=== PATIENT | male | born 1985 | race Caucasian/White ===

== ENCOUNTER 2017-10-17 21:50 | Inpatient (IN) | payer SELFPAY ==
[~2017-10-17] VITALS: Ht 167.6 cm; Wt 71.4 kg
[2017-10-17 22:24] VITALS: BP 112/62; PULSE 127; RESP 20; TEMP 99.3; O2SAT 97
[2017-10-17] MEDS ORDERED: SODIUM CHLOR 0.9% 1000 ML INJ 1,000 ML IV ONE ×2 (23:08)
[2017-10-17] MEDS ORDERED: SODIUM CHLOR 0.9% 1000 ML INJ 400 ML IV ONE (23:08)
[2017-10-17] MEDS ORDERED: MORPHINE SULFATE 8 MG/ML INJ IV PUSH ONE (23:15)
[2017-10-17] MEDS ORDERED: KETOROLAC TROMETHAMINE 30 MG/ML (IVP) VIAL IV PUSH ONE (23:15)
--- NOTE | 2017-10-17 23:55 | RADRPT ---
EXAM DATE: 10/17/2017 11:36 PM EDT AGE/SEX: 32 years / Male INDICATIONS: Fever. Cough. CLINICAL DATA: This is the patient's initial encounter. Patient reports that signs and symptoms have been present for 3 days and indicates a pain score of 5/10. MEDICAL/SURGICAL HISTORY: None. None. COMPARISON: No prior [facility] exams available for comparison. FINDINGS: Trace atelectasis versus early infiltrate right base. Lungs otherwise appear clear. No pleural effusi on. No pneumothorax. Normal heart size. Visualized osseous structures are grossly unremarkable. CONCLUSION: Trace atelectasis and/or infiltrate right base. Electronically signed by: Antony Mathew MD 10/17/2017 11:53 PM EDT
[2017-10-18] LABS: AUTOMATED NEUTROPHIL # 5.3 TH/MM3 (1.8-7.7); BASOPHIL % 0.3 % (0.0-2.0); EOSINOPHIL # 0.1 TH/MM3 (0-0.4); EOSINOPHIL % 1.1 % (0.0-4.0); LYMPHOCYTE # 2.1 TH/MM3 (1.0-4.8); MEAN CELL VOLUME 84.5 FL (80.0-100.0); MEAN CORPUSCULAR HEMOGLOBIN 29.9 PG (27.0-34.0); MEAN CORPUSCULAR HGB CONC 35.4 % (32.0-36.0); MEAN PLATELET VOLUME 7.1 FL (7.0-11.0); MONO % 11.9 % (0.0-8.0); NEUT % 61.7 % (16.0-70.0); PLATELET COUNT 233 TH/MM3 (150-450); RED BLOOD COUNT 4.03 MIL/MM3 (4.50-5.90); RED CELL DISTRIBUTION WIDTH 13.1 % (11.6-17.2); WHITE BLOOD COUNT 8.6 TH/MM3 (4.0-11.0)
[2017-10-18 00:32] LABS: ALBUMIN 3.4 GM/DL (3.4-5.0); ALT (GPT) 21 U/L (12-78); AST (GOT) 18 U/L (15-37); BICARBONATE 27.9 MEQ/L (21.0-32.0); BLOOD UREA NITROGEN 11 MG/DL (7-18); CALCIUM 8.7 MG/DL (8.5-10.1); CHLORIDE 100 MEQ/L (98-107); CREATININE 0.88 MG/DL (0.60-1.30); GLOMERULAR FILTRATION RATE 102 ML/MIN (>89); GLUCOSE,RANDOM 98 MG/DL (74-106); SODIUM (NA) 137 MEQ/L (136-145)
[2017-10-18 00:33] LABS: BILIRUBIN, URINE NEG (NEG); BLOOD, URINE TRACE (NEG); GLUCOSE,URINE NEG (NEG); KETONE, URINE NEG (NEG); NITRITE,URINE NEG (NEG); PH, URINE 5.5 (5.0-8.5); URINE COLOR YELLOW (YELLW/STRAW); URINE LEUKOCYTE ESTERASE NEG (NEG)
[2017-10-18 00:35] LABS: ALKALINE PHOSPHATASE 88 U/L (45-117); TOTAL BILIRUBIN ADULT 0.5 MG/DL (0.2-1.0); TOTAL PROTEIN 7.7 GM/DL (6.4-8.2)
--- NOTE | 2017-10-18 00:35 | PD ---
HPI Chief Complaint: Pain: Acute or Chronic Time Seen by Provider: 22:38 Travel History International Travel<30 days: No Contact w/Intl Traveler<30days: No Traveled to known affect area: No History of Present Illness HPI 32-year-old male well-nourished well-developed complains of back pain for about 3 days. Patient woke up with the pain. Primarily in the cervical distribution. It is worse with range of motion. He has a history of IV drug abuse which he states is most recently 7 months ago. He denies fever. Pain is worse with palpation as well. No weakness, numbness or tingling in extremities. No fecal urinary incontinence/change in bowel bladder habits. No perianal perineal paresthesias. PFSH Past Medical History Medical History: Denies Significant Hx Diminished Hearing: No Immunizations Current: Yes Past Surgical History Other Surgery: Yes (METAL BRANDI LEFT ANKLE) Social History Alcohol Use: No Tobacco Use: Yes Substance Use: No Allergies-Medications (Allergen,Severity, Reaction): Coded Allergies: No Known Allergies (Unverified , 10/17/17) Review of Systems Except as stated in HPI: all other systems reviewed are Neg General / Constitutional: No: Fever Physical Exam Narrative GENERAL: 32-year-old male well-nourished well-developed mild to moderate distress secondary to pain Vital Signs Date Time Temp Pulse Resp B/P (MAP) Pulse Ox O2 Delivery O2 Flow Rate FiO2 10/17/17 22:24 99.3 127 20 112/62 (79) 97 SKIN: Warm and dry. HEAD: Atraumatic. Normocephalic. EYES: Pupils equal and round. No scleral icterus. No injection or drainage. ENT: No nasal bleeding or discharge. Mucous membranes pink and moist. NECK: Trachea midline. No JVD. CARDIOVASCULAR: Tachycardia present. Regular rhythm. RESPIRATORY: No accessory muscle use. Clear to auscultation. Breath sounds equal bilaterally. GASTROINTESTINAL: Abdomen soft, non-tender, nondistended. Hepatic and splenic margins not palpable. MUSCULOSKELETAL: Extremities without clubbing, cyanosis, or edema. No obvious deformities. NEUROLOGICAL: Awake and alert. No obvious cranial nerve deficits. Motor grossly within normal limits. Five out of 5 muscle strength in the arms and legs. Normal speech. PSYCHIATRIC: Appropriate mood and affect; insight and judgment normal. Data Data Last Documented VS Vital Signs Date Time Temp Pulse Resp B/P (MAP) Pulse Ox O2 Delivery O2 Flow Rate FiO2 10/17/17 22:24 99.3 127 20 112/62 (79) 97 Orders Orders Sepsis Workup Initiated (10/17/17 ) Complete Blood Count With Diff (10/17/17 23:08) Comprehensive Metabolic Panel (10/17/17 23:08) Lactic Acid Sepsis Protocol (10/17/17 23:08) Urinalysis - C+S If Indicated (10/17/17 23:08) Blood Culture (10/17/17 23:08) Chest, Single Ap (10/17/17 23:08) Ecg Monitoring (10/17/17 23:08) Iv Access Insert/Monitor (10/17/17 23:08) Oximetry (10/17/17 23:08) Oxygen Administration (10/17/17 23:08) Morphine Inj (Morphine Inj) (10/17/17 23:15) Sodium Chlor 0.9% 1000 Ml Inj (Ns 1000 M (10/17/17 23:08) Sodium Chlor 0.9% 1000 Ml Inj (Ns 1000 M (10/17/17 23:08) Sodium Chlor 0.9% 1000 Ml Inj (Ns 1000 M (10/17/17 23:08) Ketorolac Inj (Toradol Inj) (10/17/17 23:15) Mri C Spine W&W/O Contrast (10/18/17 ) Mri T Spine W & W/O Contrast (10/18/17 ) Mri L Spine W&W/O Contrast (10/18/17 ) Azithromycin (Zithromax) (10/18/17 01:15) Labs Laboratory Tests Test 10/17/17 23:45 10/18/17 00:10 White Blood Count 8.6 TH/MM3 Red Blood Count 4.03 MIL/MM3 Hemoglobin 12.0 GM/DL Hematocrit 34.0 % Mean Corpuscular Volume 84.5 FL Mean Corpuscular Hemoglobin 29.9 PG Mean Corpuscular Hemoglobin Concent 35.4 % Red Cell Distribution Width 13.1 % Platelet Count 233 TH/MM3 Mean Platelet Volume 7.1 FL Neutrophils (%) (Auto) 61.7 % Lymphocytes (%) (Auto) 25.0 % Monocytes (%) (Auto) 11.9 % Eosinophils (%) (Auto) 1.1 % Basophils (%) (Auto) 0.3 % Neutrophils # (Auto) 5.3 TH/MM3 Lymphocytes # (Auto) 2.1 TH/MM3 Monocytes # (Auto) 1.0 TH/MM3 Eosinophils # (Auto) 0.1 TH/MM3 Basophils # (Auto) 0.0 TH/MM3 CBC Comment DIFF FINAL Differential Comment Blood Urea Nitrogen 11 MG/DL Creatinine 0.88 MG/DL Random Glucose 98 MG/DL Total Protein 7.7 GM/DL Albumin 3.4 GM/DL Calcium Level 8.7 MG/DL Alkaline Phosphatase 88 U/L Aspartate Amino Transf (AST/SGOT) 18 U/L Alanine Aminotransferase (ALT/SGPT) 21 U/L Total Bilirubin 0.5 MG/DL Sodium Level 137 MEQ/L Potassium Level 3.7 MEQ/L Chloride Level 100 MEQ/L Carbon Dioxide Level 27.9 MEQ/L Anion Gap 9 MEQ/L Estimat Glomerular Filtration Rate 102 ML/MIN Lactic Acid Level 1.6 mmol/L Urine Color YELLOW Urine Turbidity CLEAR Urine pH 5.5 Urine Specific [employer] 1.006 Urine Protein NEG mg/dL Urine Glucose (UA) NEG mg/dL Urine Ketones NEG mg/dL Urine Occult Blood TRACE Urine Nitrite NEG Urine Bilirubin NEG Urine Urobilinogen LESS THAN 2.0 MG/DL Urine Leukocyte Esterase NEG Urine RBC 1 /hpf Urine WBC 1 /hpf Microscopic Urinalysis Comment CATH-CULT NOT IND MDM Medical Decision Making Medical Screen Exam Complete: Yes Emergency Medical Condition: Yes Medical Record Reviewed: Yes Differential Diagnosis Epidural abscess, torticollis, cervicalgia nonspecified, pneumonia, pneumothorax , chronic pain Narrative Course CBC & BMP Diagram 10/17/17 23:45 Total Protein 7.7, Albumin 3.4, Calcium Level 8.7, Alkaline Phosphatase 88, Aspartate Amino Transf (AST/SGOT) 18, Alanine Aminotransferase (ALT/SGPT) 21, Total Bilirubin 0.5 Patient has a history of IV drug abuse and back pain as well as tachycardia. There is a concern for epidural abscess. MRIs of the cervical lumbar and thoracic spine added on. X-ray reveals a possible right base density concerning for infection. First dose of azithromycin prescribed here. If the remainder of the workup, the MRIs, appear to be unremarkable the patient go home with the azithromycin prescription and pain medication per discretion of NAM Herrera who will assume care moving forward, 1:10 AM. Margarito Norwood MD October 18, 2017 00:35
[2017-10-18] MEDS ORDERED: GADODIAMIDE PF 287 MG/ML 5 ML VIAL (for RAD MRI) IVCONTRAST ONE (01:13)
[2017-10-18] MEDS ORDERED: AZITHROMYCIN 250 MG TAB PO ONE (01:15)
--- NOTE | 2017-10-18 01:44 | RADRPT ---
EXAM DATE: 10/18/2017 1:17 AM EDT AGE/SEX: 32 years / Male INDICATIONS: . Neck and upper back pain with no known injury. CLINICAL DATA: This is the patient's initial encounter. Patient reports that signs and symptoms have been present for 4 - 6 days and indicates a pain score of 6/10. MEDICAL/SURGICAL HISTORY: Hepatitis C. Fusion, lumbar. ORIF ankle, hand COMPARISON: No prior [facility] exams available for comparison. TECHNIQUE: Multiplanar, multisequence MRI examination of the cervical spine was performed without an d with 15 ml Omniscan (gadodiamide) contrast as a single exam dose. FINDINGS: Reactive appearing inflammatory changes and enhancement seen of the paraspinal soft tissues of the ce rvical spine, epicenter at C5/C6. An elongated central fluid collection seen posterior to C5 and C6, measures approximately 6 x 7 mm in greatest transaxial dimension and 2.9 cm in length. It extends fro m the C4/C5 to the C6/C7 intervertebral disc levels. A very small and focal fluid collection seen ant erior to the C5/C6 intervertebral disc and measures 4 x 9 x 10 mm. There is approximately 1 mm thick fluid in the retropharyngeal space from C1 through C7. C5/C6 disc is desiccated and has mild loss of height. There is mild, circumferential osseous ridging. Mild endplate marrow edema seen of the C5 and C6 vertebral bodies. There is mild spinal stenosis and mild bilateral foraminal stenosis at this lev el. There is no enhancement of the intervertebral disc. Mildly desiccated C3/C4, C4/C5 and C6/C7 discs with annular bulges but no significant associated fora carol or spinal stenosis. CONCLUSION: 1. Degenerative disc disease at C5/C6 without definite discitis but there does appear to be some ass ociated inflammatory change, including a small epidural fluid collection posterior to the C5 and C6 v ertebral bodies and small fluid diffusely in the retropharyngeal space. Early retropharyngeal and/or epidural abscesses are in the differential. Mild marrow edema of the C5 and C6 vertebral bodies appea rs reactive. No definite osteomyelitis at this time. Mild spinal and bilateral foraminal stenosis at C5/C6. 2. Mild and typical-appearing degenerative disc changes at other levels without significant foramina l or spinal stenosis. Electronically signed by: Antony Mathew MD 10/18/2017 1:42 AM EDT
--- NOTE | 2017-10-18 01:54 | RADRPT ---
EXAM DATE: 10/18/2017 1:36 AM EDT AGE/SEX: 32 years / Male INDICATIONS: . Neck and upper back pain with no known injury. CLINICAL DATA: This is the patient's initial encounter. Patient reports that signs and symptoms have been present for 4 - 6 days and indicates a pain score of 6/10. MEDICAL/SURGICAL HISTORY: Hepatitis C. Fusion, lumbar. ankle orif, hand surgery COMPARISON: No prior [facility] exams available for comparison. TECHNIQUE: Multiplanar, multisequence MRI of the thoracic spine was performed without and with 15 ml Omniscan (gadodiamide) contrast as a single exam dose. FINDINGS: Vertebrae: Normal vertebral body height. Homogeneous marrow signal. Alignment: Normal. Cord: Normal position and configuration. Post Contrast: No abnormal areas of enhancement are seen in the cord, dural or paraspinal regions. T1-T2: The thecal sac has a normal diameter. No evidence of disc bulge or protrusion. T2-T3: The thecal sac has a normal diameter. No evidence of disc bulge or protrusion. T3-T4: The thecal sac has a normal diameter. No evidence of disc bulge or protrusion. T4-T5: The thecal sac has a normal diameter. No evidence of disc bulge or protrusion. T5-T6: The thecal sac has a normal diameter. No evidence of disc bulge or protrusion. T6-T7: The thecal sac has a normal diameter. No evidence of disc bulge or protrusion. T7-T8: The thecal sac has a normal diameter. No evidence of disc bulge or protrusion. T8-T9: The thecal sac has a normal diameter. No evidence of disc bulge or protrusion. T9-T10: The thecal sac has a normal diameter. No evidence of disc bulge or protrusion. T10-T11: The thecal sac has a normal diameter. No evidence of disc bulge or protrusion. T11-T12: The thecal sac has a normal diameter. No evidence of disc bulge or protrusion. T12-L1: The thecal sac has a normal diameter. No evidence of disc bulge or protrusion. CONCLUSION: 1. MRI of the thoracic spine within normal limits. Electronically signed by: Antony Mathew MD 10/18/2017 1:53 AM EDT
--- NOTE | 2017-10-18 02:00 | RADRPT ---
EXAM DATE: 10/18/2017 1:23 AM EDT AGE/SEX: 32 years / Male INDICATIONS: . Neck and upper back pain with no known injury. History of lumbar fusion. CLINICAL DATA: This is the patient's initial encounter. Patient reports that signs and symptoms have been present for 4 - 6 days and indicates a pain score of 6/10. MEDICAL/SURGICAL HISTORY: Hepatitis C. Fusion, lumbar. orif ankle, hand surgery COMPARISON: No prior [facility] exams available for comparison. TECHNIQUE: Multiplanar, multisequence MRI examination of the lumbar spine was performed without and with 15 ml Omniscan (gadodiamide) contrast as a single exam dose. FINDINGS: Old, mild to moderate superior endplate compression fracture seen of the L2 vertebral body. Patient i s status post posterior fusion from L1 through L3. Alignment is near-anatomic. Mild, chronic fracture -associated spinal stenosis seen at the L1/L2 level. No significant foraminal stenosis. Other vertebr al bodies are intact. Normal conus terminus at the T12/L1 level. No concerning abnormal enhancement. T12-L1: Normal. L1-L2: Mildly desiccated disc with bulging of the annulus. This level is fused. Mild, chronic resid ual spinal stenosis. No foraminal stenosis. L2-L3: The thecal sac has a normal diameter. No evidence of disc bulge or protrusion. The neural foramina are patent bilaterally. This level is fused. No significant recurrent or residual foraminal or spinal stenosis. L3-L4: Normal disc. Mild bilateral facet osteoarthritis. No foraminal or spinal stenosis. L4-L5: Mild bulging of the disc annulus and mild to moderate bilateral facet osteoarthritis. No sig nificant foraminal or spinal stenosis. L5-S1: The disc is desiccated. Minimal loss of height. Small, broad but mostly left paracentral/for aminal disc protrusion and moderate bilateral facet osteoarthritis. There is mild bilateral foraminal stenosis. Slight effacement of the left lateral recess without evidence of transiting nerve root imp ingement. CONCLUSION: 1. Surgical, remote posttraumatic and multilevel degenerative changes seen of the lumbar spine. Mild bilateral foraminal encroachment at L5/S1. 2. No acute fracture or subluxation. No high-grade stenosis. No acute lumbar spine inflammatory hood ges. Electronically signed by: Antony Mathew MD 10/18/2017 1:58 AM EDT
--- NOTE | 2017-10-18 02:13 | PD ---
Data Data Last Documented VS Vital Signs Date Time Temp Pulse Resp B/P (MAP) Pulse Ox O2 Delivery O2 Flow Rate FiO2 10/17/17 22:24 99.3 127 20 112/62 (79) 97 Orders Orders Sepsis Workup Initiated (10/17/17 ) Complete Blood Count With Diff (10/17/17 23:08) Comprehensive Metabolic Panel (10/17/17 23:08) Lactic Acid Sepsis Protocol (10/17/17 23:08) Urinalysis - C+S If Indicated (10/17/17 23:08) Blood Culture (10/17/17 23:08) Chest, Single Ap (10/17/17 23:08) Ecg Monitoring (10/17/17 23:08) Iv Access Insert/Monitor (10/17/17 23:08) Oximetry (10/17/17 23:08) Oxygen Administration (10/17/17 23:08) Morphine Inj (Morphine Inj) (10/17/17 23:15) Sodium Chlor 0.9% 1000 Ml Inj (Ns 1000 M (10/17/17 23:08) Sodium Chlor 0.9% 1000 Ml Inj (Ns 1000 M (10/17/17 23:08) Sodium Chlor 0.9% 1000 Ml Inj (Ns 1000 M (10/17/17 23:08) Ketorolac Inj (Toradol Inj) (10/17/17 23:15) Mri C Spine W&W/O Contrast (10/18/17 ) Mri T Spine W & W/O Contrast (10/18/17 ) Mri L Spine W&W/O Contrast (10/18/17 ) Azithromycin (Zithromax) (10/18/17 01:15) Gadodiamide Pf Inj (Omniscan Pf Inj) (10/18/17 01:13) Cefepime Inj (Maxipime Inj) (10/18/17 02:15) Vancomycin Inj (Vancomycin Inj) (10/18/17 02:15) NPO (10/18/17 02:16) Labs Laboratory Tests Test 10/17/17 23:45 10/18/17 00:10 White Blood Count 8.6 TH/MM3 Red Blood Count 4.03 MIL/MM3 Hemoglobin 12.0 GM/DL Hematocrit 34.0 % Mean Corpuscular Volume 84.5 FL Mean Corpuscular Hemoglobin 29.9 PG Mean Corpuscular Hemoglobin Concent 35.4 % Red Cell Distribution Width 13.1 % Platelet Count 233 TH/MM3 Mean Platelet Volume 7.1 FL Neutrophils (%) (Auto) 61.7 % Lymphocytes (%) (Auto) 25.0 % Monocytes (%) (Auto) 11.9 % Eosinophils (%) (Auto) 1.1 % Basophils (%) (Auto) 0.3 % Neutrophils # (Auto) 5.3 TH/MM3 Lymphocytes # (Auto) 2.1 TH/MM3 Monocytes # (Auto) 1.0 TH/MM3 Eosinophils # (Auto) 0.1 TH/MM3 Basophils # (Auto) 0.0 TH/MM3 CBC Comment DIFF FINAL Differential Comment Blood Urea Nitrogen 11 MG/DL Creatinine 0.88 MG/DL Random Glucose 98 MG/DL Total Protein 7.7 GM/DL Albumin 3.4 GM/DL Calcium Level 8.7 MG/DL Alkaline Phosphatase 88 U/L Aspartate Amino Transf (AST/SGOT) 18 U/L Alanine Aminotransferase (ALT/SGPT) 21 U/L Total Bilirubin 0.5 MG/DL Sodium Level 137 MEQ/L Potassium Level 3.7 MEQ/L Chloride Level 100 MEQ/L Carbon Dioxide Level 27.9 MEQ/L Anion Gap 9 MEQ/L Estimat Glomerular Filtration Rate 102 ML/MIN Lactic Acid Level 1.6 mmol/L Urine Color YELLOW Urine Turbidity CLEAR Urine pH 5.5 Urine Specific [employer] 1.006 Urine Protein NEG mg/dL Urine Glucose (UA) NEG mg/dL Urine Ketones NEG mg/dL Urine Occult Blood TRACE Urine Nitrite NEG Urine Bilirubin NEG Urine Urobilinogen LESS THAN 2.0 MG/DL Urine Leukocyte Esterase NEG Urine RBC 1 /hpf Urine WBC 1 /hpf Microscopic Urinalysis Comment CATH-CULT NOT IND MDM Medical Record Reviewed: Yes Supervised Visit with MAGNUS: No Narrative Course See previous providers notes for complete history of present illness. I assumed care of this patient pending MRI imaging. Briefly this is a 32-year- old male with remote history of IV drug abuse who presents with spontaneous neck pain and chills and myalgias started 3-4 days ago. He was noted to be tachycardic in triage. MRI of the cervical spine reveals CONCLUSION: 1. Degenerative disc disease at C5/C6 without definite discitis but there does appear to be some associated inflammatory change, including a small epidural fluid collection posterior to the C5 and C6 vertebral bodies and small fluid diffusely in the retropharyngeal space. Early retropharyngeal and/or epidural abscesses are in the differential. Mild marrow edema of the C5 and C6 vertebral bodies appears reactive. No definite osteomyelitis at this time. Mild spinal and bilateral foraminal stenosis at C5/C6. 2. Mild and typical-appearing degenerative disc changes at other levels without significant foraminal or spinal stenosis. There is evidence of epidural abscess at the C5-C6 region. Cefepime and vancomycin initiated. I discussed with Dr. Baum the neurosurgeon palliative care nurse practitioner who would like the patient to remain NPO and admit to the medicine team. Diagnosis Primary Impression: Epidural abscess Admitting Information Admitting Physician Requests: Admit Sandip Herrera October 18, 2017 02:12
[2017-10-18] MEDS ORDERED: VANCOMYCIN INJ 1,000 MG in SODIUM CHLOR 0.9% 250 ML INJ 250 ML IV ONE (02:15)
[2017-10-18] MEDS ORDERED: CEFEPIME INJ 2,000 MG in SODIUM CHLORIDE 0.9% INJ 100 ML IV ONE (02:15)
[2017-10-18] MEDS ORDERED: LACTULOSE SYRUP 20 GM/30 ML CUP PO PRN (02:45)
[2017-10-18] MEDS ORDERED: ACETAMINOPHEN 325 MG TAB PO PRN (02:45)
[2017-10-18] MEDS ORDERED: SENNOSIDES 8.6 MG TAB PO PRN (02:45)
[2017-10-18] MEDS ORDERED: BISACODYL 10 MG SUPP RECTAL PRN (02:45)
[2017-10-18] MEDS ORDERED: SODIUM CHLORIDE 0.9% FLUSH 10 ML FLUSH IV FLUSH PRN (02:45)
[2017-10-18] MEDS ORDERED: Vancomycin Consult Pharmacy 1 EA OTHER SCH (02:45)
[2017-10-18] MEDS ORDERED: MORPHINE SULFATE 2 MG/ML SYRINGE IV PUSH PRN (02:45)
[2017-10-18] MEDS ORDERED: MAGNESIUM HYDROXIDE SUSP 30 ML CUP PO PRN (02:45)
[2017-10-18] MEDS ORDERED: METOCLOPRAMIDE HCL 10 MG/2 ML VIAL IV PUSH PRN (02:45)
[2017-10-18 04:05] VITALS: BP 121/72; PULSE 80; RESP 16; O2SAT 98
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
[2017-10-18] MEDS: SODIUM CHLOR 0.9% 1000 ML INJ 1,000 ML IV SCH ×3 (07:26→22:41)
[2017-10-18] MEDS: ACETAMINOPHEN/HYDROcodone 325 MG/5 MG TAB PO PRN (07:27)
[2017-10-18 07:31] VITALS: BP 127/79; PULSE 82; RESP 18; O2SAT 97
[2017-10-18 07:32] VITALS: O2SAT 97
[2017-10-18 08:55] VITALS: BP 113/59; PULSE 95; RESP 18; O2SAT 96
[2017-10-18] MEDS: SODIUM CHLORIDE 0.9% FLUSH 10 ML FLUSH IV FLUSH SCH ×2 (09:00→21:00)
[2017-10-18] MEDS: MORPHINE SULFATE 4 MG/ML INJ IV PUSH PRN ×5 (09:04→21:36)
[2017-10-18] MEDS: DOCUSATE SODIUM 50 MG/SENNA 8.6 MG TAB PO SCH ×2 (09:04→21:00)
--- NOTE | 2017-10-18 09:12 | PD.CONS ---
History of Present Illness Service Neurosurgery Consult Requested By Medicine service Reason for Consult Cervical spine abscess Primary Care Physician No Primary Care Physician Diagnoses: History of Present Illness The patient is a 32-year-old male who states that this past Friday, he developed progressive severe neck pain. He felt a mild fever yesterday. No other chills or sweats. No complaint of headache, blurred vision, diplopia, dizziness, vertigo, speech difficulty, confusion, pain weakness or numbness in the extremities. He does give a history of IV drug abuse, indicating last use approximately 7 months ago. Review of Systems Constitutional: COMPLAINS OF: Fatigue, DENIES: Fever, Weight loss, Chills, Dizziness Eyes: DENIES: Blurred vision, Diplopia Ears, nose, mouth, throat: DENIES: Vertigo Respiratory: DENIES: Cough Cardiovascular: DENIES: Chest pain Gastrointestinal: DENIES: Abdominal pain, Diarrhea, Nausea, Vomiting Genitourinary: DENIES: Urinary frequency, Urinary incontinence Musculoskeletal: COMPLAINS OF: Back pain, Neck pain, DENIES: Joint pain, Muscle aches, Joint Swelling Hematologic/lymphatic: DENIES: Bruising Neurologic: DENIES: Abnormal gait, Headache Psychiatric: DENIES: Confusion Past Family Social History Allergies: Coded Allergies: No Known Allergies (Unverified , 10/17/17) Past Medical History No history of cardiac or pulmonary disease, diabetes or hypertension. Denies any history of anxiety depression bipolar disorder ADHD Past Surgical History Previous lumbar spine fusion. Left ankle surgery Active Ordered Medications No prescription medications Family History Negative cardiac disease, cancer Social History Smokes 1 pack cigarettes per day. Occasional alcohol use IV drug abuse-last time approximately 7 months ago per patient Physical Exam Vital Signs Vital Signs Date Time Temp Pulse Resp B/P (MAP) Pulse Ox O2 Delivery O2 Flow Rate FiO2 10/18/17 08:55 95 18 113/59 (77) 96 Room Air 10/18/17 07:32 97 Nasal Cannula 2.00 10/18/17 07:32 97 Nasal Cannula 2.00 10/18/17 07:31 82 18 127/79 (95) 97 Nasal Cannula 2.00 10/18/17 04:05 80 16 121/72 (88) 98 Room Air 10/17/17 22:24 99.3 127 20 112/62 (79) 97 Physical Exam GENERAL: This is a well-nourished, well-developed patient, no apparent distress. SKIN: Multiple erythematous lesions throughout the upper and lower extremities. 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 Normocephalic. No temporal or scalp tenderness. EYES: Sclerae are clear and nonicteric ENT: No facial edema or ecchymosis. No periorbital edema. No CSF otorrhea or rhinorrhea. No palpable facial fracture or deformity. NECK: Trachea midline. Moderate cervical spine tenderness. Decreased cervical range of motion with pain with rotation CARDIOVASCULAR: Regular rate and rhythm without murmurs, gallops, or rubs. RESPIRATORY: Clear to auscultation. Breath sounds equal bilaterally. No wheezes , rales, or rhonchi. GASTROINTESTINAL: Abdomen soft, non-tender, nondistended. No hepato-splenomegaly , or palpable masses. No guarding. MUSCULOSKELETAL: Extremities without cyanosis, or edema. No joint tenderness, or edema noted. No calf tenderness. Dorsalis pedis pulses 2+ bilateral NEUROLOGICAL: Awake and alert Oriented X 3 Speech is clear Conversant and appropriate Follow simple commands well Answers questions appropriately Reasonable judgment and insight Recent and remote memory are intact No evidence of anxiety or depression Pupils are equal and reactive to accommodation. Extra-ocular movements, visual silverio to confrontation, facial sensorimotor, tongue, palate, sternocleidomastoid testing, hearing to finger rub testing, and bilateral shoulder shrug are all intact. Sensation is intact to light touch in all extremities Strength normal major flexion and extension groups all extremities Eli's absent bilaterally No ankle clonus Plantar responses absent bilateral Fine motor movements intact upper extremities Laboratory Laboratory Tests Test 10/17/17 23:45 10/18/17 00:10 White Blood Count 8.6 Red Blood Count 4.03 Hemoglobin 12.0 Hematocrit 34.0 Mean Corpuscular Volume 84.5 Mean Corpuscular Hemoglobin 29.9 Mean Corpuscular Hemoglobin Concent 35.4 Red Cell Distribution Width 13.1 Platelet Count 233 Mean Platelet Volume 7.1 Neutrophils (%) (Auto) 61.7 Lymphocytes (%) (Auto) 25.0 Monocytes (%) (Auto) 11.9 Eosinophils (%) (Auto) 1.1 Basophils (%) (Auto) 0.3 Neutrophils # (Auto) 5.3 Lymphocytes # (Auto) 2.1 Monocytes # (Auto) 1.0 Eosinophils # (Auto) 0.1 Basophils # (Auto) 0.0 CBC Comment DIFF FINAL Differential Comment Blood Urea Nitrogen 11 Creatinine 0.88 Random Glucose 98 Total Protein 7.7 Albumin 3.4 Calcium Level 8.7 Alkaline Phosphatase 88 Aspartate Amino Transf (AST/SGOT) 18 Alanine Aminotransferase (ALT/SGPT) 21 Total Bilirubin 0.5 Sodium Level 137 Potassium Level 3.7 Chloride Level 100 Carbon Dioxide Level 27.9 Anion Gap 9 Estimat Glomerular Filtration Rate 102 Lactic Acid Level 1.6 Urine Color YELLOW Urine Turbidity CLEAR Urine pH 5.5 Urine Specific [place] 1.006 Urine Protein NEG Urine Glucose (UA) NEG Urine Ketones NEG Urine Occult Blood TRACE Urine Nitrite NEG Urine Bilirubin NEG Urine Urobilinogen LESS THAN 2.0 Urine Leukocyte Esterase NEG Urine RBC 1 Urine WBC 1 Microscopic Urinalysis Comment CATH-CULT NOT IND Date/Time Source Procedure Growth Status 10/17/17 23:45 Blood Peripheral Aerobic Blood Culture Pending Received 10/17/17 23:45 Blood Peripheral Anaerobic Blood Culture Pending Received Result Diagram: 10/17/17 2345 10/17/17 2345 Imaging 10/18/2017 MRI cervical thoracic and lumbar spine images reviewed by the undersigned. There is a moderate fluid collection posterior to the C5-6 vertebral bodies most consistent with epidural abscess. Moderate overall cord compression without definite edema in the cord. Thoracic Spine MRI 10/18/17 0000 Signed Impressions: CONCLUSION: 1. MRI of the thoracic spine within normal limits. Lumbar Spine MRI 10/18/17 0000 Signed Impressions: CONCLUSION: 1. Surgical, remote posttraumatic and multilevel degenerative changes seen of the lumbar spine. Mild bilateral foraminal encroachment at L5/S1. 2. No acute fracture or subluxation. No high-grade stenosis. No acute lumbar s pine inflammatory changes. Cervical Spine MRI 10/18/17 0000 Signed Impressions: CONCLUSION: 1. Degenerative disc disease at C5/C6 without definite discitis but there does appear to be some associated inflammatory change, including a small epidural f luid collection posterior to the C5 and C6 vertebral bodies and small fluid dif fusely in the retropharyngeal space. Early retropharyngeal and/or epidural absc esses are in the differential. Mild marrow edema of the C5 and C6 vertebral bod ies appears reactive. No definite osteomyelitis at this time. Mild spinal and b ilateral foraminal stenosis at C5/C6. 2. Mild and typical-appearing degenerative disc changes at other levels withou t significant foraminal or spinal stenosis. Chest X-Ray 10/17/17 [id number] Signed Impressions: CONCLUSION: Trace atelectasis and/or infiltrate right base. Assessment and Plan Assessment and Plan Impression: Cervical epidural fluid collection consistent with abscess Plan: Discussed at length with the patient. I have advised that he proceed today with surgical intervention. Risk of spinal cord injury and myelitis with conservative treatment fully discussed. He appears to fully understand the risks of nonoperative treatment and adamantly refuses surgical intervention. Continue IV antibiotics, ID. Rogelio Baum MD October 18, 2017 09:12
[2017-10-18] MEDS ORDERED: PHARMACY ORDERED LAB ONE (09:15)
[2017-10-18 12:00] VITALS: BP 135/81; PULSE 73; RESP 17; TEMP 97.6; O2SAT 98
[2017-10-18] MEDS ORDERED: ceFAZolin INJ 1,000 MG VIAL IV ONE (12:00)
[2017-10-18] MEDS ORDERED: PROPOFOL 200 MG/20 ML AMP IV ONE (12:00)
[2017-10-18] MEDS ORDERED: ROCURONIUM INJ 50 MG/5 ML SYRINGE IV PUSH ONE (12:00)
[2017-10-18] MEDS ORDERED: METOPROLOL TARTRATE 5 MG/5 ML VIAL IV ONE (12:00)
[2017-10-18] MEDS ORDERED: PHENYLEPH/NS 1000 MCG/10 ML SYR IV ONE (12:00)
[2017-10-18] MEDS ORDERED: LIDOCAINE HCL 1% PF 5 ML SYRINGE OTHER ONE (12:00)
[2017-10-18] MEDS ORDERED: SODIUM CHLORIDE 0.9% 10 ML VIAL IV ONE (12:00)
--- NOTE | 2017-10-18 12:39 | HHI.PR ---
Addendum to Inpatient Note Additional Information Patient seen and examined. Patient states pain is controlled at present. He denies any complaints of headache, dizziness or vision changes. He denies any weakness or numbness or tingling. He denies any bowel or bladder difficulties. Patient seen in consultation by Dr. Baum of neurosurgery who has recommended proceeding forward with surgical intervention today. Despite fully understanding the risk of nonoperative treatment patient adamantly refuses surgical intervention at this time. Discussed with patient the possibility of worsening infection leading to sepsis, paralysis, brain injury and even . Awaiting infectious disease consultation. Patient does admit to a history of IV drug use but states he last used 7 months ago. Faby Becker October 18, 2017 12:39
--- NOTE | 2017-10-18 15:32 | PD.CONS ---
History of Present Illness Service Infectious disease Consult Requested By Dr Aden Reason for Consult Evaluate patient with cervical spine abscess Primary Care Physician No Primary Care Physician Diagnoses: History of Present Illness Patient seen and examined. Records reviewed. Patient is a 32-year-old male, presented to the hospital complaining of 3 day history of neck pain. Pain gets worse when he moves. He denies any problem with weakness, bowel or urinary problem. He has not had any fever chills or sweats. Denies any respiratory complaints, urinary complain or any nausea or vomiting or diarrhea. Patient has known IV drug use although he states that the last time he used he was 7 months ago. 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 Highest temperature since admission has been 99+. MRI of the cervical spine is showing fluid collection around C5-C6. He also had thoracic and lumbar MRI which were both negative. Infectious disease consultation has been requested to evaluate the patient. Review of Systems Constitutional: DENIES: Fever, Chills, Night Sweats Eyes: DENIES: Eye pain Ears, nose, mouth, throat: DENIES: Nasal discharge, Oral lesions, Throat pain, Ear Pain, Sinus Pain Respiratory: DENIES: Cough, Shortness of breath Cardiovascular: DENIES: Chest pain, Palpitations, Syncope Gastrointestinal: DENIES: Abdominal pain, Diarrhea, Nausea, Vomiting, Difficulty Swallowing Genitourinary: DENIES: Urgency, Dysuria Musculoskeletal: COMPLAINS OF: Neck pain Integumentary: COMPLAINS OF: Rash, DENIES: Pruritus Neurologic: DENIES: Localized weakness Psychiatric: DENIES: Hallucinations Past Family Social History Allergies: Coded Allergies: No Known Allergies (Unverified , 10/17/17) Past Medical History IVDU Past Surgical History Left ankle surgery Lumbar fusion Active Ordered Medications Current Medications Medications (Trade) Dose Ordered Sig/Walt Route Start Time Stop Time Status Last Admin Pharmacy Profile Note 0 ml @ 0 mls/hr UNSCH OTHER 10/18/17 02:45 Cefepime HCl 1000 mg/Sodium Chloride 100 ml @ 200 mls/hr Q12H IV 10/18/17 21:00 (Ativan Inj) 1 mg Q2H PRN IV PUSH 10/18/17 02:45 Sodium Chloride 1,000 ml @ 100 mls/hr Q10H IV 10/18/17 02:41 10/18/17 12:08 (NS Flush) 2 ml UNSCH PRN IV FLUSH 10/18/17 02:45 (NS Flush) 2 ml BID IV FLUSH 10/18/17 09:00 10/18/17 09:00 (Reglan Inj) 5 mg Q6H PRN IV PUSH 10/18/17 02:45 (Tylenol) 650 mg Q6H PRN PO 10/18/17 02:45 (Bovina 5-325 Mg) 1 tab Q4H PRN PO 10/18/17 02:45 10/18/17 07:27 (Susanne-Colace) 1 tab BID PO 10/18/17 09:00 10/18/17 09:04 (Milk Of Magnesia Liq) 30 ml Q12H PRN PO 10/18/17 02:45 (Senokot) 17.2 mg Q12H PRN PO 10/18/17 02:45 (Dulcolax Supp) 10 mg DAILY PRN RECTAL 10/18/17 02:45 (Lactulose Liq) 30 ml DAILY PRN PO 10/18/17 02:45 (Morphine Inj) 2 mg Q3H PRN IV PUSH 10/18/17 07:30 10/18/17 12:08 Vancomycin HCl 1250 mg/Sodium Chloride 262.5 ml @ 250 mls/hr Q12H IV 10/18/17 16:00 Family History Noncontributory Social History Tobacco use: 1 PPD Alcohol use: Occasionally Illicit drug use: states last use was 7 months Physical Exam Vital Signs Vital Signs Date Time Temp Pulse Resp B/P (MAP) Pulse Ox O2 Delivery O2 Flow Rate FiO2 10/18/17 12:00 97.6 73 17 135/81 (99) 98 10/18/17 11:52 10/18/17 08:55 95 18 113/59 (77) 96 Room Air 10/18/17 07:32 97 Nasal Cannula 2.00 10/18/17 07:32 97 Nasal Cannula 2.00 10/18/17 07:31 82 18 127/79 (95) 97 Nasal Cannula 2.00 10/18/17 04:05 80 16 121/72 (88) 98 Room Air 10/17/17 22:24 99.3 127 20 112/62 (79) 97 Physical Exam GENERAL: Patient is a well-nourished, well-developed male, awake and alert, not in respiratory distress. SKIN: Warm and dry. Has scattered small eschars face, UE and LE. No ecchymoses and no evidence of embolic lesions. HEAD: Atraumatic. Normocephalic. No temporal wasting, or tenderness. EYES: [place] conjunctiva. No petechia or hemorrhage. Pupils equal, round and reactive to light. Extraocular movements full and intact. No scleral icterus. No injection or drainage. EARS, NOSE AND THROAT: Nose without bleeding or purulent nasal discharge. No sinus tenderness. Mucous membranes pink and moist. No oral lesions noted. No exudate. No oral thrush. NECK: Trachea midline. Supple and not tender, no meningeal signs CARDIOVASCULAR: Regular rate and rhythm. No murmurs, rubs or gallops heard RESPIRATORY: Clear to auscultation. Breath sounds equal bilaterally. No rales , wheezing or rhonchi ABDOMEN: Soft, non-tender, nondistended. Bowel sounds present and normoactive. No guarding. No rebound. No organomegaly. EXTREMITIES: No clubbing, cyanosis, or edema.No joint effusion, has good ROM. No calf tenderness. Well perfused and warm. NEUROLOGICAL: Awake and alert. Cranial nerves grossly intact. Motor grossly within normal limits. PSYCHIATRIC: Normal affect, calm and cooperative. LINE: No evidence of infection Laboratory Laboratory Tests Test 10/17/17 23:45 10/18/17 00:10 White Blood Count 8.6 Red Blood Count 4.03 Hemoglobin 12.0 Hematocrit 34.0 Mean Corpuscular Volume 84.5 Mean Corpuscular Hemoglobin 29.9 Mean Corpuscular Hemoglobin Concent 35.4 Red Cell Distribution Width 13.1 Platelet Count 233 Mean Platelet Volume 7.1 Neutrophils (%) (Auto) 61.7 Lymphocytes (%) (Auto) 25.0 Monocytes (%) (Auto) 11.9 Eosinophils (%) (Auto) 1.1 Basophils (%) (Auto) 0.3 Neutrophils # (Auto) 5.3 Lymphocytes # (Auto) 2.1 Monocytes # (Auto) 1.0 Eosinophils # (Auto) 0.1 Basophils # (Auto) 0.0 CBC Comment DIFF FINAL Differential Comment Blood Urea Nitrogen 11 Creatinine 0.88 Random Glucose 98 Total Protein 7.7 Albumin 3.4 Calcium Level 8.7 Alkaline Phosphatase 88 Aspartate Amino Transf (AST/SGOT) 18 Alanine Aminotransferase (ALT/SGPT) 21 Total Bilirubin 0.5 Sodium Level 137 Potassium Level 3.7 Chloride Level 100 Carbon Dioxide Level 27.9 Anion Gap 9 Estimat Glomerular Filtration Rate 102 Lactic Acid Level 1.6 Urine Color YELLOW Urine Turbidity CLEAR Urine pH 5.5 Urine Specific [place] 1.006 Urine Protein NEG Urine Glucose (UA) NEG Urine Ketones NEG Urine Occult Blood TRACE Urine Nitrite NEG Urine Bilirubin NEG Urine Urobilinogen LESS THAN 2.0 Urine Leukocyte Esterase NEG Urine RBC 1 Urine WBC 1 Microscopic Urinalysis Comment CATH-CULT NOT IND Date/Time Source Procedure Growth Status 10/17/17 23:45 Blood Peripheral Aerobic Blood Culture - Preliminary NO GROWTH IN 1 DAY Resulted 10/17/17 23:45 Blood Peripheral Anaerobic Blood Culture - Preliminary NO GROWTH IN 1 DAY Resulted Result Diagram: 10/17/17 2345 10/17/17 2345 Imaging RADIOLOGY STUDIES/FILMS REVIEWED Last Impressions Thoracic Spine MRI 10/18/17 0000 Signed Impressions: CONCLUSION: 1. MRI of the thoracic spine within normal limits. Lumbar Spine MRI 10/18/17 0000 Signed Impressions: CONCLUSION: 1. Surgical, remote posttraumatic and multilevel degenerative changes seen of the lumbar spine. Mild bilateral foraminal encroachment at L5/S1. 2. No acute fracture or subluxation. No high-grade stenosis. No acute lumbar s pine inflammatory changes. Cervical Spine MRI 10/18/17 0000 Signed Impressions: CONCLUSION: 1. Degenerative disc disease at C5/C6 without definite discitis but there does appear to be some associated inflammatory change, including a small epidural f luid collection posterior to the C5 and C6 vertebral bodies and small fluid dif fusely in the retropharyngeal space. Early retropharyngeal and/or epidural absc esses are in the differential. Mild marrow edema of the C5 and C6 vertebral bod ies appears reactive. No definite osteomyelitis at this time. Mild spinal and b ilateral foraminal stenosis at C5/C6. 2. Mild and typical-appearing degenerative disc changes at other levels withou t significant foraminal or spinal stenosis. Chest X-Ray 10/17/17 5647 Signed Impressions: CONCLUSION: Trace atelectasis and/or infiltrate right base. Assessment and Plan Assessment and Plan IMPRESSION Cervical spine abscess Known IVDU RECOMMENDATION Baseline ESR and CRP Agree with empiric Abx: Vanco and Cefepime Follow C/S Neurosurgery evaluating patient - patient has refused surgery I spoke with him at length, and he is not agreeing to have surgery - will inform neurosurgery Monitor progress I will follow along with you Thank you for this consultation Discussed Condition With Discussed with RN Explained plan to the patient at length, and he is now going to have surgery Armida Jay MD October 18, 2017 15:32
[2017-10-18 16:00] VITALS: BP 131/82; PULSE 81; RESP 17; TEMP 98; O2SAT 96
[2017-10-18] MEDS: VANCOMYCIN INJ 1,250 MG in SODIUM CHLOR 0.9% 250 ML INJ 250 ML IV SCH (16:04)
[2017-10-18] MEDS ORDERED: ACETAMINOPHEN 1000 MG/100 ML 100 ML IV ONE (18:09)
[2017-10-18] MEDS ORDERED: KETAMINE HCL 50 MG/5 ML SYRINGE ONE ×2 (18:09→18:10)
[2017-10-18] MEDS ORDERED: SUFentanil INJ 250 MCG/5 ML AMP ONE (18:09)
[2017-10-18] MEDS ORDERED: LIDOCAINE 1%/EPINEPHrine 1:100,000 SOLN 20 ML VIAL ONE (18:16)
[2017-10-18] MEDS ORDERED: THROMBIN (TOPICAL) 5,000 UNIT VIAL ONE (18:17)
[2017-10-18] MEDS ORDERED: GELFOAM SIZE 100 ONE (18:17)
[2017-10-18] MEDS ORDERED: GENTAMICIN SULFATE 80 MG/2 ML VIAL ONE (18:17)
[2017-10-18] MEDS ORDERED: DO NOT ADM ANY ANTICOAGULANT DRUGS PRN (19:30)
[2017-10-18] MEDS ORDERED: METOPROLOL TARTRATE 25 MG TAB PO PRN (20:15)
[2017-10-18] MEDS ORDERED: POVIDONE IODINE 5% (ANTISEPSIS KIT) 4 APPLICATIONS EACH NARE PRN (20:15)
[2017-10-18] MEDS ORDERED: SODIUM CHLORID 0.9% 500 ML IV PRN (20:15)
[2017-10-18] MEDS ORDERED: CHLORHEXIDINE GLUCONATE 2 % 1 PACK (2 CLOTHS) TOPICAL PRN (20:15)
[2017-10-18] MEDS ORDERED: LACTATED RINGER'S 1000 ML IV PRN (20:15)
[2017-10-18] MEDS ORDERED: CEFEPIME INJ 1,000 MG in SODIUM CHLORIDE 0.9% INJ 100 ML IV SCH (21:00)
[2017-10-18] MEDS ORDERED: CEFEPIME INJ 2,000 MG in SODIUM CHLORIDE 0.9% INJ 100 ML IV SCH (23:00)
[2017-10-18] MEDS ORDERED: DEXMEDETOMIDINE HCL 200 MCG/2 ML VIAL ONE (23:22)
[2017-10-18] MEDS ORDERED: PROPOFOL 500 MG/50 ML ONE (23:33)
[2017-10-19] VITALS (10 sets, daily range): BP systolic 123–140; BP diastolic 69–83; PULSE 71–95; RESP 16–21; TEMP 97.6–99.4; O2SAT 95–100
--- NOTE | 2017-10-19 02:20 | PD.OP ---
Operative Report Date of Surgery: October 19, 2017 Preoperative Diagnosis: (1) Cervical discitis (2) Epidural abscess 1. C5-6 discitis 2. Cervical epidural abscess Postoperative Diagnosis: (1) Cervical discitis (2) Epidural abscess 1. C5-6 discitis 2. Cervical epidural abscess Procedure: 1. C5-6 anterior cervical discectomy, evacuation of epidural abscess and granulation tissue. 2. C5-6 anterior cervical interbody fusion, composite allograft bone 3. C5-6 anterior cervical instrumentation Anesthesia: General Surgeon: Rogelio Baum Explosives Operator(s): Reinier Salmon Operation and Findings: Findings: Very soft severely degenerative C5-6 disc. Focal area of C5-6 abscess in the epidural space accompanied by significant granulation tissue. Procedure in detail: The patient was brought into the operating room and positioned in supine position on the 3080 table with the head and neck in neutral position. Rondon catheter was placed. Lines were established by Anesthesia. Gen. endotracheal anesthesia was induced without difficulty, taking care not to significantly flex or extend the patient's neck during intubation and positioning. Leads for intraoperative neuro monitoring were placed and a baseline study obtained. All extremities were appropriately padded. The neck and upper chest were shaved with clippers and sterilely prepped and draped. Appropriate timeout procedure was performed with all personnel present and in agreement 1% Xylocaine with epinephrine was used for local infiltration over the incision site which was made transversely at the left C5-6 level and carried sharply down through the platysma muscle. The exposure was continued medial to the sternocleidomastoid muscle and carotid artery, and lateral to the trachea and esophagus. The prevertebral fascia was elevated away from the anterior longitudinal ligament with a Kitner sponge. The longus coli muscle on each side was elevated with the Callejas elevator. There was significant hyperemia and edema and inflammation of the prevertebral fascia and bilateral longus coli muscle at the C5-6 level. There is also significant destruction of the anterior longitudinal ligament. The self-retaining retractor was placed with the blades beneath the longus coli muscle on each side. The appropriate levels were confirmed with intraoperative C-arm and preoperative imaging studies. The microscope was brought into place and used for the remainder of the procedure including the closure. The 14 mm distraction pins were used as needed for gentle distraction during the procedure. The procedure was performed at the C5-6 level The anterior osteophyte was resected with the [place] rongeur. The disc and annulus was incised with a 15 blade knife and discectomy performed with pituitary biopsy forceps and straight and angled curettes. The TPS drill with the 5 mm barrel bur was used to decorticate the endplates and removed the majority of the osteophyte along the anterior spinal canal as well as the right and left uncovertebral joint. The thin ligament dissector was used to free up the posterior annulus and ligament from the vertebral body margin. The posterior longitudinal ligament and adjacent structures appeared very edematous. The remainder of the resection of the posterior annulus and ligament as well as the posterior osteophyte and bilateral uncovertebral joint was performed with the 2 and 3 mm thin footplate Kerrison rongeurs. Beneath the annulus and posterior longitudinal ligament at the C5-6 level there is a moderate loculated area of purulent abscess. This material along with the adjacent disc was sent for culture. The posterior vertebral bodies were undercut with the Kerrison rongeur and the TPS drill with the 4 mm nirmal bur as needed to fully decompress the anterior spinal canal. Additional granulation tissue was removed with a curette and the Kerrison rongeur. The appropriate size V G2 bone graft was then placed at each level with a good fit of the graft. The blunt nerve hook was used to probe beneath the bone graft to ensure that there was no impingement on the thecal sac or exiting nerve roots. The appropriate size Precision anterior cervical plate was then chosen and the bone screws were placed with the 14 mm fixed screws at the caudal most level and the 14 mm variable screws at the cephalad level of the decompression. The screws were firmly secured and the locking cams engaged. The entire construct was checked with intraoperative C-arm and felt to be satisfactory. The 10 [place] drain was brought out through a small incision in the left lower neck and secured to the skin with nylon suture and attached to sterile suction. The closure was performed with 3-0 Vicryl running for the platysma and interrupted for the subcutaneous closure, with 4-0 Vicryl running for the subcuticular closure. A dressing of sterile Mastisol, Steri-Strips, and Primapore dressing was placed. The patient was placed into a cervical collar, and taken to recovery room in stable condition. All counts were correct at the end of the case. Estimated blood loss was 100 cc No specimen was sent to pathology. Intraoperative neuro monitoring remained stable during the procedure. Rogeilo Baum MD October 19, 2017 02:20
[2017-10-19] MEDS ORDERED: BENZOCAINE 6 MG/MENTHOL 10 MG LOZENGE BUCCAL PRN (02:30)
--- NOTE | 2017-10-19 02:41 | RADRPT ---
EXAM DATE: 10/19/2017 2:31 AM EDT AGE/SEX: 32 years / Male INDICATIONS: C5-6 Anterior cervical disc fusion. CLINICAL DATA: This is the patient's subsequent encounter. Patient reports that signs and symptoms h ave been present for 2 days and indicates a pain score of Nonresponsive. MEDICAL/SURGICAL HISTORY: Non-responsive. Non-responsive. COMPARISON: [facility] – [place], [place] CERVICAL SPINE W & W/O CONTRAST, 10/18/2017. . FINDINGS: Interim discectomy and fusion procedure with interbody and anterior instrumentation at C5/C6. Alignme nt is normal. A surgical drain is present. CONCLUSION: Interim fusion procedure at C5/C6. No evidence of an acute complication. Electronically signed by: Antony Mathew MD 10/19/2017 2:40 AM EDT
[2017-10-19] MEDS ORDERED: CEFEPIME INJ 2,000 MG in SODIUM CHLORIDE 0.9% INJ 100 ML IV SCH (03:00)
[2017-10-19] MEDS: 1/2 NS + KCL 20 MEQ INJ 1,000 ML IV SCH ×2 (03:02→13:08)
[2017-10-19] MEDS ORDERED: SODIUM CHLORIDE 0.9% INJ 100 ML ONE (03:10)
[2017-10-19] MEDS: VANCOMYCIN INJ 1,250 MG in SODIUM CHLOR 0.9% 250 ML INJ 250 ML IV SCH ×2 (03:47→16:23)
[2017-10-19] MEDS: MORPHINE SULFATE 4 MG/ML INJ IV PUSH PRN ×7 (05:01→23:38)
[2017-10-19 05:42] LABS: AUTOMATED NEUTROPHIL # 4.8 TH/MM3 (1.8-7.7); BASOPHIL % 0.2 % (0.0-2.0); EOSINOPHIL # 0.1 TH/MM3 (0-0.4); EOSINOPHIL % 1.8 % (0.0-4.0); HEMATOCRIT 30.7 % (39.0-51.0); HEMOGLOBIN 10.9 GM/DL (13.0-17.0); LYMPHOCYTE # 2.1 TH/MM3 (1.0-4.8); MEAN CELL VOLUME 84.4 FL (80.0-100.0); MEAN CORPUSCULAR HEMOGLOBIN 29.9 PG (27.0-34.0); MEAN CORPUSCULAR HGB CONC 35.5 % (32.0-36.0); MONO % 8.7 % (0.0-8.0); MONOCYTE # 0.7 TH/MM3 (0-0.9); NEUT % 62.3 % (16.0-70.0); PLATELET COUNT 216 TH/MM3 (150-450); RED BLOOD COUNT 3.64 MIL/MM3 (4.50-5.90); RED CELL DISTRIBUTION WIDTH 12.9 % (11.6-17.2); WHITE BLOOD COUNT 7.7 TH/MM3 (4.0-11.0)
[2017-10-19 06:20] LABS: ALBUMIN 2.5 GM/DL (3.4-5.0); ALKALINE PHOSPHATASE 82 U/L (45-117); ALT (GPT) 30 U/L (12-78); AST (GOT) 23 U/L (15-37); BLOOD UREA NITROGEN 7 MG/DL (7-18); CALCIUM 7.9 MG/DL (8.5-10.1); CHLORIDE 107 MEQ/L (98-107); GLOMERULAR FILTRATION RATE 132 ML/MIN (>89); GLUCOSE,RANDOM 91 MG/DL (74-106); SODIUM (NA) 141 MEQ/L (136-145); TOTAL BILIRUBIN ADULT 0.5 MG/DL (0.2-1.0); TOTAL PROTEIN 6.2 GM/DL (6.4-8.2)
[2017-10-19] MEDS: SODIUM CHLORIDE 0.9% FLUSH 10 ML FLUSH IV FLUSH SCH ×2 (09:00→21:01)
[2017-10-19] MEDS: DOCUSATE SODIUM 50 MG/SENNA 8.6 MG TAB PO SCH ×2 (09:35→21:02)
[2017-10-19] MEDS: SODIUM CHLOR 0.9% 1000 ML INJ 1,000 ML IV SCH (09:43)
[2017-10-19] MEDS: ACETAMINOPHEN/HYDROcodone 325 MG/5 MG TAB PO PRN ×2 (10:49→17:57)
--- NOTE | 2017-10-19 12:11 | HHI.PR ---
Subjective Remarks Patient reports that neck pain continues. Denies any chest pain or shortness of breath. Denies nausea vomiting. Denies diarrhea constipation. Objective Vital Signs Date Time Temp Pulse Resp B/P (MAP) Pulse Ox O2 Delivery O2 Flow Rate FiO2 10/19/17 08:51 98.0 72 18 137/83 (101) 100 10/19/17 04:20 73 10/19/17 04:00 98.3 72 20 118/65 (82) 99 Nasal Cannula 3 10/19/17 04:00 97.6 72 16 123/74 (90) 98 10/19/17 03:45 73 20 114/63 (80) 99 Nasal Cannula 4 10/19/17 03:30 74 8 101/60 (74) 96 Nasal Cannula 4 10/19/17 03:17 77 19 103/60 (74) 94 Nasal Cannula 4 10/19/17 03:00 79 19 110/59 (76) 96 Simple Mask 6 10/19/17 02:45 79 18 96/53 (67) 95 Simple Mask 10 10/19/17 02:30 79 20 93/53 (66) 93 Simple Mask 10 10/19/17 02:27 98.7 80 20 112/59 (76) 93 Simple Mask 10 10/18/17 19:15 78 26 129/70 (89) 96 10/18/17 19:11 98.6 82 26 129/71 (90) 97 10/18/17 19:05 Room Air 10/18/17 16:00 98.0 81 17 131/82 (98) 96 I/O 10/18/17 10/18/17 10/18/17 10/19/17 10/19/17 10/19/17 07:00 15:00 23:00 07:00 15:00 23:00 Intake Total 350 ml 2200 ml Output Total 1050 ml 1020 ml Balance 350 ml -1050 ml 1180 ml Intake Oral 0 ml IV Total 350 ml 800 ml Other 1400 ml Output Urine Total 1050 ml 1000 ml Estimated Blood Loss 20 ml # Voids 4 0 Result Diagram: 10/19/17 0510 10/19/17 0510 Objective Remarks GENERAL: Patient in neck brace. Appears comfortable. Alert. SKIN: Warm and dry. HEAD: Normocephalic. EYES: No scleral icterus. No injection or drainage. NECK: Supple, trachea midline. No JVD. CARDIOVASCULAR: Regular rate and rhythm without murmurs, gallops, or rubs. RESPIRATORY: Breath sounds equal bilaterally. No accessory muscle use. GASTROINTESTINAL: Abdomen soft, non-tender, nondistended. MUSCULOSKELETAL: No cyanosis, or edema. BACK: Nontender without obvious deformity. No CVA tenderness. A/P Assessment and Plan 32 y/o male with with a history IVDA presents to the ED with complaints of back pain for the last 3 days. //Cervical spinal abscess MRI reviewed and shows degenerative disc disease at c5-c6 without definite discitis with a small epidural fluid collection posterior to the C5 and C6 vertebral bodies and small fluid diffusely in the retropharyngeal space. Possible early epidural abscesses. -Cont Vanco and cefepime IV -Consult neurosurgery for possible surgery -NPO, IVF -Pain management with [place] PO and Morphine IV -Consult infectious disease = Continue broad-spectrum antibiotics as per infectious disease. Patient would like pain meds increased. We will do so. Postsurgical management as per surgical service. Appreciate assistance. //IVDA -Counseled, encouraged to quit -Ativan for withdrawal/ agitation DVT prophylaxis: SCDs Discharge Planning Pending cultures. We will need ID and neurosurgery clearance. May need home IV antibiotics Chema Novak MD October 19, 2017 12:11
[2017-10-19] MEDS ORDERED: NALOXONE HCL 0.4 MG/ML AMP IV PUSH PRN (12:15)
[2017-10-19] MEDS: CEFEPIME INJ 2,000 MG in SODIUM CHLORIDE 0.9% INJ 100 ML IV SCH ×2 (12:49→21:01)
--- NOTE | 2017-10-19 12:49 | HHI.IDPN ---
Subjective Subjective Remarks Patient is a 32-year-old male, presented to the hospital complaining of 3 day history of neck pain. Pain gets worse when he moves. He denies any problem with weakness, bowel or urinary problem. He has not had any fever chills or sweats. Denies any respiratory complaints, urinary complain or any nausea or vomiting or diarrhea. Patient has known IV drug use although he states that the last time he used he was 7 months ago. 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 Highest temperature since admission has been 99+. MRI of the cervical spine is showing fluid collection around C5-C6. He also had thoracic and lumbar MRI which were both negative. Infectious disease consultation has been requested to evaluate the patient. Notes reviewed Temps ok Had surgery last night C/O pain in neck BC negative OR C/S pending ESR 46 CRP 9.8 Antibiotics Vancomycin Cefepime Current Medications Medications (Trade) Dose Ordered Sig/Walt Route Start Time Stop Time Status Last Admin Pharmacy Profile Note 0 ml @ 0 mls/hr UNSCH OTHER 10/18/17 02:45 (Ativan Inj) 1 mg Q2H PRN IV PUSH 10/18/17 02:45 (NS Flush) 2 ml UNSCH PRN IV FLUSH 10/18/17 02:45 (NS Flush) 2 ml BID IV FLUSH 10/18/17 09:00 10/18/17 09:00 (Reglan Inj) 5 mg Q6H PRN IV PUSH 10/18/17 02:45 (Tylenol) 650 mg Q6H PRN PO 10/18/17 02:45 ([place] 5-325 Mg) 1 tab Q4H PRN PO 10/18/17 02:45 10/19/17 10:49 (Susanne-Colace) 1 tab BID PO 10/18/17 09:00 10/19/17 09:35 (Milk Of Magnesia Liq) 30 ml Q12H PRN PO 10/18/17 02:45 (Senokot) 17.2 mg Q12H PRN PO 10/18/17 02:45 (Dulcolax Supp) 10 mg DAILY PRN RECTAL 10/18/17 02:45 (Lactulose Liq) 30 ml DAILY PRN PO 10/18/17 02:45 (Morphine Inj) 2 mg Q3H PRN IV PUSH 10/18/17 07:30 10/19/17 09:34 Vancomycin HCl 1250 mg/Sodium Chloride 262.5 ml @ 250 mls/hr Q12H IV 10/18/17 16:00 10/19/17 03:47 Lactated Ringer's 1,000 ml @ 30 mls/hr Q24H PRN IV 10/18/17 20:15 10/21/17 20:14 Sodium Chloride 500 ml @ 30 mls/hr [id number] PRN IV 10/18/17 20:15 10/21/17 20:14 (Lopressor) 25 mg [employer] PRN PO 10/18/17 20:15 10/21/17 20:14 (Betadine 5% Antisepsis Kit) 1 applic [employer] PRN EACH NARE 10/18/17 20:15 10/21/17 20:14 (Chlorhexidine 2% Cloth) 3 pack [employer] PRN TOPICAL 10/18/17 20:15 10/21/17 20:14 Potassium Chloride/Sodium Chloride 1,000 ml @ 100 mls/hr Q10H IV 10/19/17 02:20 10/19/17 03:02 (Chloraseptic [place]na) 1 lozenge UNSCH PRN BUCCAL 10/19/17 02:30 ([facility] [place] ALL NURSING DEPARTME... UNSCH PRN .XX 10/18/17 19:30 10/19/17 19:29 Cefepime HCl 2000 mg/Sodium Chloride 100 ml @ 200 mls/hr Q8H IV 10/19/17 12:00 (Morphine Inj) 4 mg Q3H PRN IV PUSH 10/19/17 12:15 (Narcan Inj) 0.4 mg UNSCH PRN IV PUSH 10/19/17 12:15 Lines IV no evidence of infection Past Medical History L ankle OR Lumbar spine fusion Allergies: Coded Allergies: No Known Allergies (Unverified , 10/17/17) Objective . Vital Signs Date Time Temp Pulse Resp B/P (MAP) Pulse Ox O2 Delivery O2 Flow Rate FiO2 10/19/17 08:51 98.0 72 18 137/83 (101) 100 10/19/17 04:20 73 10/19/17 04:00 98.3 72 20 118/65 (82) 99 Nasal Cannula 3 10/19/17 04:00 97.6 72 16 123/74 (90) 98 10/19/17 03:45 73 20 114/63 (80) 99 Nasal Cannula 4 10/19/17 03:30 74 8 101/60 (74) 96 Nasal Cannula 4 10/19/17 03:17 77 19 103/60 (74) 94 Nasal Cannula 4 10/19/17 03:00 79 19 110/59 (76) 96 Simple Mask 6 10/19/17 02:45 79 18 96/53 (67) 95 Simple Mask 10 10/19/17 02:30 79 20 93/53 (66) 93 Simple Mask 10 10/19/17 02:27 98.7 80 20 112/59 (76) 93 Simple Mask 10 10/18/17 19:15 78 26 129/70 (89) 96 10/18/17 19:11 98.6 82 26 129/71 (90) 97 10/18/17 19:05 Room Air 10/18/17 16:00 98.0 81 17 131/82 (98) 96 . Laboratory Tests Test 10/17/17 23:45 10/18/17 17:24 10/19/17 05:10 White Blood Count 8.6 TH/MM3 7.7 TH/MM3 Red Blood Count 4.03 MIL/MM3 3.64 MIL/MM3 Hemoglobin 12.0 GM/DL 10.9 GM/DL Hematocrit 34.0 % 30.7 % Mean Corpuscular Volume 84.5 FL 84.4 FL Mean Corpuscular Hemoglobin 29.9 PG 29.9 PG Mean Corpuscular Hemoglobin Concent 35.4 % 35.5 % Red Cell Distribution Width 13.1 % 12.9 % Platelet Count 233 TH/MM3 216 TH/MM3 Mean Platelet Volume 7.1 FL 7.0 FL Neutrophils (%) (Auto) 61.7 % 62.3 % Lymphocytes (%) (Auto) 25.0 % 27.0 % Monocytes (%) (Auto) 11.9 % 8.7 % Eosinophils (%) (Auto) 1.1 % 1.8 % Basophils (%) (Auto) 0.3 % 0.2 % Neutrophils # (Auto) 5.3 TH/MM3 4.8 TH/MM3 Lymphocytes # (Auto) 2.1 TH/MM3 2.1 TH/MM3 Monocytes # (Auto) 1.0 TH/MM3 0.7 TH/MM3 Eosinophils # (Auto) 0.1 TH/MM3 0.1 TH/MM3 Basophils # (Auto) 0.0 TH/MM3 0.0 TH/MM3 CBC Comment DIFF FINAL DIFF FINAL Differential Comment Erythrocyte Sedimentation Rate 46 mm/hr Laboratory Tests Test 10/17/17 23:45 10/18/17 17:24 10/19/17 05:10 Blood Urea Nitrogen 11 MG/DL 7 MG/DL Creatinine 0.88 MG/DL 0.70 MG/DL Random Glucose 98 MG/DL 91 MG/DL Total Protein 7.7 GM/DL 6.2 GM/DL Albumin 3.4 GM/DL 2.5 GM/DL Calcium Level 8.7 MG/DL 7.9 MG/DL Alkaline Phosphatase 88 U/L 82 U/L Aspartate Amino Transf (AST/SGOT) 18 U/L 23 U/L Alanine Aminotransferase (ALT/SGPT) 21 U/L 30 U/L Total Bilirubin 0.5 MG/DL 0.5 MG/DL Sodium Level 137 MEQ/L 141 MEQ/L Potassium Level 3.7 MEQ/L 3.8 MEQ/L Chloride Level 100 MEQ/L 107 MEQ/L Carbon Dioxide Level 27.9 MEQ/L 28.0 MEQ/L Anion Gap 9 MEQ/L 6 MEQ/L Estimat Glomerular Filtration Rate 102 ML/MIN 132 ML/MIN Lactic Acid Level 1.6 mmol/L C-Reactive Protein 9.80 MG/DL Microbiology Date/Time Source Procedure Growth Status 10/17/17 23:45 Blood Peripheral Aerobic Blood Culture - Preliminary NO GROWTH IN 2 DAYS Resulted 10/17/17 23:45 Blood Peripheral Anaerobic Blood Culture - Preliminary NO GROWTH IN 2 DAYS Resulted 10/17/17 23:40 Blood Peripheral Aerobic Blood Culture - Preliminary NO GROWTH IN 2 DAYS Resulted 10/17/17 23:40 Blood Peripheral Anaerobic Blood Culture - Preliminary NO GROWTH IN 2 DAYS Resulted 10/19/17 01:45 Abscess Neck Fungal Smear Pending Received 10/19/17 01:45 Abscess Neck Fungal Culture Pending Received 10/19/17 01:45 Abscess Neck Gram Stain Pending Received 10/19/17 01:45 Abscess Neck Wound Culture Pending Received 10/19/17 01:45 Abscess Neck Acid Fast Stain Pending Received 10/19/17 01:45 Abscess Neck Mycobacterial Culture Pending Received Imaging Last 72 hours Impressions Cervical Spine X-Ray 10/19/17 Signed Impressions: CONCLUSION: Interim fusion procedure at C5/C6. No evidence of an acute complication. Thoracic Spine MRI 10/18/17 Signed Impressions: CONCLUSION: 1. MRI of the thoracic spine within normal limits. Lumbar Spine MRI 10/18/17 Signed Impressions: CONCLUSION: 1. Surgical, remote posttraumatic and multilevel degenerative changes seen of the lumbar spine. Mild bilateral foraminal encroachment at L5/S1. 2. No acute fracture or subluxation. No high-grade stenosis. No acute lumbar s pine inflammatory changes. Cervical Spine MRI 10/18/17 Signed Impressions: CONCLUSION: 1. Degenerative disc disease at C5/C6 without definite discitis but there does appear to be some associated inflammatory change, including a small epidural f luid collection posterior to the C5 and C6 vertebral bodies and small fluid dif fusely in the retropharyngeal space. Early retropharyngeal and/or epidural absc esses are in the differential. Mild marrow edema of the C5 and C6 vertebral bod ies appears reactive. No definite osteomyelitis at this time. Mild spinal and b ilateral foraminal stenosis at C5/C6. 2. Mild and typical-appearing degenerative disc changes at other levels withou t significant foraminal or spinal stenosis. Chest X-Ray 10/17/178 Signed Impressions: CONCLUSION: Trace atelectasis and/or infiltrate right base. Physical Exam GENERAL: awake and alert, not in respiratory distress. SKIN: Warm and dry. Has scattered small eschars face, UE and LE. No ecchymoses and no evidence of embolic lesions. HEAD: Atraumatic. Normocephalic. No temporal wasting, or tenderness. EYES: [place] conjunctiva. No petechia or hemorrhage. Pupils equal, round and reactive to light. Extraocular movements full and intact. No scleral icterus. No injection or drainage. EARS, NOSE AND THROAT: Nose without bleeding or purulent nasal discharge. No sinus tenderness. Mucous membranes pink and moist. No oral lesions noted. NECK: Trachea midline. Wearing a cervical collar. Dry dressing, has CLARENCE drain in place CARDIOVASCULAR: Regular rate and rhythm. No murmurs, rubs or gallops heard RESPIRATORY: Clear to auscultation. Breath sounds equal bilaterally. No rales , wheezing or rhonchi ABDOMEN: Soft, non-tender, nondistended. Bowel sounds present and normoactive. No guarding. No rebound. No organomegaly. EXTREMITIES: No clubbing, cyanosis, or edema.No joint effusion, has good ROM. No calf tenderness. Well perfused and warm. NEUROLOGICAL: Awake and alert. Cranial nerves grossly intact. Motor grossly within normal limits. PSYCHIATRIC: Normal affect, calm and cooperative. LINE: No evidence of infection Assessment & Plan Remarks IMPRESSION Cervical spine abscess Known IVDU RECOMMENDATION Agree with empiric Abx: Vanco and Cefepime Follow C/S Monitor progress Will need long course of IV Abx Pain control - difficult due to his Hx IVDU D/W Armida Salomon MD October 19, 2017 12:49
--- NOTE | 2017-10-19 17:32 | HHI.NSPN ---
(Romero Mancini) History Chief Complaint: Neck pain ([place]) Interval History 10/18: The patient is a 32-year-old male who states that this past Friday, he developed progressive severe neck pain. He felt a mild fever yesterday. No other chills or sweats. No complaint of headache, blurred vision, diplopia, dizziness, vertigo, speech difficulty, confusion, pain weakness or numbness in the extremities. He does give a history of IV drug abuse, indicating last use approximately 7 months ago. 10/19: The patient went late yesterday evening for a C5-6 anterior cervical discectomy with evacuation of an epidural abscess and granulation tissue followed by an anterior cervical interbody fusion and cervical instrumentation which was completed early this morning. Post-operatively he was transferred back to the med/surg floor for further care and monitoring. When seen this afternoon the patient complains of pain to the neck and says his pain medication is helping. He states that his throat hurts and he has difficulty swallowing. He remains on a clear diet. He denies any pain, numbness or tingling to the extremities. Upon examination he is tender to the midline cervical spine and anterior neck surgical incision. There are no sensorimotor deficits noted. He does interact readily but is fixated on his pain. (Romero Mancini) Exam Results 10/17/17 10/17/17 10/18/17 10/18/17 10/19/17 10/19/17 05:59 17:59 05:59 17:59 05:59 17:59 Intake Total 350 ml 2200 ml 1000 ml Output Total 2070 ml 1800 ml Balance 350 ml 130 ml -800 ml Intake Oral 0 ml IV Total 350 ml 800 ml 1000 ml Other 1400 ml Output Urine Total 2050 ml 1800 ml Estimated Blood Loss 20 ml # Voids 4 0 # Bowel Movements 0 Vital Signs Date Time Temp Pulse Resp B/P (MAP) Pulse Ox O2 Delivery O2 Flow Rate FiO2 10/19/17 15:47 98.9 95 20 140/76 (97) 96 10/19/17 12:00 98.3 73 21 140/81 (100) 97 10/19/17 08:51 98.0 72 18 137/83 (101) 100 10/19/17 04:20 73 10/19/17 04:00 98.3 72 20 118/65 (82) 99 Nasal Cannula 3 10/19/17 04:00 97.6 72 16 123/74 (90) 98 10/19/17 03:45 73 20 114/63 (80) 99 Nasal Cannula 4 10/19/17 03:30 74 8 101/60 (74) 96 Nasal Cannula 4 10/19/17 03:17 77 19 103/60 (74) 94 Nasal Cannula 4 10/19/17 03:00 79 19 110/59 (76) 96 Simple Mask 6 10/19/17 02:45 79 18 96/53 (67) 95 Simple Mask 10 10/19/17 02:30 79 20 93/53 (66) 93 Simple Mask 10 10/19/17 02:27 98.7 80 20 112/59 (76) 93 Simple Mask 10 10/18/17 19:15 78 26 129/70 (89) 96 10/18/17 19:11 98.6 82 26 129/71 (90) 97 10/18/17 19:05 Room Air 10/18/17 16:00 98.0 81 17 131/82 (98) 96 10/18/17 12:00 97.6 73 17 135/81 (99) 98 10/18/17 11:52 10/18/17 08:55 95 18 113/59 (77) 96 Room Air 10/18/17 07:32 97 Nasal Cannula 2.00 10/18/17 07:32 97 Nasal Cannula 2.00 10/18/17 07:31 82 18 127/79 (95) 97 Nasal Cannula 2.00 10/18/17 04:05 80 16 121/72 (88) 98 Room Air 10/17/17 22:24 99.3 127 20 112/62 (79) 97 (Romero Mancini) Physical Examination GENERAL: The patient is awake & alert sitting up in bed watching TV. His affect is somewhat flat but he does interact. He appears mildly uncomfortable but is not in distress. SKIN: Multiple erythematous lesions throughout the upper and lower extremities. HEENT: Normocephalic, atraumatic. NECK: [place] cervical collar in place. Midline cervical spine TTP at the C5 to C6 levels. Anterior neck surgical incision TTP w/intact dressing, CLARENCE drain to bulb suction w/serosanguinous drainage. No JVD. Trachea midline. MUSCULOSKELETAL: [place] spontaneously & purposefully w/o difficulty. 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 Deformity at the PIP of the left hand 2nd digit. NEUROLOGICAL: AAOx3. Speech essentially clear but slightly gravely, appropriate. Follows simple commands w/o difficulty. Sensation intact to light touch to all extremities. Motor strength is 5/5 to all major flexion & extension muscle groups, to include wrist flexors & extensors and hand intrinsics & extrinsics. (Romero Mancini) Lab, Micro, Other Results Recent Impressions Cervical Spine X-Ray 10/19/17 0000 Signed Impressions: CONCLUSION: Interim fusion procedure at C5/C6. No evidence of an acute complication. Thoracic Spine MRI 10/18/17 0000 Signed Impressions: CONCLUSION: 1. MRI of the thoracic spine within normal limits. Lumbar Spine MRI 10/18/17 0000 Signed Impressions: CONCLUSION: 1. Surgical, remote posttraumatic and multilevel degenerative changes seen of the lumbar spine. Mild bilateral foraminal encroachment at L5/S1. 2. No acute fracture or subluxation. No high-grade stenosis. No acute lumbar s pine inflammatory changes. Cervical Spine MRI 10/18/17 0000 Signed Impressions: CONCLUSION: 1. Degenerative disc disease at C5/C6 without definite discitis but there does appear to be some associated inflammatory change, including a small epidural f luid collection posterior to the C5 and C6 vertebral bodies and small fluid dif fusely in the retropharyngeal space. Early retropharyngeal and/or epidural absc esses are in the differential. Mild marrow edema of the C5 and C6 vertebral bod ies appears reactive. No definite osteomyelitis at this time. Mild spinal and b ilateral foraminal stenosis at C5/C6. 2. Mild and typical-appearing degenerative disc changes at other levels withou t significant foraminal or spinal stenosis. Chest X-Ray 10/17/17 2308 Signed Impressions: CONCLUSION: Trace atelectasis and/or infiltrate right base. Laboratory Tests Test 10/17/17 23:45 5/26/18 00:10 10/18/17 17:24 10/19/17 05:10 White Blood Count 8.6 TH/MM3 7.7 TH/MM3 Red Blood Count 4.03 MIL/MM3 3.64 MIL/MM3 Hemoglobin 12.0 GM/DL 10.9 GM/DL Hematocrit 34.0 % 30.7 % Mean Corpuscular Volume 84.5 FL 84.4 FL Mean Corpuscular Hemoglobin 29.9 PG 29.9 PG Mean Corpuscular Hemoglobin Concent 35.4 % 35.5 % Red Cell Distribution Width 13.1 % 12.9 % Platelet Count 233 TH/MM3 216 TH/MM3 Mean Platelet Volume 7.1 FL 7.0 FL Neutrophils (%) (Auto) 61.7 % 62.3 % Lymphocytes (%) (Auto) 25.0 % 27.0 % Monocytes (%) (Auto) 11.9 % 8.7 % Eosinophils (%) (Auto) 1.1 % 1.8 % Basophils (%) (Auto) 0.3 % 0.2 % Neutrophils # (Auto) 5.3 TH/MM3 4.8 TH/MM3 Lymphocytes # (Auto) 2.1 TH/MM3 2.1 TH/MM3 Monocytes # (Auto) 1.0 TH/MM3 0.7 TH/MM3 Eosinophils # (Auto) 0.1 TH/MM3 0.1 TH/MM3 Basophils # (Auto) 0.0 TH/MM3 0.0 TH/MM3 CBC Comment DIFF FINAL DIFF FINAL Differential Comment Blood Urea Nitrogen 11 MG/DL 7 MG/DL Creatinine 0.88 MG/DL 0.70 MG/DL Random Glucose 98 MG/DL 91 MG/DL Total Protein 7.7 GM/DL 6.2 GM/DL Albumin 3.4 GM/DL 2.5 GM/DL Calcium Level 8.7 MG/DL 7.9 MG/DL Alkaline Phosphatase 88 U/L 82 U/L Aspartate Amino Transf (AST/SGOT) 18 U/L 23 U/L Alanine Aminotransferase (ALT/SGPT) 21 U/L 30 U/L Total Bilirubin 0.5 MG/DL 0.5 MG/DL Sodium Level 137 MEQ/L 141 MEQ/L Potassium Level 3.7 MEQ/L 3.8 MEQ/L Chloride Level 100 MEQ/L 107 MEQ/L Carbon Dioxide Level 27.9 MEQ/L 28.0 MEQ/L Anion Gap 9 MEQ/L 6 MEQ/L Estimat Glomerular Filtration Rate 102 ML/MIN 132 ML/MIN Lactic Acid Level 1.6 mmol/L Urine Color YELLOW Urine Turbidity CLEAR Urine pH 5.5 Urine Specific [place] 1.006 Urine Protein NEG mg/dL Urine Glucose (UA) NEG mg/dL Urine Ketones NEG mg/dL Urine Occult Blood TRACE Urine Nitrite NEG Urine Bilirubin NEG Urine Urobilinogen LESS THAN 2.0 MG/DL Urine Leukocyte Esterase NEG Urine RBC 1 /hpf Urine WBC 1 /hpf Microscopic Urinalysis Comment CATH-CULT NOT IND Erythrocyte Sedimentation Rate 46 mm/hr C-Reactive Protein 9.80 MG/DL Vancomycin Level Trough 39.8 MCG/ML (Romero Mancini) Medical Decision Making Impression and Plan Impression: Cervical epidural fluid collection consistent with abscess Postoperative Diagnosis: (1) Cervical discitis (2) Epidural abscess 1. C5-6 discitis 2. Cervical epidural abscess Patient doing fairly well post-operatively but pain not well controlled. No sensorimotor deficits noted. Reports difficulty swallowing. No CLARENCE drain output recorded since surgery as of shift change this morning. Reviewed labs for today. Drop in haemoglobin level. POD #0 () s/p: 1. C5-6 anterior cervical discectomy, evacuation of epidural abscess and granulation tissue. 2. C5-6 anterior cervical interbody fusion, composite allograft bone 3. C5-6 anterior cervical instrumentation Plan: Primary management per Hospitalist. Antibiotic management per Infectious Disease. Neuro checks q4h. Ritchie J cervical collar at all times. Mobilise patient w/assistance. Physical Therapy eval & tx. Monitor CLARENCE drain output. Hold pharmacologic DVT prophylaxis. Mechanical DVT prophylaxis. Cepacol lozenges PRN sore throat. Bedside swallow eval. (Romero Mancini) Attending Statement The exam, history, and the medical decision-making described in the above note were completed with the assistance of the mid-level provider. I reviewed and agree with the findings presented. I attest that I had a [id number] encounter with the patient on the same day, and personally performed and documented my assessment and findings in the medical record. Patient postop examination stable. Intact sensory motor function all extremities Drain in place Stable postop (Rogelio Baum MD) Romero Mancini October 19, 2017 17:32 Rogelio Baum MD Oct 24, 2017 22:27
[2017-10-19] MEDS ORDERED: BENZOCAINE-MENTHOL (SUGAR FREE) 15 MG-3.6 MG LOZENGE BUCCAL PRN (18:00)
[2017-10-20] MEDS: MORPHINE SULFATE 4 MG/ML INJ IV PUSH PRN ×11 (02:18→22:04)
[2017-10-20] MEDS: 1/2 NS + KCL 20 MEQ INJ 1,000 ML IV SCH ×3 (02:23→20:19)
[2017-10-20] MEDS: VANCOMYCIN INJ 1,250 MG in SODIUM CHLOR 0.9% 250 ML INJ 250 ML IV SCH ×2 (02:36→16:05)
[2017-10-20 03:58] VITALS: PULSE 74
[2017-10-20 04:16] VITALS: BP 138/73; PULSE 73; RESP 18; TEMP 98.8; O2SAT 95
[2017-10-20] MEDS: CEFEPIME INJ 2,000 MG in SODIUM CHLORIDE 0.9% INJ 100 ML IV SCH ×3 (04:23→20:19)
[2017-10-20 08:01] VITALS: BP 144/74; PULSE 71; RESP 17; TEMP 98.1; O2SAT 95
[2017-10-20] MEDS: SODIUM CHLORIDE 0.9% FLUSH 10 ML FLUSH IV FLUSH SCH ×2 (08:04→20:19)
[2017-10-20] MEDS: DOCUSATE SODIUM 50 MG/SENNA 8.6 MG TAB PO SCH ×2 (09:00→20:20)
[2017-10-20 12:01] VITALS: BP 139/75; PULSE 78; RESP 17; TEMP 98.2; O2SAT 96
--- NOTE | 2017-10-20 13:52 | HHI.PR ---
Subjective Remarks Patient says he is feeling all right. Reports pain is controlled. Denies any chest pain or shortness of breath. Denies nausea or vomiting. Is asking for drain to be removed so he can swallow. Objective Vital Signs Date Time Temp Pulse Resp B/P (MAP) Pulse Ox O2 Delivery O2 Flow Rate FiO2 10/20/17 12:01 98.2 78 17 139/75 (96) 96 10/20/17 08:01 98.1 71 17 144/74 (97) 95 10/20/17 04:16 98.8 73 18 138/73 (94) 95 10/20/17 03:58 74 10/19/17 23:50 83 10/19/17 23:43 99.4 89 20 134/69 (90) 95 10/19/17 20:14 79 10/19/17 16:00 75 10/19/17 15:47 98.9 95 20 140/76 (97) 96 I/O 10/19/17 10/19/17 10/19/17 10/20/17 10/20/17 10/20/17 07:00 15:00 23:00 07:00 15:00 23:00 Intake Total 2200 ml 1000 ml 2 ml Output Total 1020 ml 1000 ml 1100 ml 2100 ml 10 ml Balance 1180 ml 0 ml -1098 ml -2100 ml -10 ml Intake Oral 0 ml IV Total 800 ml 1000 ml 2 ml Other 1400 ml Output Urine Total 1000 ml 1000 ml 1100 ml 2100 ml Drainage Total 10 ml Estimated Blood Loss 20 ml # Voids 0 # Bowel Movements 0 Result Diagram: 10/19/17 0510 10/19/17 0510 Objective Remarks GENERAL: Patient in neck brace. Cervical drain with serous fluid. Appears comfortable. Alert. SKIN: Warm and dry. HEAD: Normocephalic. EYES: No scleral icterus. No injection or drainage. NECK: Supple, trachea midline. No JVD. CARDIOVASCULAR: Regular rate and rhythm without murmurs, gallops, or rubs. RESPIRATORY: Breath sounds equal bilaterally. No accessory muscle use. GASTROINTESTINAL: Abdomen soft, non-tender, nondistended. MUSCULOSKELETAL: No cyanosis, or edema. BACK: Nontender without obvious deformity. No CVA tenderness. A/P Assessment and Plan 32 y/o male with with a history IVDA presents to the ED with complaints of back pain for the last 3 days. //Cervical spinal abscess MRI reviewed and shows degenerative disc disease at c5-c6 without definite discitis with a small epidural fluid collection posterior to the C5 and C6 vertebral bodies and small fluid diffusely in the retropharyngeal space. Possible early epidural abscesses. -Cont Vanco and cefepime IV -Consult neurosurgery for possible surgery -NPO, IVF -Pain management with [place] PO and Morphine IV -Consult infectious disease = Continue broad-spectrum antibiotics as per infectious disease. Postsurgical management as per surgical service. Appreciate assistance. //IVDA -Counseled, encouraged to quit -Ativan for withdrawal/ agitation DVT prophylaxis: SCDs Discharge Planning Culture still pending. We will need ID and neurosurgery clearance. Will need long course of IV antibiotics. Chema Novak MD October 20, 2017 13:52
[2017-10-20 16:01] VITALS: BP 145/81; PULSE 71; RESP 16; TEMP 98.5; O2SAT 96
[2017-10-20 20:00] VITALS: BP 139/74; PULSE 73; PULSE 78; RESP 20; TEMP 99.4; O2SAT 96
[2017-10-20] MEDS ORDERED: LORazepam 1 MG TAB PO ONE (21:15)
[2017-10-21] VITALS: BP 140/83; PULSE 70; PULSE 78; RESP 18; TEMP 98.8; O2SAT 96
[2017-10-21] MEDS: MORPHINE SULFATE 4 MG/ML INJ IV PUSH PRN ×10 (00:32→22:20)
[2017-10-21] MEDS: VANCOMYCIN INJ 1,250 MG in SODIUM CHLOR 0.9% 250 ML INJ 250 ML IV SCH ×3 (03:36→20:50)
[2017-10-21] MEDS ORDERED: PHARMACY ORDERED LAB ONE (03:45)
[2017-10-21 04:00] VITALS: BP 144/77; PULSE 75; PULSE 77; RESP 20; TEMP 98.4; O2SAT 95
[2017-10-21] MEDS: CEFEPIME INJ 2,000 MG in SODIUM CHLORIDE 0.9% INJ 100 ML IV SCH ×3 (05:19→20:41)
[2017-10-21] MEDS: 1/2 NS + KCL 20 MEQ INJ 1,000 ML IV SCH ×2 (05:20→16:40)
[2017-10-21 08:00] VITALS: BP 134/72; PULSE 75; RESP 16; TEMP 98.3; O2SAT 94
[2017-10-21] MEDS: DOCUSATE SODIUM 50 MG/SENNA 8.6 MG TAB PO SCH ×2 (08:47→20:50)
[2017-10-21] MEDS: SODIUM CHLORIDE 0.9% FLUSH 10 ML FLUSH IV FLUSH SCH ×2 (08:53→20:49)
--- NOTE | 2017-10-21 09:54 | HHI.IDPN ---
Subjective Subjective Remarks Patient is a 32-year-old male, presented to the hospital complaining of 3 day history of neck pain. Pain gets worse when he moves. He denies any problem with weakness, bowel or urinary problem. He has not had any fever chills or sweats. Denies any respiratory complaints, urinary complain or any nausea or vomiting or diarrhea. Patient has known IV drug use although he states that the last time he used he was 7 months ago. 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 Highest temperature since admission has been 99+. MRI of the cervical spine is showing fluid collection around C5-C6. He also had thoracic and lumbar MRI which were both negative. Infectious disease consultation has been requested to evaluate the patient. Notes reviewed Temps ok Not a lot of output from the drain Pain better C/S negative after 24 hours BC negative ESR 46 CRP 9.8 Vanco level subtherapeutic Antibiotics Vancomycin Cefepime Current Medications Medications (Trade) Dose Ordered Sig/Walt Route Start Time Stop Time Status Last Admin Pharmacy Profile Note 0 ml @ 0 mls/hr UNSCH OTHER 10/18/17 02:45 (Ativan Inj) 1 mg Q2H PRN IV PUSH 10/18/17 02:45 (NS Flush) 2 ml UNSCH PRN IV FLUSH 10/18/17 02:45 (NS Flush) 2 ml BID IV FLUSH 10/18/17 09:00 10/21/17 08:53 (Reglan Inj) 5 mg Q6H PRN IV PUSH 10/18/17 02:45 (Tylenol) 650 mg Q6H PRN PO 10/18/17 02:45 (Inlet 5-325 Mg) 1 tab Q4H PRN PO 10/18/17 02:45 10/19/17 17:57 (Susanne-Colace) 1 tab BID PO 10/18/17 09:00 10/19/17 21:02 (Milk Of Magnesia Liq) 30 ml Q12H PRN PO 10/18/17 02:45 (Senokot) 17.2 mg Q12H PRN PO 10/18/17 02:45 (Dulcolax Supp) 10 mg DAILY PRN RECTAL 10/18/17 02:45 (Lactulose Liq) 30 ml DAILY PRN PO 10/18/17 02:45 (Morphine Inj) 2 mg Q3H PRN IV PUSH 10/18/17 07:30 10/21/17 08:50 Lactated Ringer's 1,000 ml @ 30 mls/hr Q24H PRN IV 10/18/17 20:15 10/21/17 20:14 Sodium Chloride 500 ml @ 30 mls/hr [id number] PRN IV 10/18/17 20:15 10/21/17 20:14 (Lopressor) 25 mg BIT SANDER PRN PO 10/18/17 20:15 10/21/17 20:14 (Betadine 5% Antisepsis Kit) 1 applic BIT SANDER PRN EACH NARE 10/18/17 20:15 10/21/17 20:14 (Chlorhexidine 2% Cloth) 3 pack BIT SANDER PRN TOPICAL 10/18/17 20:15 10/21/17 20:14 Potassium Chloride/Sodium Chloride 1,000 ml @ 100 mls/hr Q10H IV 10/19/17 02:20 10/21/17 05:20 (Chloraseptic [place]) 1 lozenge UNSCH PRN BUCCAL 10/19/17 02:30 10/20/17 09:11 Cefepime HCl 2000 mg/Sodium Chloride 100 ml @ 200 mls/hr Q8H IV 10/19/17 12:00 10/21/17 05:19 (Morphine Inj) 4 mg Q3H PRN IV PUSH 10/19/17 12:15 10/21/17 06:22 (Narcan Inj) 0.4 mg UNSCH PRN IV PUSH 10/19/17 12:15 (Cepacol Extra [place] (Sugar Free)) 1 lozenge Q2HR PRN BUCCAL 10/19/17 18:00 Vancomycin HCl 1250 mg/Sodium Chloride 262.5 ml @ 250 mls/hr Q8H IV 10/21/17 12:00 ([facility] Ordered Lab Info) SPECIFIC LAB TO BE ... ONCE ONCE .XX 10/22/17 03:45 10/22/17 03:46 Lines IV no evidence of infection Past Medical History L ankle OR Lumbar spine fusion Allergies: Coded Allergies: No Known Allergies (Unverified , 10/17/17) Objective . Vital Signs Date Time Temp Pulse Resp B/P (MAP) Pulse Ox O2 Delivery O2 Flow Rate FiO2 10/21/17 08:00 98.3 75 16 134/72 (92) 94 10/21/17 04:00 98.4 77 20 144/77 (99) 95 10/21/17 04:00 75 10/21/17 00:00 70 10/21/17 00:00 98.8 78 18 140/83 (102) 96 10/20/17 20:00 99.4 78 20 139/74 (95) 96 10/20/17 20:00 73 10/20/17 16:01 98.5 71 16 145/81 (102) 96 10/20/17 12:01 98.2 78 17 139/75 (96) 96 . Microbiology Date/Time Source Procedure Growth Status 10/19/17 01:45 Abscess Neck Fungal Smear - Final NO FUNGAL ELEMENTS SEEN. Resulted 10/19/17 01:45 Abscess Neck Fungal Culture Pending Resulted 10/19/17 01:45 Abscess Neck Gram Stain - Final Resulted 10/19/17 01:45 Abscess Neck Wound Culture - Preliminary NO GROWTH IN 24 HOURS. Resulted 10/19/17 01:45 Abscess Neck Acid Fast Stain Pending Received 10/19/17 01:45 Abscess Neck Mycobacterial Culture Pending Received Imaging Last 72 hours Impressions Cervical Spine X-Ray 10/19/17 0000 Signed Impressions: CONCLUSION: Interim fusion procedure at C5/C6. No evidence of an acute complication. Thoracic Spine MRI 10/18/17 0000 Signed Impressions: CONCLUSION: 1. MRI of the thoracic spine within normal limits. Lumbar Spine MRI 10/18/17 0000 Signed Impressions: CONCLUSION: 1. Surgical, remote posttraumatic and multilevel degenerative changes seen of the lumbar spine. Mild bilateral foraminal encroachment at L5/S1. 2. No acute fracture or subluxation. No high-grade stenosis. No acute lumbar s pine inflammatory changes. Cervical Spine MRI 10/18/17 0000 Signed Impressions: CONCLUSION: 1. Degenerative disc disease at C5/C6 without definite discitis but there does appear to be some associated inflammatory change, including a small epidural f luid collection posterior to the C5 and C6 vertebral bodies and small fluid dif fusely in the retropharyngeal space. Early retropharyngeal and/or epidural absc esses are in the differential. Mild marrow edema of the C5 and C6 vertebral bod ies appears reactive. No definite osteomyelitis at this time. Mild spinal and b ilateral foraminal stenosis at C5/C6. 2. Mild and typical-appearing degenerative disc changes at other levels withou t significant foraminal or spinal stenosis. Chest X-Ray 10/17/17 4736 Signed Impressions: CONCLUSION: Trace atelectasis and/or infiltrate right base. Physical Exam GENERAL: awake and alert, not in respiratory distress. SKIN: Warm and dry. Has scattered small eschars face, UE and LE. No ecchymoses and no evidence of embolic lesions. HEAD: Atraumatic. Normocephalic. No temporal wasting, or tenderness. EYES: Floris conjunctiva. No petechia or hemorrhage. Pupils equal, round and reactive to light. Extraocular movements full and intact. No scleral icterus. No injection or drainage. EARS, NOSE AND THROAT: Nose without bleeding or purulent nasal discharge. No sinus tenderness. Mucous membranes pink and moist. No oral lesions noted. NECK: Trachea midline. Wearing a cervical collar. Dry dressing, has CLARENCE drain in place CARDIOVASCULAR: Regular rate and rhythm. No murmurs, rubs or gallops heard RESPIRATORY: Clear to auscultation. Breath sounds equal bilaterally. No rales , wheezing or rhonchi ABDOMEN: Soft, non-tender, nondistended. Bowel sounds present and normoactive. No guarding. No rebound. No organomegaly. EXTREMITIES: No clubbing, cyanosis, or edema.No joint effusion, has good ROM. No calf tenderness. Well perfused and warm. NEUROLOGICAL: Awake and alert. Cranial nerves grossly intact. Motor grossly within normal limits. PSYCHIATRIC: Normal affect, calm and cooperative. LINE: No evidence of infection Assessment & Plan Remarks IMPRESSION Cervical spine abscess, C5-6 discitis Known IVDU RECOMMENDATION Continue Vanco and Cefepime Follow C/S and adjust Abx - he was on Abx when he had surgery and could affect results of intraop C/S Monitor progress Will need long course of IV Abx Armida Jay MD October 21, 2017 09:53
--- NOTE | 2017-10-21 11:14 | HHI.PR ---
Subjective Remarks She says he is feeling all right. Denies any chest pain or shortness of breath. Denies any nausea or vomiting. Mother has questions regarding how long patient will need the brace, how long he will need antibiotics. I will defer to consultants. Objective Vital Signs Date Time Temp Pulse Resp B/P (MAP) Pulse Ox O2 Delivery O2 Flow Rate FiO2 10/21/17 08:00 98.3 75 16 134/72 (92) 94 10/21/17 04:00 98.4 77 20 144/77 (99) 95 10/21/17 04:00 75 10/21/17 00:00 70 10/21/17 00:00 98.8 78 18 140/83 (102) 96 10/20/17 20:00 99.4 78 20 139/74 (95) 96 10/20/17 20:00 73 10/20/17 16:01 98.5 71 16 145/81 (102) 96 10/20/17 12:01 98.2 78 17 139/75 (96) 96 I/O 10/20/17 10/20/17 10/20/17 10/21/17 10/21/17 10/21/17 07:00 15:00 23:00 07:00 15:00 23:00 Intake Total 600 ml 360 ml Output Total 2100 ml 10 ml 1750 ml 1525 ml Balance -2100 ml -10 ml -1150 ml -1165 ml Intake Oral 600 ml 360 ml Output Urine Total 2100 ml 1750 ml 1525 ml Drainage Total 10 ml # Voids 4 # Bowel Movements 0 0 Result Diagram: 10/19/17 0510 10/19/17 0510 Objective Remarks GENERAL: Patient in neck brace. Cervical drain with serous fluid. Appears comfortable. Alert. No change on exam. SKIN: Warm and dry. HEAD: Normocephalic. EYES: No scleral icterus. No injection or drainage. NECK: Supple, trachea midline. No JVD. CARDIOVASCULAR: Regular rate and rhythm without murmurs, gallops, or rubs. RESPIRATORY: Breath sounds equal bilaterally. No accessory muscle use. GASTROINTESTINAL: Abdomen soft, non-tender, nondistended. MUSCULOSKELETAL: No cyanosis, or edema. BACK: Nontender without obvious deformity. No CVA tenderness. A/P Assessment and Plan 32 y/o male with with a history IVDA presents to the ED with complaints of back pain for the last 3 days. //Cervical spinal abscess MRI reviewed and shows degenerative disc disease at c5-c6 without definite discitis with a small epidural fluid collection posterior to the C5 and C6 vertebral bodies and small fluid diffusely in the retropharyngeal space. Possible early epidural abscesses. -Cont Vanco and cefepime IV -Consult neurosurgery for possible surgery -NPO, IVF -Pain management with [place] PO and Morphine IV -Consult infectious disease = Continue broad-spectrum antibiotics as per infectious disease. Postsurgical management as per surgical service. Appreciate assistance. = Cultures negative. Appreciate ID assistance //IVDA -Counseled, encouraged to quit -Ativan for withdrawal/ agitation DVT prophylaxis: SCDs Discharge Planning Culture negative so far. We will need ID and neurosurgery clearance. Will need long course of IV antibiotics. Chema Novak MD October 21, 2017 11:14
--- NOTE | 2017-10-21 11:20 | HHI.NSPN ---
(Romero Mancini) History Chief Complaint: Neck pain (Romero Mancini) Interval History 10/18: The patient is a 32-year-old male who states that this past Friday, he developed progressive severe neck pain. He felt a mild fever yesterday. No other chills or sweats. No complaint of headache, blurred vision, diplopia, dizziness, vertigo, speech difficulty, confusion, pain weakness or numbness in the extremities. He does give a history of IV drug abuse, indicating last use approximately 7 months ago. 10/19: The patient went late yesterday evening for a C5-6 anterior cervical discectomy with evacuation of an epidural abscess and granulation tissue followed by an anterior cervical interbody fusion and cervical instrumentation which was completed early this morning. Post-operatively he was transferred back to the med/surg floor for further care and monitoring. When seen this afternoon the patient complains of pain to the neck and says his pain medication is helping. He states that his throat hurts and he has difficulty swallowing. He remains on a clear diet. He denies any pain, numbness or tingling to the extremities. Upon examination he is tender to the midline cervical spine and anterior neck surgical incision. There are no sensorimotor deficits noted. He does interact readily but is fixated on his pain. This practitioner acts as a scribe for this note. 10/21: Patient denies any numbness or tingling to the extremities. Still with midline cervical spine pain and surgical site pain. States that he has not been up yet. (Romero Mancini) Exam Results 10/19/17 10/19/17 10/20/17 10/20/17 10/21/17 10/21/17 06:00 18:00 06:00 18:00 06:00 18:00 Intake Total 2200 ml 1002 ml 960 ml Output Total 2070 ml 1800 ml 1200 ml 1210 ml 2775 ml 500 ml Balance 130 ml -798 ml -1200 ml -1210 ml -1815 ml -500 ml Intake Oral 0 ml 960 ml IV Total 800 ml 1002 ml Other 1400 ml Output Urine Total 2050 ml 1800 ml 1200 ml 1200 ml 2775 ml 500 ml Drainage Total 10 ml Estimated Blood Loss 20 ml # Voids 2 4 # Bowel Movements 0 0 0 Vital Signs Date Time Temp Pulse Resp B/P (MAP) Pulse Ox O2 Delivery O2 Flow Rate FiO2 10/21/17 08:00 98.3 75 16 134/72 (92) 94 10/21/17 04:00 98.4 77 20 144/77 (99) 95 10/21/17 04:00 75 10/21/17 00:00 70 10/21/17 00:00 98.8 78 18 140/83 (102) 96 10/20/17 20:00 99.4 78 20 139/74 (95) 96 10/20/17 20:00 73 10/20/17 16:01 98.5 71 16 145/81 (102) 96 10/20/17 12:01 98.2 78 17 139/75 (96) 96 10/20/17 08:01 98.1 71 17 144/74 (97) 95 10/20/17 04:16 98.8 73 18 138/73 (94) 95 10/20/17 03:58 74 10/19/17 23:50 83 10/19/17 23:43 99.4 89 20 134/69 (90) 95 10/19/17 20:14 79 10/19/17 16:00 75 10/19/17 15:47 98.9 95 20 140/76 (97) 96 10/19/17 12:00 98.3 73 21 140/81 (100) 97 10/19/17 12:00 75 10/19/17 08:51 98.0 72 18 137/83 (101) 100 10/19/17 08:00 71 10/19/17 04:20 73 10/19/17 04:00 98.3 72 20 118/65 (82) 99 Nasal Cannula 3 10/19/17 04:00 97.6 72 16 123/74 (90) 98 10/19/17 03:45 73 20 114/63 (80) 99 Nasal Cannula 4 10/19/17 03:30 74 8 101/60 (74) 96 Nasal Cannula 4 10/19/17 03:17 77 19 103/60 (74) 94 Nasal Cannula 4 10/19/17 03:00 79 19 110/59 (76) 96 Simple Mask 6 10/19/17 02:45 79 18 96/53 (67) 95 Simple Mask 10 10/19/17 02:30 79 20 93/53 (66) 93 Simple Mask 10 10/19/17 02:27 98.7 80 20 112/59 (76) 93 Simple Mask 10 10/18/17 19:15 78 26 129/70 (89) 96 10/18/17 19:11 98.6 82 26 129/71 (90) 97 10/18/17 19:05 Room Air 10/18/17 16:00 98.0 81 17 131/82 (98) 96 10/18/17 12:00 97.6 73 17 135/81 (99) 98 10/18/17 11:52 (Romero Mancini) Physical Examination In [place] cervical collar. Sensation intact to light touch to all extremities. Muscle strength is normal to all extremities. (Romero Mancini) Lab, Micro, Other Results Recent Impressions Cervical Spine X-Ray 10/19/17 0000 Signed Impressions: CONCLUSION: Interim fusion procedure at C5/C6. No evidence of an acute complication. Laboratory Tests Test 10/18/17 17:24 10/19/17 05:10 10/21/17 03:45 Erythrocyte Sedimentation Rate 46 mm/hr C-Reactive Protein 9.80 MG/DL White Blood Count 7.7 TH/MM3 Red Blood Count 3.64 MIL/MM3 Hemoglobin 10.9 GM/DL Hematocrit 30.7 % Mean Corpuscular Volume 84.4 FL Mean Corpuscular Hemoglobin 29.9 PG Mean Corpuscular Hemoglobin Concent 35.5 % Red Cell Distribution Width 12.9 % Platelet Count 216 TH/MM3 Mean Platelet Volume 7.0 FL Neutrophils (%) (Auto) 62.3 % Lymphocytes (%) (Auto) 27.0 % Monocytes (%) (Auto) 8.7 % Eosinophils (%) (Auto) 1.8 % Basophils (%) (Auto) 0.2 % Neutrophils # (Auto) 4.8 TH/MM3 Lymphocytes # (Auto) 2.1 TH/MM3 Monocytes # (Auto) 0.7 TH/MM3 Eosinophils # (Auto) 0.1 TH/MM3 Basophils # (Auto) 0.0 TH/MM3 CBC Comment DIFF FINAL Differential Comment Blood Urea Nitrogen 7 MG/DL Creatinine 0.70 MG/DL Random Glucose 91 MG/DL Total Protein 6.2 GM/DL Albumin 2.5 GM/DL Calcium Level 7.9 MG/DL Alkaline Phosphatase 82 U/L Aspartate Amino Transf (AST/SGOT) 23 U/L Alanine Aminotransferase (ALT/SGPT) 30 U/L Total Bilirubin 0.5 MG/DL Sodium Level 141 MEQ/L Potassium Level 3.8 MEQ/L Chloride Level 107 MEQ/L Carbon Dioxide Level 28.0 MEQ/L Anion Gap 6 MEQ/L Estimat Glomerular Filtration Rate 132 ML/MIN Vancomycin Level Trough 39.8 MCG/ML 4.7 MCG/ML (Romero Mancini) Medical Decision Making Impression and Plan Impression: Cervical epidural fluid collection consistent with abscess Postoperative Diagnosis: (1) Cervical discitis (2) Epidural abscess 1. C5-6 discitis POD #2 () s/p: 1. C5-6 anterior cervical discectomy, evacuation of epidural abscess and granulation tissue. 2. C5-6 anterior cervical interbody fusion, composite allograft bone 3. C5-6 anterior cervical instrumentation Plan: Primary management per Hospitalist. Antibiotic management per Infectious Disease. Neuro checks q4h. [place] J cervical collar at all times. Hold pharmacologic DVT prophylaxis. Mechanical DVT prophylaxis. Cepacol lozenges PRN sore throat. D/c CLARENCE drain after pre-medicating patient for pain. Mobilise patient w/assistance. Physical Therapy eval & tx. Discussed with patient that he is not able to smoke or take NSAIDs for at least three months after surgery due to poor bone healing. He verbalised his understanding and had no questions. He was offered a nicotine patch which he refused. (Romero Mancini) Attending Statement The exam, history, and the medical decision-making described in the above note were completed with the assistance of the mid-level provider. I reviewed and agree with the findings presented. I attest that I had a [id number] encounter with the patient on the same day, and personally performed and documented my assessment and findings in the medical record. Patient's examination 10/21/2017 remains stable neurologic function. No significant difficulty swallowing Infectious disease following. Cultures noted. (Rogelio Baum MD) Romero Mancini October 21, 2017 11:20 Rogelio Baum MD Oct 24, 2017 22:27
[2017-10-21 12:00] VITALS: BP 124/73; PULSE 82; RESP 16; TEMP 98.2; O2SAT 94
[2017-10-21 16:00] VITALS: BP 125/67; PULSE 80; RESP 16; TEMP 98.3; O2SAT 95
[2017-10-21 20:00] VITALS: BP 126/71; PULSE 73; PULSE 75; RESP 18; TEMP 98.3; O2SAT 98
[2017-10-21] MEDS: LORazepam 2 MG/ML VIAL IV PUSH PRN (22:20)
[2017-10-22] VITALS (7 sets, daily range): BP systolic 119–161; BP diastolic 67–79; PULSE 73–94; RESP 15–16; TEMP 97.8–99.4; O2SAT 95–96
[2017-10-22] MEDS: 1/2 NS + KCL 20 MEQ INJ 1,000 ML IV SCH ×2 (00:20→05:35)
[2017-10-22] MEDS: MORPHINE SULFATE 4 MG/ML INJ IV PUSH PRN ×4 (01:28→09:11)
[2017-10-22] MEDS ORDERED: PHARMACY ORDERED LAB ONE ×2 (03:45→19:45)
[2017-10-22] MEDS: CEFEPIME INJ 2,000 MG in SODIUM CHLORIDE 0.9% INJ 100 ML IV SCH ×3 (03:52→20:26)
[2017-10-22] MEDS: VANCOMYCIN INJ 1,250 MG in SODIUM CHLOR 0.9% 250 ML INJ 250 ML IV SCH ×3 (03:52→21:52)
--- NOTE | 2017-10-22 10:17 | HHI.PR ---
Subjective Remarks Patient says he is feeling all right. Denies any chest pain shortness of breath. Denies nausea or vomiting. Denies lightheadedness or dizziness. Walking around without difficulty. Objective Vital Signs Date Time Temp Pulse Resp B/P (MAP) Pulse Ox O2 Delivery O2 Flow Rate FiO2 10/22/17 04:00 76 10/22/17 04:00 97.8 73 15 123/78 (93) 96 10/22/17 00:00 98.4 81 16 128/67 (87) 96 10/22/17 00:00 80 10/21/17 20:00 98.3 73 18 126/71 (89) 98 10/21/17 20:00 75 10/21/17 16:00 98.3 80 16 125/67 (86) 95 10/21/17 12:00 98.2 82 16 124/73 (90) 94 I/O 10/21/17 10/21/17 10/21/17 10/22/17 10/22/17 10/22/17 07:00 15:00 23:00 07:00 15:00 23:00 Intake Total 360 ml 840 ml 862.5 ml Output Total 1525 ml 500 ml 1625 ml 1600 ml Balance -1165 ml -500 ml -785 ml -737.5 ml Intake Oral 360 ml 740 ml 600 ml IV Total 100 ml 262.5 ml Output Urine Total 1525 ml 500 ml 1625 ml 1600 ml # Voids 4 # Bowel Movements 0 0 Result Diagram: 10/19/17 0510 10/19/17 0510 Objective Remarks GENERAL: Patient in neck brace. Appears comfortable. Alert. SKIN: Warm and dry. HEAD: Normocephalic. EYES: No scleral icterus. No injection or drainage. NECK: Supple, trachea midline. No JVD. CARDIOVASCULAR: Regular rate and rhythm without murmurs, gallops, or rubs. RESPIRATORY: Breath sounds equal bilaterally. No accessory muscle use. GASTROINTESTINAL: Abdomen soft, non-tender, nondistended. MUSCULOSKELETAL: No cyanosis, or edema. BACK: Nontender without obvious deformity. No CVA tenderness. A/P Assessment and Plan 32 y/o male with with a history IVDA presents to the ED with complaints of back pain for the last 3 days. //Cervical spinal abscess MRI reviewed and shows degenerative disc disease at c5-c6 without definite discitis with a small epidural fluid collection posterior to the C5 and C6 vertebral bodies and small fluid diffusely in the retropharyngeal space. Possible early epidural abscesses. -Cont Vanco and cefepime IV -Consult neurosurgery for possible surgery -NPO, IVF -Pain management with [place] PO and Morphine IV -Consult infectious disease = Continue broad-spectrum antibiotics as per infectious disease. Postsurgical management as per surgical service. Appreciate assistance. = Cultures still negative. Appreciate ID assistance //IVDA -Counseled, encouraged to quit -Ativan for withdrawal/ agitation DVT prophylaxis: SCDs Discharge Planning Culture negative so far. We will need ID and neurosurgery clearance. Will need long course of IV antibiotics. As per ID. Chema Novak MD October 22, 2017 10:17
[2017-10-22] MEDS ORDERED: NALOXONE HCL 0.4 MG/ML AMP IV PUSH PRN (10:30)
[2017-10-22] MEDS ORDERED: ACETAMINOPHEN/HYDROcodone 325 MG/5 MG TAB PO PRN (10:30)
[2017-10-22] MEDS: ACETAMINOPHEN/HYDROcodone 325 MG/10 MG TAB PO PRN ×3 (11:12→20:25)
[2017-10-22] MEDS: DOCUSATE SODIUM 50 MG/SENNA 8.6 MG TAB PO SCH ×2 (11:12→20:26)
[2017-10-22] MEDS: SODIUM CHLORIDE 0.9% FLUSH 10 ML FLUSH IV FLUSH SCH ×2 (11:13→20:26)
[2017-10-22] MEDS: LORazepam 2 MG/ML VIAL IV PUSH PRN (21:55)
[2017-10-23] VITALS: BP 115/64; PULSE 78; PULSE 80; RESP 16; TEMP 98.1; O2SAT 99
[2017-10-23] MEDS: ACETAMINOPHEN/HYDROcodone 325 MG/10 MG TAB PO PRN ×4 (02:48→20:29)
[2017-10-23] MEDS: CEFEPIME INJ 2,000 MG in SODIUM CHLORIDE 0.9% INJ 100 ML IV SCH ×3 (02:52→20:29)
[2017-10-23] MEDS: VANCOMYCIN INJ 1,250 MG in SODIUM CHLOR 0.9% 250 ML INJ 250 ML IV SCH ×3 (03:34→21:41)
[2017-10-23 04:00] VITALS: BP 120/61; PULSE 77; PULSE 87; RESP 16; TEMP 98.3; O2SAT 96
[2017-10-23 07:35] LABS: CREATININE 0.63 MG/DL (0.60-1.30)
[2017-10-23 08:00] VITALS: BP 114/71; PULSE 72; PULSE 74; RESP 16; TEMP 98; O2SAT 95
[2017-10-23] MEDS: DOCUSATE SODIUM 50 MG/SENNA 8.6 MG TAB PO SCH ×2 (09:00→20:29)
[2017-10-23] MEDS: SODIUM CHLORIDE 0.9% FLUSH 10 ML FLUSH IV FLUSH SCH ×2 (09:57→20:29)
--- NOTE | 2017-10-23 11:26 | HHI.PR ---
Subjective Remarks Patient says he is feeling all right. No complaints. Pain is under control. Objective Vital Signs Date Time Temp Pulse Resp B/P (MAP) Pulse Ox O2 Delivery O2 Flow Rate FiO2 10/23/17 09:00 Room Air 10/23/17 08:00 74 10/23/17 08:00 98.0 72 16 114/71 (85) 95 10/23/17 04:00 77 10/23/17 04:00 Room Air 10/23/17 04:00 98.3 87 16 120/61 (80) 96 10/23/17 00:00 98.1 78 16 115/64 (81) 99 10/23/17 00:00 Room Air 10/23/17 00:00 80 10/22/17 20:00 88 10/22/17 20:00 Room Air 10/22/17 19:52 98.4 88 16 132/75 (94) 96 10/22/17 19:18 18 10/22/17 16:30 18 10/22/17 16:00 98.4 81 16 119/72 (88) 95 10/22/17 12:00 99.4 94 16 161/79 (106) 96 I/O 10/22/17 10/22/17 10/22/17 10/23/17 10/23/17 10/23/17 07:00 15:00 23:00 07:00 15:00 23:00 Intake Total 862.5 ml 250 ml 1202.5 ml 362.5 ml Output Total 1600 ml 800 ml 950 ml Balance -737.5 ml -550 ml 252.5 ml 362.5 ml Intake Oral 600 ml 740 ml IV Total 262.5 ml 250 ml 462.5 ml 362.5 ml Output Urine Total 1600 ml 800 ml 950 ml # Bowel Movements 0 Result Diagram: 10/19/17 0510 10/23/17 0605 Objective Remarks GENERAL: Patient in neck brace. Appears comfortable. Alert. No change on exam SKIN: Warm and dry. HEAD: Normocephalic. EYES: No scleral icterus. No injection or drainage. NECK: Supple, trachea midline. No JVD. CARDIOVASCULAR: Regular rate and rhythm without murmurs, gallops, or rubs. RESPIRATORY: Breath sounds equal bilaterally. No accessory muscle use. GASTROINTESTINAL: Abdomen soft, non-tender, nondistended. MUSCULOSKELETAL: No cyanosis, or edema. BACK: Nontender without obvious deformity. No CVA tenderness. A/P Assessment and Plan 32 y/o male with with a history IVDA presents to the ED with complaints of back pain for the last 3 days. //Cervical spinal abscess MRI reviewed and shows degenerative disc disease at c5-c6 without definite discitis with a small epidural fluid collection posterior to the C5 and C6 vertebral bodies and small fluid diffusely in the retropharyngeal space. Possible early epidural abscesses. -Cont Vanco and cefepime IV -Consult neurosurgery for possible surgery -NPO, IVF -Pain management with [place] PO and Morphine IV -Consult infectious disease = Continue broad-spectrum antibiotics as per infectious disease. Postsurgical management as per surgical service. Appreciate assistance. = Cultures still negative. Appreciate ID assistance. Antibiotic regimen as per ID. //IVDA -Counseled, encouraged to quit -Ativan for withdrawal/ agitation DVT prophylaxis: SCDs Discharge Planning Culture negative so far. We will need ID and neurosurgery clearance. Will need long course of IV antibiotics. As per ID. Chema Novak MD October 23, 2017 11:25
[2017-10-23] MEDS ORDERED: PHARMACY ORDERED LAB ONE (11:45)
[2017-10-23 12:00] VITALS: BP 126/69; PULSE 82; PULSE 88; RESP 16; TEMP 97.3; O2SAT 96
[2017-10-23] MEDS ORDERED: Vancomycin Consult Pharmacy 1 EA OTHER ONE (12:45)
[2017-10-23] MEDS ORDERED: Vancomycin Consult Pharmacy 1 EA OTHER SCH (13:00)
[2017-10-23 16:00] VITALS: BP 102/53; PULSE 82; PULSE 93; RESP 16; TEMP 98.1; O2SAT 95
[2017-10-23 20:00] VITALS: BP 117/72; PULSE 86; PULSE 90; RESP 18; TEMP 97.7; O2SAT 96
[2017-10-23] MEDS: LORazepam 2 MG/ML VIAL IV PUSH PRN (22:23)
[2017-10-24] VITALS (9 sets, daily range): BP systolic 104–123; BP diastolic 55–77; PULSE 72–112; RESP 16–20; TEMP 97.3–98.1; O2SAT 94–96
[2017-10-24] MEDS: CEFEPIME INJ 2,000 MG in SODIUM CHLORIDE 0.9% INJ 100 ML IV SCH ×2 (03:03→11:48)
[2017-10-24] MEDS: ACETAMINOPHEN/HYDROcodone 325 MG/10 MG TAB PO PRN ×4 (03:12→18:18)
[2017-10-24] MEDS: VANCOMYCIN INJ 1,250 MG in SODIUM CHLOR 0.9% 250 ML INJ 250 ML IV SCH ×2 (03:51→12:41)
[2017-10-24 07:58] LABS: CREATININE 0.65 MG/DL (0.60-1.30)
[2017-10-24] MEDS: DOCUSATE SODIUM 50 MG/SENNA 8.6 MG TAB PO SCH ×2 (09:00→21:00)
[2017-10-24] MEDS: SODIUM CHLORIDE 0.9% FLUSH 10 ML FLUSH IV FLUSH SCH ×2 (10:06→20:48)
--- NOTE | 2017-10-24 13:59 | HHI.IDPN ---
Subjective Subjective Remarks Patient is a 32-year-old male, presented to the hospital complaining of 3 day history of neck pain. Pain gets worse when he moves. He denies any problem with weakness, bowel or urinary problem. He has not had any fever chills or sweats. Denies any respiratory complaints, urinary complain or any nausea or vomiting or diarrhea. Patient has known IV drug use although he states that the last time he used he was 7 months ago. 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 Highest temperature since admission has been 99+. MRI of the cervical spine is showing fluid collection around C5-C6. He also had thoracic and lumbar MRI which were both negative. Infectious disease consultation has been requested to evaluate the patient. Notes reviewed Temps ok C/O neck pain but seems to be under control C/S negative BC negative ESR 46 CRP 9.8 Vanco level subtherapeutic patient states he has not used IVDU in the last 7 months He lives in a plce with his girlfriend He has no insurance Antibiotics Vancomycin Cefepime Current Medications Medications (Trade) Dose Ordered Sig/Walt Route Start Time Stop Time Status Last Admin (Ativan Inj) 1 mg Q2H PRN IV PUSH 10/18/17 02:45 10/23/17 22:23 (NS Flush) 2 ml UNSCH PRN IV FLUSH 10/18/17 02:45 (NS Flush) 2 ml BID IV FLUSH 10/18/17 09:00 10/24/17 10:06 (Reglan Inj) 5 mg Q6H PRN IV PUSH 10/18/17 02:45 (Tylenol) 650 mg Q6H PRN PO 10/18/17 02:45 (Susanne-Colace) 1 tab BID PO 10/18/17 09:00 10/22/17 11:12 (Milk Of Magnesia Liq) 30 ml Q12H PRN PO 10/18/17 02:45 (Senokot) 17.2 mg Q12H PRN PO 10/18/17 02:45 (Dulcolax Supp) 10 mg DAILY PRN RECTAL 10/18/17 02:45 (Lactulose Liq) 30 ml DAILY PRN PO 10/18/17 02:45 (Chloraseptic [place]) 1 lozenge UNSCH PRN BUCCAL 10/19/17 02:30 10/20/17 09:11 Cefepime HCl 2000 mg/Sodium Chloride 100 ml @ 200 mls/hr Q8H IV 10/19/17 12:00 10/24/17 11:48 (Narcan Inj) 0.4 mg UNSCH PRN IV PUSH 10/19/17 12:15 (Cepacol Extra [place] (Sugar Free)) 1 lozenge Q2HR PRN BUCCAL 10/19/17 18:00 Vancomycin HCl 1250 mg/Sodium Chloride 262.5 ml @ 250 mls/hr Q8H IV 10/21/17 12:00 10/24/17 12:41 ([place] 5-325 Mg) 1 tab Q4H PRN PO 10/22/17 10:30 ([place] 10-325 Mg) 1 tab Q4H PRN PO 10/22/17 10:30 10/24/17 10:07 (Roxicodone) 5 mg Q4H PRN PO 10/22/17 15:45 10/24/17 11:48 Pharmacy Profile Note ml @ 0 mls/hr UNSCH OTHER 10/23/17 13:00 ([facility] Ordered Lab Info) SPECIFIC LAB TO BE DRAWN:VANCO TROUGH DATE... ONCE ONCE .XX 10/26/17 11:45 10/26/17 11:46 Lines IV no evidence of infection Past Medical History L ankle OR Lumbar spine fusion Allergies: Coded Allergies: No Known Allergies (Unverified , 10/17/17) Objective . Vital Signs Date Time Temp Pulse Resp B/P (MAP) Pulse Ox O2 Delivery O2 Flow Rate FiO2 10/24/17 12:20 98.1 98 18 122/77 (92) 95 10/24/17 09:00 Room Air 10/24/17 08:30 97.7 85 18 104/59 (74) 95 10/24/17 04:00 98.1 82 16 123/77 (92) 94 10/24/17 04:00 82 10/24/17 03:20 Room Air 10/24/17 00:00 Room Air 10/24/17 00:00 112 10/24/17 00:00 97.8 96 16 110/55 (73) 95 10/23/17 20:00 97.7 86 18 117/72 (87) 96 10/23/17 20:00 Room Air 10/23/17 20:00 90 10/23/17 17:24 Room Air 10/23/17 16:00 93 10/23/17 16:00 98.1 82 16 102/53 (69) 95 . Laboratory Tests Test 10/23/17 06:05 10/24/17 06:46 Creatinine 0.63 MG/DL 0.65 MG/DL Estimat Glomerular Filtration Rate 150 ML/MIN 144 ML/MIN Imaging Last 72 hours Impressions Cervical Spine X-Ray 10/19/17 0000 Signed Impressions: CONCLUSION: Interim fusion procedure at C5/C6. No evidence of an acute complication. Thoracic Spine MRI 10/18/17 0000 Signed Impressions: CONCLUSION: 1. MRI of the thoracic spine within normal limits. Lumbar Spine MRI 10/18/17 0000 Signed Impressions: CONCLUSION: 1. Surgical, remote posttraumatic and multilevel degenerative changes seen of the lumbar spine. Mild bilateral foraminal encroachment at L5/S1. 2. No acute fracture or subluxation. No high-grade stenosis. No acute lumbar s pine inflammatory changes. Cervical Spine MRI 10/18/17 0000 Signed Impressions: CONCLUSION: 1. Degenerative disc disease at C5/C6 without definite discitis but there does appear to be some associated inflammatory change, including a small epidural f luid collection posterior to the C5 and C6 vertebral bodies and small fluid dif fusely in the retropharyngeal space. Early retropharyngeal and/or epidural absc esses are in the differential. Mild marrow edema of the C5 and C6 vertebral bod ies appears reactive. No definite osteomyelitis at this time. Mild spinal and b ilateral foraminal stenosis at C5/C6. 2. Mild and typical-appearing degenerative disc changes at other levels withou t significant foraminal or spinal stenosis. Chest X-Ray 10/17/17 2308 Signed Impressions: CONCLUSION: Trace atelectasis and/or infiltrate right base. Physical Exam GENERAL: awake and alert, not in respiratory distress. SKIN: Warm and dry. Has scattered small eschars face, UE and LE. No ecchymoses and no evidence of embolic lesions. HEAD: Atraumatic. Normocephalic. No temporal wasting, or tenderness. EYES: [place] conjunctiva. No petechia or hemorrhage. Pupils equal, round and reactive to light. Extraocular movements full and intact. No scleral icterus. No injection or drainage. EARS, NOSE AND THROAT: Nose without bleeding or purulent nasal discharge. No sinus tenderness. Mucous membranes pink and moist. No oral lesions noted. NECK: Trachea midline. Wearing a cervical collar. Incision dry CARDIOVASCULAR: Regular rate and rhythm. No murmurs, rubs or gallops heard RESPIRATORY: Clear to auscultation. Breath sounds equal bilaterally. No rales , wheezing or rhonchi ABDOMEN: Soft, non-tender, nondistended. Bowel sounds present and normoactive. No guarding. No rebound. No organomegaly. EXTREMITIES: No clubbing, cyanosis, or edema.No joint effusion, has good ROM. No calf tenderness. Well perfused and warm. NEUROLOGICAL: Non-focal. PSYCHIATRIC: Normal affect, calm and cooperative. LINE: No evidence of infection Assessment & Plan Remarks IMPRESSION Cervical spine abscess, C5-6 discitis Known IVDU - states last use was 7 months ago RECOMMENDATION Will arrange for IV Abx in infusion clinic Will treat for most common pathogen - Staph and Strep Use IV Cubicin, and stop vanco (he gets Q8H which is not possible in outpatient setting) - check CPK Stop Cefepime PO Cipro PICC Will ask CM to set up in outpatient infusion clinic Pain control Once arranged, D/C I will fill out antibiotic infusion form Armida Jay MD Oct 24, 2017 13:59
--- NOTE | 2017-10-24 14:00 | HHI.FF ---
Infusion Therapy Location of Infusion Therapy: Ambulatory Infusion Therapy Order Patient Information Patient Weight 72.3 kg Diagnosis: Diagnosis C5-6 discitis, epidural abscess Coded Allergies: No Known Allergies (Unverified , 10/17/17) Administer Medication Cubicin 600 mg IV daily Stop Treatment: Dec 13, 2017 Additional Information Venous access: PICC Line Additional Instructions [x] Peripheral flush and dressing changes per protocol [x] Implanted port and central waistline joiner overlock: * Implanted port: 10 ml Normal Saline followed by 5 ml Heparin 100 units/ml Heparin flush after each use and monthly to maintain. [] May leave port accessed during therapy. [] May leave peripheral site accessed for duration of therapy. [x] If patient has SOB or respiratory distress, check oxygen saturation. If less than 90% or clinical signs of respiratory distress, administer oxygen at 2 L/min. via nasal cannula and notify physician. [x] Anaphylaxis/Reaction orders: * Stop infusion. * Keep IV line open with saline flush. * Notify physician. * Monitor vital signs every 15 minutes until symptoms resolve. * Check Oxygen saturation; Oxygen at 2 L/min. via nasal cannula if less than 90% or clinical signs of respiratory distress. * Administer diphenhydramine (Benadryl) 25 mg IV STAT, (unless patient has received as pre-med). May repeat once, if necessary. * Solu-Cortef 250 mg IVP over 30-60 seconds, use 100 mg vials for each dissolution. * Epinephrine (1mg/1 ml) 0.3 mg subcutaneously or IVP now with any signs of respiratory distress. * Check with physician for new additional pre-med orders if patient is re- challenged or re-treated. [x] May remove PICC line when treatment complete, after confirming with Physician. [x] If the patient is admitted to the hospital, the ED, or transferred via EVAC , complete transfer form including medication reconciliation order sheet. Laboratory Tests Weekly Labs: CBC w/diff, Creatinine, Serum CK Levels (Labs every Friday - copy to ne) Armida aJy MD Oct 24, 2017 14:00
[2017-10-24] MEDS ORDERED: DAPT500P IV (14:02)
[2017-10-24] MEDS ORDERED: OXYC-395 PO (16:23)
[2017-10-24] MEDS ORDERED: CIPR750T2 PO (16:23)
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
[2017-10-24] MEDS: CIPROFLOXACIN 750 MG TAB PO SCH ×2 (16:42→22:35)
[2017-10-24] MEDS: DAPTOmycin INJ 600 MG in SODIUM CHLORIDE 0.9% INJ 100 ML IV SCH (16:42)
--- NOTE | 2017-10-24 17:07 | HHI.NSPN ---
History Chief Complaint: Neck pain Interval History No complaint of significant difficulty swallowing. No breathing difficulty. No significant throat pain. No complaint of pain weakness numbness paresthesias in the extremities or difficulty with bowel or bladder function Exam Results Vital Signs Date Time Temp Pulse Resp B/P (MAP) Pulse Ox O2 Delivery O2 Flow Rate FiO2 10/24/17 12:20 98.1 98 18 122/77 (92) 95 10/24/17 09:00 Room Air Intake and Output 10/24/17 10/24/17 10/25/17 08:00 16:00 00:00 Intake Total 362.5 ml Balance 362.5 ml Physical Examination In [place] cervical collar. Neck incision dry and intact. No edema or erythema or significant tenderness. No hoarseness of voice Sensation intact to light touch to all extremities. Muscle strength is normal to all extremities. Lab, Micro, Other Results Laboratory Tests Test 10/24/17 06:46 10/24/17 16:20 Creatinine 0.65 MG/DL Estimat Glomerular Filtration Rate 144 ML/MIN Total Creatine Kinase 39 U/L Medical Decision Making Impression and Plan Impression: Stable post op exam Plan; Discussed with medical service. May discharge home. Cervical collar when active Appt neurosurgery in 2 weeks Rogelio Baum MD Oct 24, 2017 17:07
--- NOTE | 2017-10-24 17:56 | HHI.PR ---
Subjective Remarks Nursing denies any deterioration since last night. Patient himself has no new complaints. Is asking for a more advanced diet. Objective Vital Signs Date Time Temp Pulse Resp B/P (MAP) Pulse Ox O2 Delivery O2 Flow Rate FiO2 10/24/17 16:00 83 10/24/17 12:20 98.1 98 18 122/77 (92) 95 10/24/17 12:00 72 10/24/17 09:00 Room Air 10/24/17 08:30 97.7 85 18 104/59 (74) 95 10/24/17 08:00 81 10/24/17 04:00 98.1 82 16 123/77 (92) 94 10/24/17 04:00 82 10/24/17 03:20 Room Air 10/24/17 00:00 Room Air 10/24/17 00:00 112 10/24/17 00:00 97.8 96 16 110/55 (73) 95 10/23/17 20:00 97.7 86 18 117/72 (87) 96 10/23/17 20:00 Room Air 10/23/17 20:00 90 I/O 10/23/17 10/23/17 10/23/17 10/24/17 10/24/17 10/24/17 07:00 15:00 23:00 07:00 15:00 23:00 Intake Total 362.5 ml 1202.5 ml 362.5 ml Output Total 800 ml Balance 362.5 ml 402.5 ml 362.5 ml Intake Oral 840 ml IV Total 362.5 ml 362.5 ml 362.5 ml Output Urine Total 800 ml # Bowel Movements 1 Result Diagram: 10/24/17 0646 Objective Remarks Sitting up in [place] J cervical collar, no acute distress comments able to open his jaw full range of motion. A/P Assessment and Plan 32 y/o male with with a history IVDA presents to the ED with complaints of back pain for the last 3 days. //Cervical spinal abscess MRI reviewed and shows degenerative disc disease at c5-c6 without definite discitis with a small epidural fluid collection posterior to the C5 and C6 vertebral bodies and small fluid diffusely in the retropharyngeal space. Possible early epidural abscesses. -Status post surgical debridement -1. C5-6 anterior cervical discectomy, evacuation of epidural abscess and granulation tissue. 2. C5-6 anterior cervical interbody fusion, composite allograft bone 3. C5-6 anterior cervical instrumentation -Doing well with p.o. pain medications. Switched over to Cubicin and Cipro per infectious disease. DVT prophylaxis: SCDs Discharge Planning Medically stable for discharge, just awaiting arrangements for outpatient IV antibiotic infusion. Anticipate discharge in 2 days. Prem Fox MD Oct 24, 2017 17:56
[2017-10-25] VITALS (10 sets, daily range): BP systolic 100–129; BP diastolic 53–76; PULSE 74–103; RESP 18–20; TEMP 97.2–97.7; O2SAT 95–98
[2017-10-25] MEDS: ACETAMINOPHEN/HYDROcodone 325 MG/10 MG TAB PO PRN ×5 (01:30→23:16)
[2017-10-25] MEDS: DOCUSATE SODIUM 50 MG/SENNA 8.6 MG TAB PO SCH ×2 (09:00→21:00)
[2017-10-25] MEDS: CIPROFLOXACIN 750 MG TAB PO SCH ×2 (09:26→21:41)
[2017-10-25] MEDS: SODIUM CHLORIDE 0.9% FLUSH 10 ML FLUSH IV FLUSH SCH ×2 (09:27→21:42)
[2017-10-25] MEDS ORDERED: SODIUM CHLORIDE 0.9% FLUSH 10 ML FLUSH IV FLUSH PRN (12:00)
[2017-10-25] MEDS: DAPTOmycin INJ 600 MG in SODIUM CHLORIDE 0.9% INJ 100 ML IV SCH (15:12)
[2017-10-25] MEDS: LORazepam 2 MG/ML VIAL IV PUSH PRN (23:16)
[2017-10-26] VITALS: BP 104/59; PULSE 96; RESP 20; TEMP 97.9; O2SAT 95
[2017-10-26 03:50] VITALS: PULSE 86
[2017-10-26 08:00] VITALS: BP 105/63; PULSE 88; PULSE 89; RESP 18; TEMP 97.4; O2SAT 95
[2017-10-26] MEDS: DOCUSATE SODIUM 50 MG/SENNA 8.6 MG TAB PO SCH (08:40)
[2017-10-26] MEDS: CIPROFLOXACIN 750 MG TAB PO SCH (08:41)
[2017-10-26] MEDS: ACETAMINOPHEN/HYDROcodone 325 MG/10 MG TAB PO PRN (08:42)
[2017-10-26] MEDS: SODIUM CHLORIDE 0.9% FLUSH 10 ML FLUSH IV FLUSH SCH (08:42)
[2017-10-26] MEDS ORDERED: SODIUM CHLORIDE 0.9% FLUSH 10 ML FLUSH IV FLUSH SCH (09:00)
[2017-10-26] MEDS ORDERED: PHARMACY ORDERED LAB ONE (11:45)
[2017-10-26 12:00] VITALS: BP 121/74; PULSE 58; PULSE 93; PULSE 96; RESP 18; TEMP 97.4; O2SAT 95
--- NOTE | 2017-10-26 14:58 | HHI.PR ---
Subjective Remarks Nursing denies any deterioration since last night. Patient himself has no new complaints. Is asking for a more advanced diet. Objective Vital Signs Date Time Temp Pulse Resp B/P (MAP) Pulse Ox O2 Delivery O2 Flow Rate FiO2 10/26/17 12:00 97.4 93 18 121/74 (90) 95 10/26/17 12:00 96 10/26/17 08:00 88 10/26/17 08:00 Room Air 10/26/17 08:00 97.4 89 18 105/63 (77) 95 10/26/17 03:50 86 10/26/17 00:00 97.9 96 20 104/59 (74) 95 10/26/17 00:00 Room Air 10/25/17 23:43 103 10/25/17 20:00 Room Air 10/25/17 20:00 97.3 95 20 127/71 (89) 96 10/25/17 19:43 101 10/25/17 16:00 97.7 90 20 100/65 (77) 97 10/25/17 16:00 95 I/O 10/25/17 10/25/17 10/25/17 10/26/17 10/26/17 10/26/17 07:00 15:00 23:00 07:00 15:00 23:00 Intake Total 480 ml 1040 ml 400 ml Output Total 600 ml 800 ml Balance -120 ml 1040 ml -400 ml Intake Oral 480 ml 840 ml 400 ml IV Total 200 ml Output Urine Total 600 ml 800 ml # Voids 1 2 # Bowel Movements 1 Result Diagram: 10/24/17 0646 Objective Remarks Sitting up in [place] J cervical collar, no acute distress comments able to open his jaw full range of motion. A/P Assessment and Plan 32 y/o male with with a history IVDA presents to the ED with complaints of back pain for the last 3 days. //Cervical spinal abscess MRI reviewed and shows degenerative disc disease at c5-c6 without definite discitis with a small epidural fluid collection posterior to the C5 and C6 vertebral bodies and small fluid diffusely in the retropharyngeal space. Possible early epidural abscesses. -Status post surgical debridement -1. C5-6 anterior cervical discectomy, evacuation of epidural abscess and granulation tissue. 2. C5-6 anterior cervical interbody fusion, composite allograft bone 3. C5-6 anterior cervical instrumentation -Doing well with p.o. pain medications. Cubicin and Cipro per infectious disease. DVT prophylaxis: SCDs Discharge Planning Medically stable for discharge, just awaiting arrangements for outpatient IV antibiotic infusion. Prem Fox MD Oct 26, 2017 14:58
[2017-10-26] MEDS: DAPTOmycin INJ 600 MG in SODIUM CHLORIDE 0.9% INJ 100 ML IV SCH (15:11)
[2017-10-26 16:00] VITALS: BP 120/69; PULSE 107; RESP 18; TEMP 97.4; O2SAT 95
== END 2017-10-26 16:12 | disposition home or self-care (01) | DRG 30 ==
LOC: NEPD 21:50 → NEDA 10-18 02:38 → NEDH 10-18 07:32 → N04B 10-18 12:24
PROVIDERS: ADMIT Hospitalist; ATTEND Hospitalist
PROC: 0RG10K0 Fusion of Cervical Vertebral Joint with Nonautologous Tissue Substitute, Anterior Approach, Anterior Column, Open Approach (ICD-10-PCS; 2017-10-18)
PROC: 0RB30ZZ Excision of Cervical Vertebral Disc, Open Approach (ICD-10-PCS; 2017-10-18)
PROC: 0RG10A0 Fusion of Cervical Vertebral Joint with Interbody Fusion Device, Anterior Approach, Anterior Column, Open Approach (ICD-10-PCS; 2017-10-18)
PROC: 0PB30ZZ Excision of Cervical Vertebra, Open Approach (ICD-10-PCS; 2017-10-18)
PROC: 0T9B70Z Drainage of Bladder with Drainage Device, Via Natural or Artificial Opening (ICD-10-PCS; 2017-10-18)
PROC: 009U0ZX Drainage of Spinal Canal, Open Approach, Diagnostic (ICD-10-PCS; principal; 2017-10-18 22:32)
DX: G06.1 Intraspinal abscess and granuloma (principal); R13.10 Dysphagia, unspecified; F17.210 Nicotine dependence, cigarettes, uncomplicated; R00.0 Tachycardia, unspecified; M50.322 Other cervical disc degeneration at C5-C6 level; Z98.1 Arthrodesis status; M46.42 Discitis, unspecified, cervical region; M25.78 Osteophyte, vertebrae
CPT/HCPCS: 36415; 71045; 72040; 72156; 72157; 72158; 76000; 76937; 80053; 80202; 81001; 82550; 82565; 83605; 85025; 85652; 86140; 87015; 87040; 87070; 87102; 87116; 87205; 87206; 94150; 96361; 96374; 96375; A9579; C1713; J0131; J0690; J0692; J0878; J1580; J1642; J1885; J2060; J2270; J2370; J3010; J3370; J7030; J7050; L0172

== ENCOUNTER 2017-10-27 13:10 | Day surgery (SDC) | payer SELFPAY ==
[~2017-10-27 13:10] MED LIST: CIPR750T2 PO; DAPT500P IV; OXYC-395 PO
[2017-10-27 13:35] VITALS: BP 113/74; PULSE 116; RESP 20; TEMP 98.9; O2SAT 98
[2017-10-27 14:30] VITALS: BP 116/72; PULSE 108; RESP 18; O2SAT 98
--- NOTE | 2017-10-27 14:36 | PD.RAD ---
Radiology Post PICC Prog Note Pre Procedure Diagnosis: (1) Encounter for assessment of peripherally inserted central venous catheter ( PICC) Post Procedure Diagnosis: (1) Encounter for assessment of peripherally inserted central venous catheter ( PICC) Procedure Date: Oct 27, 2017 Supervising Radiologist Joseph Emerson JR Proceduralist/Assist: Bambi Franklin, RT(R)(), Gonzales Coffman, RT(R) Device Side: Right Malay: 4 single lumen cm: 39 Catheter: Power PICC Plan of Activity Patient to Unit: [facility] Patient Condition: Good PICC line can be used immediately Additional Comments: Original PICC line had pulled back. Replaced with new PICC line. Jr. Ki,Joseph Palacios MD Oct 27, 2017 14:35
[2017-10-27] MEDS ORDERED: SODIUM CHLORIDE 0.9% FLUSH 10 ML FLUSH IVF PRN ×2 (14:45)
--- NOTE | 2017-10-28 08:21 | RADRPT ---
EXAM DATE: 10/27/2017 2:41 PM EDT AGE/SEX: 32 years / Male INDICATIONS: Patient presents with dislodged peripherally inserted central catheter in need of repl acement. CLINICAL DATA: This is the patient's initial encounter. Patient reports that signs and symptoms have been present for 1 week and indicates a pain score of 0/10. MEDICAL/SURGICAL HISTORY: . IVDA . Left ankle surgery lumbar fusion COMPARISON: No prior [place] exams available for comparison. FLUORO TIME (min): 0.2 IMAGE SERIES: 2 ACCESS SITE: Right basilic vein DEVICE(S): 4 [place] single lumen Xcela Power PICC . . PROCEDURE : 1. Fluoroscopic guidance. 2. Fluoroscopic guided central venous Power PICC line replacement. The risks, benefits and alternatives to the procedure were explained and verbal and written consent w as obtained. The arm was prepped in sterile fashion. Full sterile technique was used, including cap , mask, sterile gloves and gown and a large sterile sheet. Hand hygiene and 2% chlorhexidine prep wa s utilized per protocol for cutaneous antisepsis with appropriate dry time for site. The skin and montilla bcutaneous tissues were infiltrated with local anesthetic solution. Under direct fluoroscopic guidance the previously placed PICC line was removed over a guidewire and a fresh Power Injectable PICC line was cut to prescribed length and positioned with tip at the cavoatr ial junction level. The line was flushed and secured per protocol. CONCLUSION: 1. Uncomplicated central venous Power PICC line replacement. 2. The PICC line can be used immediately. Electronically signed by: Joseph Emerson MD 10/28/2017 8:19 AM EDT
[2017-10-28] MEDS ORDERED: SODIUM CHLORIDE 0.9% FLUSH 10 ML FLUSH IVF SCH (09:00)
== END 2017-10-27 14:30 | disposition home or self-care (01) ==
LOC: HROP 13:10 → HRIP 13:12 → HROP 14:30
PROVIDERS: ATTEND Internal Medicine Infectious Disease
DX: T82.524A Displacement of infusion catheter, initial encounter (principal); M46.46 Discitis, unspecified, lumbar region
CPT/HCPCS: 36584; 77001; C1751; J1642

== ENCOUNTER 2017-11-27 19:25 | Inpatient (IN) ==
[2017-11-27 22:28] LABS: Baso # (Auto) 0.1 th/mm3 (0.0-0.2); Baso % (Auto) 0.6 % (0.0-2.0); Eos % (Auto) 0.1 % (0.0-4.0); Hematocrit 34.3 % (39.0-51.0); Hemoglobin 11.8 gm/dL (13.0-17.0); Lymph % (Auto) 11.1 % (9.0-44.0); Mean Corpuscular HGB Conc 34.3 % (32.0-36.0); Mean Corpuscular Hemoglobin 28.3 pg (27.0-34.0); Mean Corpuscular Volume 82.6 fL (80.0-100.0); Mean Platelet Volume 7.8 fL (7.0-11.0); Mono # (Auto) 0.5 th/mm3 (0.0-0.9); Mono % (Auto) 5.7 % (0.0-8.0); Neut # (Auto) 7.4 th/mm3 (1.8-7.7); Neut % (Auto) 82.5 % (16.0-70.0); Platelet Count 173 th/mm3 (150-450); Red Blood Count 4.15 mil/mm3 (4.50-5.90); Red Cell Distribution Width 13.1 % (11.6-17.2); White Blood Count 8.9 th/mm3 (4.0-11.0)
--- NOTE | 2017-11-27 22:38 | CT ---
EXAM DATE: 11/27/2017 10:28 PM EDT AGE/SEX: 32 years / Male INDICATIONS: Neck pain, fever, evaluate for abscess. CLINICAL DATA: This is the patient's initial encounter. Patient reports that signs and symptoms have been present for 4 - 6 days and indicates a pain score of 10/10. MEDICAL/SURGICAL HISTORY: . Substance abuse. Fusion, cervical. RADIATION DOSE: 21.49 CTDI (mGy) COMPARISON: No prior exams available for comparison. TECHNIQUE: Contiguous axial images were obtained using helical multirow detector technique. The vol umetric data was post-processed with multiplanar reconstruction in oblique axial, sagittal, and coron al planes. Using automated exposure control and adjustment of the mA and/or kV according to patient s ize, radiation dose was kept as low as reasonably achievable to obtain optimal diagnostic quality sulema ges. DICOM format image data is available electronically for review and comparison. FINDINGS: There is ventral hardware fusion at C5-6. The hardware appears intact. The alignment is anatomic. The re is no evidence of fracture or destructive change. Disc spaces are otherwise well preserved. There is no evidence of bony canal or foraminal compromise. There is no evidence of paraspinal mass or lizette ection CONCLUSION: No acute bony process in the cervical spine. Electronically signed by: Antony Stephens MD 11/27/2017 10:37 PM EDT
--- NOTE | 2017-11-27 22:40 | XR ---
EXAM DATE: 11/27/2017 10:38 PM EDT AGE/SEX: 32 years / Male INDICATIONS: Fever. CLINICAL DATA: This is the patient's initial encounter. Patient reports that signs and symptoms have been present for 1 day and indicates a pain score of 0/10. MEDICAL/SURGICAL HISTORY: . Hepatitis C. None. COMPARISON: [facility] [place] [facility], 10/17/2017. . FINDINGS: Right arm PICC line is present in good position. There is infiltrate in the left lung base with sligh t associated effusion. Right lung is grossly clear. Cardiac contours are satisfactory. CONCLUSION: Left base infiltrate Electronically signed by: Antony Stephens MD 11/27/2017 10:39 PM EDT
[2017-11-27 22:46] LABS: Albumin 3.1 g/dL (3.4-5.0); Anion Gap 13 meq/L (5-15); Aspartate Aminotransferase 22 U/L (15-37); Blood Urea Nitrogen 10 mg/dL (7-18); Carbon Dioxide 22.2 meq/L (21.0-32.0); Chloride 94 meq/L (98-107); Glomerular Filtration Rate Greater Than 89 mL/min (>89); Glucose,Random 105 mg/dL (74-106); Potassium 3.3 meq/L (3.5-5.1); Sodium 129 meq/L (136-145)
--- NOTE | 2017-11-27 22:48 | ED ---
HPI General Chief Complaint: Fever Stated Complaint: Chest pain/Pik line complaint Time Seen by Provider: 11/27/17 21:40 Source: patient Mode of arrival: ambulatory Limitations: no limitations History of Present Illness HPI Narrative: Patient is a 32-year-old male presents the emergency department with chief complaint of fever. He states that he is supposed to be getting vancomycin through his PICC line daily however has missed the last week. He originally stated that he had car problems however when pushed a bit he admits that he has been using heroin. He has been using heroin through his PICC line and now has rigors and fever. Related Data Home Medications Medication Instructions Recorded Confirmed Unable to Obtain Home Meds 11/27/17 11/27/17 Allergies Allergy/AdvReac Type Severity Reaction Status Date / Time No Known Allergies Allergy Unverified 11/13/17 09:36 Review of Systems Except as stated in HPI: all other systems reviewed are negative Respiratory Reports pain on inspiration (left lateral lower ribs) [facility] Medical History Medical History Fusion of lumbar spine (Acute) IVDU (intravenous drug user) (Acute) Surgical History Surgical History H/O cervical discectomy (Acute) History of lumbar fusion (Acute) S/P surgical manipulation of ankle joint (Acute) Social History Social History Substance History: Active Abuse Second Hand Smoke Exposure: No Smoking Status: Current every day smoker Tobacco Type: Cigarettes How Often Do You Have a Drink Containing Alcohol: Monthly or less Recent Travel in [facility] within the Last 8 Weeks: No Recent Out of Country Travel within the Last 8 Weeks: No Substance Abuse Detail Heroin: Substance Use Status: Active Route Used Substance Abuse: Intravenously Substance Frequency: unsure Reason for Use: Get High Immunization History Tetanus Immunization: Unsure Hx Influenza Vaccine This Season: No Exam Narrative Exam Narrative: GENERAL: 32-year-old male who is ill-appearing SKIN: Focused skin assessment warm/dry. HEAD: Atraumatic. Normocephalic. EYES: Pupils equal and round. No scleral icterus. No injection or drainage. ENT: No nasal bleeding or discharge. Mucous membranes pink and moist. NECK: Trachea midline. No JVD. Painful range of motion CARDIOVASCULAR: Regular rate and rhythm. No murmur appreciated. RESPIRATORY: No accessory muscle use. Clear to auscultation. Breath sounds equal bilaterally. GASTROINTESTINAL: Abdomen soft, non-tender, nondistended. Hepatic and splenic margins not palpable. MUSCULOSKELETAL: No obvious deformities. No clubbing. No cyanosis. No edema. PICC line in the right biceps area is dirty and appears to be clotted Course Initial Documented Vital Signs Temperature 102.7 F H 11/27/17 21:16 Pulse Rate 124 H 11/27/17 21:16 Respiratory Rate 20 11/27/17 21:16 Blood Pressure 166/70 H 11/27/17 21:16 Pulse Oximetry 95 11/27/17 21:16 Last Documented Vital Signs Temperature 98.1 F 11/28/17 15:46 Pulse Rate 69 11/28/17 15:46 Respiratory Rate 17 11/28/17 15:46 Blood Pressure 118/69 11/28/17 15:46 Pulse Oximetry 95 11/28/17 16:00 Medical Decision Making MDM Narrative Medical decision making narrative: Patient was seen and evaluated. He met sepsis criteria and was admitted to the hospital for further evaluation and treatment. He was given an IV dose of vancomycin while in the emergency department he was also given clonidine and Tylenol for his pain and withdrawal symptoms. Lab Data Result diagrams: 11/27/17 22:06 11/27/17 22:06 Lab Results 11/27/17 11/27/17 11/27/17 Range/Units 22:06 22:06 22:06 WBC 8.9 (4.0-11.0) th/mm3 RBC 4.15 L (4.50-5.90) mil/mm3 Hgb 11.8 L (13.0-17.0) gm/dL Hct 34.3 L (39.0-51.0) % MCV 82.6 (80.0-100.0) fL MCH 28.3 (27.0-34.0) pg MCHC 34.3 (32.0-36.0) % RDW 13.1 (11.6-17.2) % Plt Count 173 (150-450) th/mm3 MPV 7.8 (7.0-11.0) fL Neut % (Auto) 82.5 H (16.0-70.0) % Lymph % (Auto) 11.1 (9.0-44.0) % [place] % (Auto) 5.7 (0.0-8.0) % Eos % (Auto) 0.1 (0.0-4.0) % Baso % (Auto) 0.6 (0.0-2.0) % Neut # (Auto) 7.4 (1.8-7.7) th/mm3 Lymph # (Auto) 1.0 (1.0-4.8) th/mm3 [place] # (Auto) 0.5 (0.0-0.9) th/mm3 Eos # (Auto) 0.0 (0.0-0.4) th/mm3 Baso # (Auto) 0.1 (0.0-0.2) th/mm3 WBC Differential . Differential Comment Auto diff final Sodium 129 L (136-145) meq/L Potassium 3.3 L (3.5-5.1) meq/L Chloride 94 L (98-107) meq/L Carbon Dioxide 22.2 (21.0-32.0) meq/L Anion Gap 13 (5-15) meq/L BUN 10 (7-18) mg/dL Creatinine 0.83 (0.60-1.30) mg/dL Estimated GFR Greater than 89 (>89) mL/min POC Glucose (68-110) mg/dl Random Glucose 105 (74-106) mg/dL Lactic Acid 1.1 (0.4-2.0) mmol/L Calcium 9.0 (8.5-10.1) mg/dL Total Bilirubin 1.1 H (0.2-1.0) mg/dL AST 22 (15-37) U/L ALT 25 (12-78) U/L Alkaline Phosphatase 91 (45-117) U/L Total Protein 8.3 H (6.4-8.2) g/dL Albumin 3.1 L (3.4-5.0) g/dL Urine Color (Yellw/Straw) Urine Clarity (Clear) Urine pH (5.0-8.5) Ur Specific [place] (1.002-1.035) Urine Protein (Neg-Trace) mg/dL Urine Glucose (UA) (Negative) mg/dL Urine Ketones (Negative) mg/dL Urine Occult Blood (Negative) Urine Nitrate (Negative) Urine Bilirubin (Negative) Urine Urobilinogen (Less than 2) mg/dL Ur Leukocyte Esterase (Negative) Urine RBC (0-3) /hpf Urine WBC (0-5) /hpf Urine Bacteria (None) /hpf Hyaline Casts (0-3) /lpf Urine Mucus (Occasional) /lpf Micro UA Comment Urine Culture Comments 11/27/17 11/28/17 Range/Units 23:30 10:35 WBC (4.0-11.0) th/mm3 RBC (4.50-5.90) mil/mm3 Hgb (13.0-17.0) gm/dL Hct (39.0-51.0) % MCV (80.0-100.0) fL MCH (27.0-34.0) pg MCHC (32.0-36.0) % RDW (11.6-17.2) % Plt Count (150-450) th/mm3 MPV (7.0-11.0) fL Neut % (Auto) (16.0-70.0) % Lymph % (Auto) (9.0-44.0) % [place] % (Auto) (0.0-8.0) % Eos % (Auto) (0.0-4.0) % Baso % (Auto) (0.0-2.0) % Neut # (Auto) (1.8-7.7) th/mm3 Lymph # (Auto) (1.0-4.8) th/mm3 [place] # (Auto) (0.0-0.9) th/mm3 Eos # (Auto) (0.0-0.4) th/mm3 Baso # (Auto) (0.0-0.2) th/mm3 WBC Differential Differential Comment Sodium (136-145) meq/L Potassium (3.5-5.1) meq/L Chloride (98-107) meq/L Carbon Dioxide (21.0-32.0) meq/L Anion Gap (5-15) meq/L BUN (7-18) mg/dL Creatinine (0.60-1.30) mg/dL Estimated GFR (>89) mL/min POC Glucose 144 H (68-110) mg/dl Random Glucose (74-106) mg/dL Lactic Acid (0.4-2.0) mmol/L Calcium (8.5-10.1) mg/dL Total Bilirubin (0.2-1.0) mg/dL AST (15-37) U/L ALT (12-78) U/L Alkaline Phosphatase (45-117) U/L Total Protein (6.4-8.2) g/dL Albumin (3.4-5.0) g/dL Urine Color Yellow (Yellw/Straw) Urine Clarity Clear (Clear) Urine pH 7.0 (5.0-8.5) Ur Specific [place] 1.023 (1.002-1.035) Urine Protein 100 H (Neg-Trace) mg/dL Urine Glucose (UA) Negative (Negative) mg/dL Urine Ketones Trace (Negative) mg/dL Urine Occult Blood Small H (Negative) Urine Nitrate Negative (Negative) Urine Bilirubin Negative (Negative) Urine Urobilinogen 4 or greater (Less than 2) mg/dL Ur Leukocyte Esterase Negative (Negative) Urine RBC 4 H (0-3) /hpf Urine WBC 3 (0-5) /hpf Urine Bacteria Rare H (None) /hpf Hyaline Casts 1 (0-3) /lpf Urine Mucus Few H (Occasional) /lpf Micro UA Comment Culture not ind Urine Culture Comments Culture not ind Imaging Data Radiologist's impression: ITS Impressions Chest X-Ray 11/27/17 22:01 CONCLUSION: Left base infiltrate Cervical Spine CT 11/27/17 22:02 CONCLUSION: No acute bony process in the cervical spine. Chest X-Ray 11/28/17 00:00 CONCLUSION: There continues to be a patchy infiltrate in the left lower lung without significant change versus slightly increased compared to the prior study. Discharge Plan Discharge Disposition Patient Disposition: 32 Still Patient Physicians Team ED Provider: Shavonne Chaney Primary Care Provider: Primary Care Marry Tijerina Attending Provider: Michelle Willson Other Providers: Armida Jay Discharge Interventions Interventions: ED Discharge Assessment Last Done: 11/28/17 01:21 Vital Signs Last Done: 11/28/17 01:21 Status ED Status: Left Department Discharge Information Discharge Date/Time: 11/28/17 01:30
[2017-11-27 22:50] LABS: Alanine Aminotransferase 25 U/L (12-78); Alkaline Phosphatase 91 U/L (45-117); Total Protein 8.3 g/dL (6.4-8.2)
[2017-11-27] MEDS ORDERED: Sod Chloride 0.9% Inj 1,000 ML IV.SIG ONE (22:51)
[2017-11-27] MEDS ORDERED: Vancomycin Inj 1 GM/200 ML PIGGYBACK IV.SIG SCH (23:00)
[2017-11-27] MEDS ORDERED: Acetaminophen 500 MG Tablet PO ONE (23:39)
[2017-11-27 23:56] LABS: Bacteria,Urine Rare /hpf; Bilirubin,Urine Negative (Negative); Clarity,Urine Clear (Clear); Color,Urine Yellow (Yellw/Straw); Glucose,Urine (UA) Negative (Negative); Hyaline Casts,Urine 1 /lpf (0-3); Leukocyte Esterase,Urine Negative (Negative); Mucus,Urine Few /lpf (Occasional); Nitrite,Urine Negative (Negative); Specific Gravity,Urine 1.023 (1.002-1.035); Urobilinogen,Urine 4 or Greater mg/dL (Less than 2)
[2017-11-28] MEDS ORDERED: Bisacodyl 10 MG Supp RECTAL PRN (00:08)
[2017-11-28] MEDS: Enoxaparin Inj 40 MG/0.4 ML Syringe SQ SCH (00:18)
[2017-11-28] MEDS: Sod Chloride 0.9% Inj 1,000 ML IV.CONT SCH ×2 (00:18→12:38)
[2017-11-28] MEDS ORDERED: Vancomycin Inj 700 MG in Sodium Chlor 0.9% Inj 250 ML IV.SIG SCH (01:00)
[2017-11-28] MEDS ORDERED: Vancomycin Consult Pharmacy 1 EACH OTHER SCH ×2 (01:00→16:00)
--- NOTE | 2017-11-28 04:53 | ECG ---
Date Performed: 11/27/2017 Time Performed: 19:44:57 PTAGE: 32 years EKG: SINUS TACHYCARDIA POSSIBLE LEFT ATRIAL ENLARGEMENT NONSPECIFIC T-WAVE ABNORMALITY ABNORMAL RHYTHM ECG NO PREVIOUS TRACING DOCTOR: Pete Calvo Interpretating Date/Time 11/28/2017 04:52:50
[2017-11-28] MEDS ORDERED: Acetaminophen 325 MG Tablet PO PRN (07:56)
[2017-11-28] MEDS ORDERED: Naloxone Inj 0.4 MG/ML Vial IV.PUSH PRN ×2 (07:56→13:15)
[2017-11-28] MEDS ORDERED: Ketorolac Inj 30 MG/ML (IVP) Vial IV.PUSH PRN (09:00)
--- NOTE | 2017-11-28 12:36 | P.HPIM ---
History of Present Illness Primary Care Physician: No Primary Care Physician History of Present Illness: This is a 32-year-old male with history of IV drug use, was recently discharge in the hospital October 18 - October 26, found to have C5-C6 discitis status post cervical discectomy. Patient seen by infectious disease and was discharged on IV Cubicin. Cultures were negative. Patient allegedly has been going to the ambulatory clinic to receive his Cubicin infusion until last week when he stopped going because he does not have any transportation. There is report from the emergency department but after further probing, he admitted to hearing IV use. He however adamantly denied using his PICC line for heroine use. Complaint was fever, chills and left pain radiating from his neck. Since discharge, there is no change in his neck pain. No other complaints like shortness of breath, cough, diarrhea, urinary frequency, urgency or low back pain. Inpatient Certification: I certify that the inpatient services were ordered in accordance with Medicare regulations governing the order. This includes certification that hospital inpatient services are reasonable and necessary and in the case of services not specified as inpatient-only under 42 CFR 419.22(n), that they are appropriately provided as inpatient services in accordance to with the 2-midnight benchmark under 43 CFR 412.3(e) Estimated Total Length of Stay (Days): 3 Plans for Post Hospital Care: Home [facility] - History History Provided By: Patient - Medical History Medical History: Medical History (Last Updated 11/28/17 @ 12:33 by Michelle Willson MD) Fusion of lumbar spine IVDU (intravenous drug user) - Surgical History Surgical History: Surgical History (Last Updated 11/28/17 @ 12:33 by Michelle Willson MD) H/O cervical discectomy S/P surgical manipulation of ankle joint - Tobacco History Second Hand Smoke Exposure: No Tobacco Use In Past 30 Days: Yes (1 ppd) Smoking Status: Current every day smoker Tobacco Type: Cigarettes - Alcohol History How Often Do You Have a Drink Containing Alcohol: Monthly or less - Substance Use History Substance History: Active Abuse - Substance Use Type Heroin Status: Active Route Used: Intravenously Frequency: unsure Reason for Use: Get High - Travel History Recent Travel in the [place] Within the Last 8 Weeks: No Recent Travel Out of the Country Within the Last 8 Weeks: No - Immunization History Tetanus Immunization: Unsure Hx Influenza Vaccine This Season: No Medications and Allergies Active Medications: Active Medications Acetaminophen (Tylenol) 650 mg PO Q6HR PRN PRN Reason: pain 1-5, fever Al Hydroxide/Mg Hydroxide (Milk Of Magnesia Liq) 30 ml PO Q12H PRN PRN Reason: Mild Constipation Bisacodyl (Dulcolax Supp) 10 mg RECTAL DAILY PRN PRN Reason: SEVERE CONSITIPATION Enoxaparin Sodium (Lovenox Inj) 40 mg SQ Q24H [facility] Last Admin: 11/28/17 00:18 Dose: 40 mg Vancomycin/Sodium Chloride (Vancomycin Inj) 1 gm in 200 mls @ 200 mls/hr IV.SIG E [employer]GER [facility] Last Infusion: 11/28/17 02:14 Dose: Infused Sodium Chloride (Ns Inj) 1,000 mls @ 100 mls/hr IV.CONT .Q10H [facility] Last Infusion: 11/28/17 04:14 Dose: 100 mls/hr Pharmacy Profile Note (Vancomycin Consult Pharmacy) 0 mls @ 0 mls/hr OTHER UNSCH [facility] Vancomycin HCl 1,250 mg/ (Sodium Chloride) 262.5 mls @ 250 mls/hr IV.SIG Q12H [facility] Ketorolac Tromethamine (Toradol Inj) 30 mg IV.PUSH Q6H PRN PRN Reason: PAIN 6-10;IF UNABLE TO TAKE PO Stop: 12/03/17 08:59 Last Admin: 11/28/17 10:30 Dose: 30 mg Lactulose (Lactulose Liq) 30 ml PO DAILY PRN PRN Reason: SEVERE CONSITIPATION Miscellaneous Information ([facility] Ordered Lab Info) 0 each OTHER ONCE ONE Stop: 11/30/17 03:46 Naloxone HCl (Narcan Inj) 0.4 mg IV.PUSH UNSCH PRN PRN Reason: SEE LABEL COMMENTS Sennosides (Senokot) 17.2 mg PO Q12H PRN PRN Reason: Moderate Constipation Allergies Allergy/AdvReac Type Severity Reaction Status Date / Time No Known Allergies Allergy Unverified 11/13/17 09:36 Home Medications Medication Instructions Recorded Confirmed Type Unable to Obtain Home Meds 11/27/17 11/27/17 History Exam Vital signs: Vital Signs 11/27/17 21:16 11/27/17 22:02 11/27/17 22:04 Temperature 102.7 F H Pulse Rate 124 H 114 H 114 H Respiratory Rate 20 16 Blood Pressure 166/70 H 128/72 Pulse Oximetry 95 97 11/28/17 00:08 11/28/17 01:21 11/28/17 02:03 Temperature 99 F 97.7 F Pulse Rate 108 H 81 Respiratory Rate 22 17 Blood Pressure 132/70 95/52 L Pulse Oximetry 98 96 97 11/28/17 02:30 11/28/17 08:00 11/28/17 11:27 Temperature 97.7 F 98.1 F 98.2 F Pulse Rate 80 77 70 Respiratory Rate 17 16 17 Blood Pressure 95/52 L 111/61 122/63 Pulse Oximetry 97 96 96 Intake & Output 11/27/17 11/28/17 11/28/17 18:59 06:59 18:59 Intake Total 600 / 600 Output Total 1000 / 1000 Balance -400 / -400 Weight 65.4 kg Intake: IV 200 / 200 Vancomycin Inj 1 gm In 200 ml @ 200 / 200 200 mls/hr IV.SIG E [employer] MANAGER [facility]YCE Rx#:[id number] Oral 400 / 400 Output: Urine 1000 / 1000 Other: # Voids 1 # Bowel Movements 0 Narrative: GENERAL: Not in acute distress, well-nourished. Unkempt. HEAD: No temporal or scalp tenderness. EYES: PERRL, full EOMs, no jaundice, nonicteric, pink conjunctivae without injection, moist mucosa CARDIOVASCULAR: Regular rate and rhythm without murmurs, gallops, or rubs. No tenderness on palpation of the chest. RESPIRATORY: Clear to auscultation with normal respiratory effort. Breath sounds equal bilaterally. No use of accessory muscles of respiration. GASTROINTESTINAL: Abdomen soft, normal bowel sounds, non-tender, nondistended. No hepato-splenomegaly or palpable mass. No guarding. KATIE and exam deferred. MUSCULOSKELETAL: Extremities without clubbing, cyanosis, or edema. Mild tenderness on palpation of the cervical area. INTEGUMENTARY: No murmurs crusting lesions in the glabellar area and the bridge of the nose. Also with scattered crusting eschars bilateral dorsal forearm. NEUROLOGICAL: Awake, alert, oriented 3. No obvious cranial nerve deficits. Moves all 4 extremities, muscle strength testing 5 over Results - Labs CBC & Chem 7: 11/27/17 22:06 07/05/18 22:06 Labs: Short CBC 11/27/17 Range/Units 22:06 WBC 8.9 (4.0-11.0) th/mm3 Hgb 11.8 L (13.0-17.0) gm/dL Hct 34.3 L (39.0-51.0) % Plt Count 173 (150-450) th/mm3 BMP 11/27/17 22:06 Sodium 129 L Potassium 3.3 L Chloride 94 L Carbon Dioxide 22.2 BUN 10 Creatinine 0.83 Calcium 9.0 Liver Function 11/27/17 Range/Units 22:06 Total Bilirubin 1.1 H (0.2-1.0) mg/dL AST 22 (15-37) U/L ALT 25 (12-78) U/L Alkaline Phosphatase 91 (45-117) U/L Albumin 3.1 L (3.4-5.0) g/dL Urine 11/27/17 Range/Units 23:30 Urine Color Yellow (Yellw/Straw) Urine Clarity Clear (Clear) Urine pH 7.0 (5.0-8.5) Ur Specific [place] 1.023 (1.002-1.035) Urine Protein 100 H (Neg-Trace) mg/dL Urine Glucose (UA) Negative (Negative) mg/dL - Imaging Impressions Chest X-Ray 11/27/17 22:01 CONCLUSION: Left base infiltrate Cervical Spine CT 11/27/17 22:02 CONCLUSION: No acute bony process in the cervical spine. Caprini VTE Risk Assessment Caprini VTE Risk Assessment: Moderate/High Risk (score >= 2) Caprini Risk Assessment Model: Point Value = 1 Point Value = 2 Point Value = 3 Point Value = 5 Age 41-60 Minor surgery BMI > 25 kg/m2 Swollen legs Varicose veins or History of unexplained or recurrent spontaneous Oral contraceptives or hormone replacement Sepsis (< 1 month) Serious lung disease, including pneumonia (< 1 month) Abnormal pulmonary function Acute myocardial infarction Congestive heart failure (< 1 month) History of inflammatory bowel disease Medical patient at bed rest Age 61-74 Arthroscopic surgery Major open surgery (> 45 min) Laparoscopic surgery (> 45 min) Malignancy Confined to bed (> 72 hours) Immobilizing plaster cast Central venous access Age >= 75 History of VTE Family history of VTE Factor V Leiden Prothrombin [id number] Lupus anticoagulant Anticardiolipin antibodies Elevated serum homocysteine Heparin-induced thrombocytopenia Other congenital or acquired thrombophilia Stroke (< 1 month) Elective arthroplasty Hip, pelvis, or leg fracture Acute spinal cord injury (< 1 month) Prophylaxis Regimen: Total Risk Factor Score Risk Level Prophylaxis Regimen 0-1 Low Early ambulation 2 Moderate Order ONE of the following: *Sequential Compression Device (SCD) *Heparin 5000 units SQ BID 3-4 Higher Order ONE of the following medications: *Heparin 5000 units SQ TID *Enoxaparin/Lovenox 40 mg SQ daily (WT < 150 kg, CrCl > 30 mL/min) *Enoxaparin/Lovenox 30 mg SQ daily (WT < 150 kg, CrCl > 10-29 mL/min) *Enoxaparin/Lovenox 30 mg SQ BID (WT < 150 kg, CrCl > 30 mL/min) AND/OR *Sequential Compression Device (SCD) 5 or more Highest Order ONE of the following medications: *Heparin 5000 units SQ TID (Preferred with Epidurals) *Enoxaparin/Lovenox 40 mg SQ daily (WT < 150 kg, CrCl > 30 mL/min) *Enoxaparin/Lovenox 30 mg SQ daily (WT < 150 kg, CrCl > 10-29 mL/min) *Enoxaparin/Lovenox 30 mg SQ BID (WT < 150 kg, CrCl > 30 mL/min) AND *Sequential Compression Device (SCD) Assessment and Plan - Plan This is a 32-year-old male with history of IV drug use, recently diagnosed colitis status post surgery, discharged on Cubicin, readmitted for fever. Sepsis, rule out bacteremia-blood cultures drawn, pending results, consult infectious disease, continue Cubicin for now. PICC line still in place. Patient denies any IV drug use through his PICC line. No leukocytosis. Temperature on admission was 102.7 with heart rate of 124,, respiratory rate of 20. Presently, leukocytosis has resolved. No other obvious source of infection , urinalysis negative. Complaining of left-sided chest pain, check chest x-ray. Cervical Discitis-status post discectomy during previous admission, antibiotics as above, continue [place] for pain control with NSAIDs. Hyponatremia-sodium 129, recheck tomorrow, recheck BMP Hypokalemia-replace, recheck BMP tomorrow. DVT prophylaxis: Low risk, Lovenox. H&P: Quality - VTE Deep Vein Thrombosis/Pulmonary Embolism Present on Admission: No
[2017-11-28] MEDS ORDERED: Ibuprofen 600 MG Tablet PO PRN (13:16)
--- NOTE | 2017-11-28 14:14 | XR ---
EXAM DATE: 11/28/2017 2:11 PM EDT AGE/SEX: 32 years / Male INDICATIONS: Fever, Infection CLINICAL DATA: This is the patient's subsequent encounter. Patient reports that signs and symptoms h ave been present for 1 day and indicates a pain score of 3/10. MEDICAL/SURGICAL HISTORY: Sepsis. Non-responsive. PICC COMPARISON: [facility], CHEST 1V SINGLE AP, 11/27/2017. . FINDINGS: There continues to be a infiltrate in the left lung base. This is about the same or mildly increased compared to the prior exam. The right lung remains clear and well-aerated. No other new infiltrates a re demonstrated. The heart size is stable. No significant pleural effusions. No pulmonary edema. Ther e is a right-sided PICC line in place. The bony structures are stable. CONCLUSION: There continues to be a patchy infiltrate in the left lower lung without significant change versus sl ightly increased compared to the prior study. Electronically signed by: Jan Coffey MD 11/28/2017 2:13 PM EDT
--- NOTE | 2017-11-28 15:36 | P.CONID ---
History of Present Illness Service: Infectious disease Consult date: 11/28/17 Requesting Physician: Michelle Willson Reason for Consult: Evaluate patient with sepsis Primary Care Provider: No Primary Care Physician Family Provider: No Primary Care Physician History of Present Illness: Patient seen and examined. Records reviewed. Patient is a 32-year-old male, with known history of IV drug use, presented to the hospital complaining of fever and chills, and left-sided chest pain. This is been going on for several days. He denies any significant cough or congestion. He has not had any nausea or vomiting or any diarrhea or urinary complaints. His history is significant for a diagnosis of C5-C6 discitis and epidural abscess for which she was hospitalized October 18 - October 26. At that time cultures were negative, but the patient was on IV antibiotics for at least 2-3 days before he had surgery. All his blood cultures were negative. Patient was discharge and arrangements were made for patient to get IV antibiotics at the infusion clinic. He was on an oral quinolone, and IV Cubicin. His PICC line got dislodged, and it was change on October 27. Patient missed most of his IV antibiotic treatment. The last time he was seen in the infusion clinic was November 13. He claims that he did not have any transportation that is why he was not able to go to the clinic. Patient denies using his PICC line for drugs but he admits to using IV drugs. Since admission he has had fevers on the first hospital day, and he is afebrile today. He is complaining of left-sided chest pain. His blood cultures are now reported as growing gram-positive cocci. Chest x-ray showing a left base infiltrate. CT of the cervical spine is unremarkable with no evidence of abscess. Patient still has his PICC line in the right upper extremity. Infectious disease consultation has been requested to assist with evaluation and treatment of fever and sepsis. Review of Systems Constitutional: Reports chills, Reports fever(s), Denies headache(s) Eyes: Denies discharge, Denies dry eyes, Denies pain Ears, Nose, Mouth, and Throat: Denies dizziness, Denies ear pain, Denies headache(s), Denies sore throat Cardiovascular: Reports chest pain, Denies shortness of breath Respiratory: Denies cough, Denies shortness of breath Gastrointestinal: Denies abdominal pain, Denies nausea, Denies vomiting Genitourinary: Denies blood in urine, Denies painful urination, Denies urinary hesitancy Musculoskeletal: Denies back pain Skin/Breast: Reports rash, Reports sores Neurologic: Denies headache(s) PMFSH - History History Provided By: Patient - Medical History Medical History: Medical History (Last Updated 11/28/17 @ 12:33 by Michelle Willson MD) Fusion of lumbar spine IVDU (intravenous drug user) - Surgical History Surgical History: Surgical History (Last Updated 11/28/17 @ 15:29 by Armida Jay MD) H/O cervical discectomy History of lumbar fusion S/P surgical manipulation of ankle joint - Tobacco History Second Hand Smoke Exposure: No Tobacco Use In Past 30 Days: Yes (1 ppd) Smoking Status: Current every day smoker Tobacco Type: Cigarettes - Alcohol History How Often Do You Have a Drink Containing Alcohol: Monthly or less - Substance Use History Substance History: Active Abuse - Substance Use Type Heroin Status: Active Route Used: Intravenously Frequency: unsure Reason for Use: Get High - Travel History Recent Travel in the [place] Within the Last 8 Weeks: No Recent Travel Out of the Country Within the Last 8 Weeks: No - Immunization History Tetanus Immunization: Unsure Hx Influenza Vaccine This Season: No Medications and Allergies Active Medications: Active Medications Acetaminophen (Tylenol) 650 mg PO Q6HR PRN PRN Reason: pain 1-5, fever Hydrocodone Bitart/Acetaminophen ([place] 10/325) 1 tab PO Q4H PRN PRN Reason: PAIN SCALE 6 TO 10 Al Hydroxide/Mg Hydroxide (Milk Of Magnesia Liq) 30 ml PO Q12H PRN PRN Reason: Mild Constipation Bisacodyl (Dulcolax Supp) 10 mg RECTAL DAILY PRN PRN Reason: SEVERE CONSITIPATION Enoxaparin Sodium (Lovenox Inj) 40 mg SQ Q24H [facility] Last Admin: 11/28/17 00:18 Dose: 40 mg Sodium Chloride (Ns Inj) 1,000 mls @ 100 mls/hr IV.CONT .Q10H [facility] Last Admin: 11/28/17 12:38 Dose: 100 mls/hr Daptomycin 600 mg/ Sodium (Chloride) 100 mls @ 200 mls/hr IV.SIG Q24H [facility] Ketorolac Tromethamine (Toradol Inj) 30 mg IV.PUSH Q6H PRN PRN Reason: PAIN 6-10;IF UNABLE TO TAKE PO Stop: 12/03/17 08:59 Last Admin: 11/28/17 10:30 Dose: 30 mg Lactulose (Lactulose Liq) 30 ml PO DAILY PRN PRN Reason: SEVERE CONSITIPATION Miscellaneous Information ([facility] Ordered Lab Info) 0 each OTHER ONCE ONE Stop: 11/30/17 03:46 Naloxone HCl (Narcan Inj) 0.4 mg IV.PUSH UNSCH PRN PRN Reason: SEE LABEL COMMENTS Sennosides (Senokot) 17.2 mg PO Q12H PRN PRN Reason: Moderate Constipation Allergies Allergy/AdvReac Type Severity Reaction Status Date / Time No Known Allergies Allergy Unverified 11/13/17 09:36 Home Medications Medication Instructions Recorded Confirmed Type Unable to Obtain Home Meds 11/27/17 11/27/17 History Exam Vital signs: Vital Signs 11/27/17 21:16 11/27/17 22:02 11/27/17 22:04 Temperature 102.7 F H Pulse Rate 124 H 114 H 114 H Respiratory Rate 20 16 Blood Pressure 166/70 H 128/72 Pulse Oximetry 95 97 11/28/17 00:08 11/28/17 01:21 11/28/17 02:03 Temperature 99 F 97.7 F Pulse Rate 108 H 81 Respiratory Rate 22 17 Blood Pressure 132/70 95/52 L Pulse Oximetry 98 96 97 11/28/17 02:30 11/28/17 08:00 11/28/17 11:27 Temperature 97.7 F 98.1 F 98.2 F Pulse Rate 80 77 70 Respiratory Rate 17 16 17 Blood Pressure 95/52 L 111/61 122/63 Pulse Oximetry 97 96 96 Intake & Output 11/27/17 11/28/17 11/28/17 18:59 06:59 18:59 Intake Total 600 / 600 1000 / 1000 Output Total 1000 / 1000 Balance -400 / -400 1000 / 1000 Weight 65.4 kg Intake: IV 200 / 200 1000 / 1000 NS Inj 1,000 ML @ 100 mls/hr IV 1000 / 1000 .CONT .Q10H [facility] Rx#:[id number] Vancomycin Inj 1 gm In 200 ml @ 200 / 200 200 mls/hr IV.SIG [facility] Rx#:[id number] Oral 400 / 400 Output: Urine 1000 / 1000 Other: # Voids 1 # Bowel Movements 0 Narrative: Physical Examination GENERAL: Patient is a well-nourished, well-developed male, awake and alert, not in respiratory distress. SKIN: Warm and dry. Has dry eschar on his forehead and nose as will as in his LUE. No ecchymoses and no evidence of embolic lesions. HEAD: Atraumatic. Normocephalic. No temporal wasting, or tenderness. EYES: [place] conjunctiva. No petechia or hemorrhage. Pupils equal, round and reactive to light. Extraocular movements full and intact. No scleral icterus. No injection or drainage. EARS, NOSE AND THROAT: Nose without bleeding or purulent nasal discharge. No sinus tenderness. Mucous membranes pink and moist. No oral lesions noted. No exudate. No oral thrush. NECK: Trachea midline. Supple and not tender, no meningeal signs. Well healed incision on his neck from his last surgery CARDIOVASCULAR: Regular rate and rhythm. No murmurs, rubs or gallops heard RESPIRATORY: Clear to auscultation. Breath sounds equal bilaterally. No rales , wheezing or rhonchi ABDOMEN: Soft, non-tender, nondistended. Bowel sounds present and normoactive. No guarding. No rebound. No organomegaly. EXTREMITIES: No clubbing, cyanosis, or edema. No joint effusion, has good ROM. No calf tenderness. Well perfused and warm. NEUROLOGICAL: Awake and alert. Cranial nerves grossly intact. Motor grossly within normal limits. PSYCHIATRIC: Normal affect, calm and cooperative. LINE: PICC RUE No evidence of infection Results - Labs CBC & Chem 7: 11/27/17 22:06 11/27/17 22:06 Labs: Laboratory Results - last 24 hr 11/27/17 11/27/17 11/27/17 22:06 22:06 22:06 WBC 8.9 RBC 4.15 L Hgb 11.8 L Hct 34.3 L MCV 82.6 MCH 28.3 MCHC 34.3 RDW 13.1 Plt Count 173 MPV 7.8 Neut % (Auto) 82.5 H Lymph % (Auto) 11.1 [place] % (Auto) 5.7 Eos % (Auto) 0.1 Baso % (Auto) 0.6 Neut # (Auto) 7.4 Lymph # (Auto) 1.0 [place] # (Auto) 0.5 Eos # (Auto) 0.0 Baso # (Auto) 0.1 WBC Differential . Differential Comment Auto diff final Sodium 129 L Potassium 3.3 L Chloride 94 L Carbon Dioxide 22.2 Anion Gap 13 BUN 10 Creatinine 0.83 Estimated GFR Greater than 89 POC Glucose Random Glucose 105 Lactic Acid 1.1 Calcium 9.0 Total Bilirubin 1.1 H AST 22 ALT 25 Alkaline Phosphatase 91 Total Protein 8.3 H Albumin 3.1 L Urine Color Urine Clarity Urine pH Ur Specific [place] Urine Protein Urine Glucose (UA) Urine Ketones Urine Occult Blood Urine Nitrate Urine Bilirubin Urine Urobilinogen Ur Leukocyte Esterase Urine RBC Urine WBC Urine Bacteria Hyaline Casts Urine Mucus Micro UA Comment Urine Culture Comments 11/27/17 11/28/17 23:30 10:35 WBC RBC Hgb Hct MCV MCH MCHC RDW Plt Count MPV Neut % (Auto) Lymph % (Auto) [place] % (Auto) Eos % (Auto) Baso % (Auto) Neut # (Auto) Lymph # (Auto) [place] # (Auto) Eos # (Auto) Baso # (Auto) WBC Differential Differential Comment Sodium Potassium Chloride Carbon Dioxide Anion Gap BUN Creatinine Estimated GFR POC Glucose 144 H Random Glucose Lactic Acid Calcium Total Bilirubin AST ALT Alkaline Phosphatase Total Protein Albumin Urine Color Yellow Urine Clarity Clear Urine pH 7.0 Ur Specific [place] 1.023 Urine Protein 100 H Urine Glucose (UA) Negative Urine Ketones Trace Urine Occult Blood Small H Urine Nitrate Negative Urine Bilirubin Negative Urine Urobilinogen 4 or greater Ur Leukocyte Esterase Negative Urine RBC 4 H Urine WBC 3 Urine Bacteria Rare H Hyaline Casts 1 Urine Mucus Few H Micro UA Comment Culture not ind Urine Culture Comments Culture not ind - Imaging Impressions Chest X-Ray 11/27/17 22:01 CONCLUSION: Left base infiltrate Cervical Spine CT 11/27/17 22:02 CONCLUSION: No acute bony process in the cervical spine. Chest X-Ray 11/28/17 00:00 CONCLUSION: There continues to be a patchy infiltrate in the left lower lung without significant change versus slightly increased compared to the prior study. Assessment and Plan - Plan Impression Sepsis, with GPC in BC, likely related to his PICC, likely him using his PICC for IVDU - suspicious for IE Hx cervical discitis, epidural abscess, S/P surgery L base infiltrate, ?septic emboli Recommendation Repeat 2 BC Remove PICC and send tip for C/S UDS IV vanco Follow temps Follow C/S Monitor progress Will determine course of Rx once workup is completed I will follow along with you Thank you for this consultation D/W RN D/[facility] Willson ([facility])
[2017-11-28] MEDS ORDERED: DAPTOmycin Inj 600 MG in Sodium Chlor 0.9% Inj 100 ML IV.SIG SCH (16:00)
[2017-11-28] MEDS ORDERED: Vancomycin Inj 1,250 MG in Sodium Chlor 0.9% Inj 250 ML IV.SIG SCH (16:00)
[2017-11-28 22:19] LABS: Amphetamine Screen,Urine Neg (Neg); Barbiturate Screen,Urine Neg (Neg); Cannabinoid Screen,Urine Neg (Neg); Cocaine Screen,Urine Pos (Neg)
[2017-11-28 22:23] LABS: Opiate Screen,Urine Pos (Neg)
[2017-11-29] MEDS: Enoxaparin Inj 40 MG/0.4 ML Syringe SQ SCH (00:49)
[2017-11-29] MEDS ORDERED: Vancomycin Consult Pharmacy 1 EACH OTHER SCH (01:15)
[2017-11-29 02:23] LABS: Creatine Kinase 43 U/L (39-308)
[2017-11-29] MEDS: Vancomycin Inj 1,250 MG in Sodium Chlor 0.9% Inj 250 ML IV.SIG SCH ×2 (03:28→13:00)
[2017-11-29] MEDS: Sod Chloride 0.9% Inj 1,000 ML IV.CONT SCH (03:29)
--- NOTE | 2017-11-29 09:51 | P.PNIM ---
Subjective Interval history: Still complaining of left-sided chest pain radiating to the left shoulder, no fever overnight, discussed results of exams. Blood culture positive for MRSA. Physical Exam Vital signs: Vital Signs 11/28/17 11:27 11/28/17 15:28 11/28/17 15:46 Temperature 98.2 F 98.1 F Pulse Rate 70 73 69 Respiratory Rate 17 17 Blood Pressure 122/63 118/69 Pulse Oximetry 96 95 11/28/17 16:00 11/28/17 20:00 11/28/17 20:35 Temperature 98.1 F Pulse Rate 73 71 Respiratory Rate 21 16 Blood Pressure 103/57 L Pulse Oximetry 95 96 11/29/17 00:00 11/29/17 00:48 11/29/17 01:06 Temperature 98.2 F 100.2 F H Pulse Rate 84 90 Respiratory Rate 18 0 L 20 Blood Pressure 111/58 L 123/68 Pulse Oximetry 98 11/29/17 01:07 11/29/17 04:00 11/29/17 08:00 Temperature 97.8 F 97.9 F Pulse Rate 76 66 Respiratory Rate 18 16 Blood Pressure 115/59 L 114/67 Pulse Oximetry 98 97 97 11/29/17 08:29 Temperature Pulse Rate 64 Respiratory Rate Blood Pressure Pulse Oximetry Intake & Output 11/28/17 11/29/17 11/29/17 18:59 06:59 18:59 Intake Total 1000 / 1000 1000 / 1000 Balance 1000 / 1000 1000 / 1000 Weight 66 kg Intake: IV 1000 / 1000 1000 / 1000 NS Inj 1,000 ML @ 100 mls/hr IV 1000 / 1000 1000 / 1000 .CONT .Q10H [facility] Rx#:[id number] Narrative: 9 distress Pupils equal reactive to light Regular rate and rhythm, no murmurs Clear breath sounds Abdomen soft nontender No edema, mild tenderness on palpation of the cervical area Numerous crusting lesions in the glabellar area and the bridge with scattered crusting eschars bilateral dorsal forearm Awake alert and oriented 3, no focal deficits, ambulatory. Results - Labs CBC & Chem 7: 11/27/17 22:06 11/27/17 22:06 Laboratory Results - last 24 hr 11/28/17 11/28/17 11/29/17 10:35 20:40 01:45 POC Glucose 144 H Total Creatine Kinase 43 Troponin I Less than 0.02 L Urine Opiates Screen Pos H Ur Barbiturates Screen Neg Ur Amphetamines Screen Neg U Benzodiazepines Scrn Neg Urine Cocaine Screen Pos U Cannabinoids Screen Neg Microbiology 11/27/17 22:06 Blood - Peripheral Aerobic Blood Culture - Preliminary S. aureus MRSA 11/27/17 22:06 Blood - Peripheral Anaerobic Blood Culture - Preliminary gram positive cocci 11/27/17 22:00 Blood - Peripheral Aerobic Blood Culture - Preliminary gram positive cocci 11/27/17 22:00 Blood - Peripheral Anaerobic Blood Culture - Preliminary gram positive cocci - Imaging Impressions Chest X-Ray 11/28/17 00:00 CONCLUSION: There continues to be a patchy infiltrate in the left lower lung without significant change versus slightly increased compared to the prior study. Assessment and Plan - Plan This is a 32-year-old male with history of IV drug use, recently diagnosed colitis status post surgery, discharged on Cubicin, readmitted for fever. Sepsis, MRSA bacteremia-blood cultures drawn growing MRSA, infectious disease following, started on vancomycin. PICC line removed, PICC tip sent for culture. Patient denies any IV drug use through his PICC line. No leukocytosis. Temperature on admission was 102.7 with heart rate of 124,, respiratory rate of 20. Presently, leukocytosis has resolved. -Check echocardiogram, CT scan of the cervical spine unremarkable. Left lower lobe pneumonia-chest x-ray showed left lower lobe infiltrate, likely from pneumonia versus metastatic seeding of ninfection. Cervical Discitis-status post discectomy during previous admission, antibiotics as above, continue Stella for pain control with NSAIDs. Hyponatremia-sodium 129, pending BMP. Hypokalemia-replaced, pending BMP. DVT prophylaxis: Low risk, Lovenox.
--- NOTE | 2017-11-29 10:19 | ECG ---
Date Performed: 11/29/2017 Time Performed: 02:16:44 PTAGE: 32 years EKG: Sinus rhythm Poor R wave progression - probable normal variant Septal T wave changes are nonspecific Borderline E CG NO PREVIOUS TRACING DOCTOR: Walter Shepherd Interpretating Date/Time 11/29/2017 10:19:07
--- NOTE | 2017-11-29 18:11 | CT ---
EXAM DATE: 11/29/2017 6:05 PM EDT AGE/SEX: 32 years / Male INDICATIONS: Abdomen pain. Evaluate for septic emboli. CLINICAL DATA: This is the patient's initial encounter. Patient reports that signs and symptoms have been present for 1 day and indicates a pain score of 0/10. MEDICAL/SURGICAL HISTORY: . IV drug user Discectomy, cervical. Fusion, lumbar. ORAL CONTRAST: No oral contrast ingested. RADIATION DOSE: 8.33 CTDI (mGy) ; Combined studies COMPARISON: No prior exams available for comparison. TECHNIQUE: Multiple contiguous axial images were obtained through the abdomen and pelvis following b olus infusion of 95 ml Omnipaque 350 (iohexol) nonionic water-soluble contrast as a cumulative dose for multiple exams. No oral contrast ingested. Using automated exposure control and adjustment of t he mA and/or kV according to patient size, radiation dose was kept as low as reasonably achievable to obtain optimal diagnostic quality images. DICOM format image data is available electronically for r eview and comparison. FINDINGS: There are small bilateral pleural effusions and some dependent atelectasis and consolidation in the l ungs heart size is mildly enlarged. Mild fatty liver enlarged to 22.8 cm in length. Spleen enlarged to 15.6 cm in length. No acute findings in the kidneys, adrenals or pancreas. This previous fixation across a mild compress ion fracture of L2. No bowel obstruction. No free air or free fluid. No loculated fluid to suggest abscess within the abd omen and pelvis. CONCLUSION: 1. Small bilateral pleural effusions with dependent atelectasis in the lungs. 2. Hepatosplenomegaly. 3. Fixation across mild compression deformity of L2. 4. No abscess identified within the abdomen and pelvis. Electronically signed by: Dave Drew MD 11/29/2017 6:10 PM EDT
--- NOTE | 2017-11-29 18:12 | P.PNID ---
Subjective Remarks: Patient is a 32-year-old male, with known history of IV drug use, presented to the hospital complaining of fever and chills, and left-sided chest pain. This is been going on for several days. He denies any significant cough or congestion. He has not had any nausea or vomiting or any diarrhea or urinary complaints. His history is significant for a diagnosis of C5-C6 discitis and epidural abscess for which she was hospitalized October 18 - October 26. At that time cultures were negative, but the patient was on IV antibiotics for at least 2-3 days before he had surgery. All his blood cultures were negative. Patient was discharge and arrangements were made for patient to get IV antibiotics at the infusion clinic. He was on an oral quinolone, and IV Cubicin. His PICC line got dislodged, and it was change on October 27. Patient missed most of his IV antibiotic treatment. The last time he was seen in the infusion clinic was November 13. He claims that he did not have any transportation that is why he was not able to go to the clinic. Patient denies using his PICC line for drugs but he admits to using IV drugs. Since admission he has had fevers on the first hospital day, and he is afebrile today. He is complaining of left-sided chest pain. His blood cultures are now reported as growing gram-positive cocci. Chest x-ray showing a left base infiltrate. CT of the cervical spine is unremarkable with no evidence of abscess. Patient still has his PICC line in the right upper extremity. Infectious disease consultation has been requested to assist with evaluation and treatment of fever and sepsis. Overnight events reviewed Reports low-grade fevers occasional chills No rash No diarrhea PICC line was removed and cultures positive for pending. Blood cultures positive for MRSA Complains of chest pain radiating to his left shoulder Antibiotics: Vancomycin IV Lines: Lines okay Past Medical History: Reviewed. Allergies/Adverse Reactions: Allergies No Known Allergies Allergy (Unverified 11/13/17 09:36) Objective Vital Signs 11/28/17 20:00 11/28/17 20:35 11/29/17 00:00 Temperature 98.1 F 98.2 F Pulse Rate 71 84 Respiratory Rate 21 16 18 Blood Pressure 103/57 L 111/58 L Pulse Oximetry 96 98 11/29/17 00:48 11/29/17 01:06 11/29/17 01:07 Temperature 100.2 F H Pulse Rate 90 Respiratory Rate 0 L 20 Blood Pressure 123/68 Pulse Oximetry 98 11/29/17 04:00 11/29/17 08:00 11/29/17 08:29 Temperature 97.8 F 97.9 F Pulse Rate 76 66 64 Respiratory Rate 18 16 Blood Pressure 115/59 L 114/67 Pulse Oximetry 97 97 11/29/17 11:40 11/29/17 14:08 11/29/17 16:00 Temperature 97.9 F 97.3 F L Pulse Rate 65 77 75 Respiratory Rate 17 18 Blood Pressure 111/68 120/67 Pulse Oximetry 98 96 Intake & Output 11/28/17 11/29/17 11/29/17 18:59 06:59 18:59 Intake Total 1000 / 1000 1000 / 1000 262.5 / 262.5 Balance 1000 / 1000 1000 / 1000 262.5 / 262.5 Weight 66 kg Intake: IV 1000 / 1000 1000 / 1000 262.5 / 262.5 NS Inj 1,000 ML @ 100 mls/hr IV 1000 / 1000 1000 / 1000 .CONT .Q10H [facility] Rx#:[id number] Vancomycin Inj 1,250 MG In NS 262.5 / 262.5 Inj 250 ML @ 250 mls/hr IV.SIG Q12H [facility] Rx#:[id number] Other: Date of Last Bowel Movement 11/28/17 11/28/17 15:37 Catheter Tip - Central Venous Line Wound Culture - Preliminary Staphylococcus species 11/27/17 22:00 Blood - Peripheral Aerobic Blood Culture - Preliminary S. aureus MRSA 11/27/17 22:00 Blood - Peripheral Anaerobic Blood Culture - Preliminary gram positive cocci 11/27/17 22:06 Blood - Peripheral Aerobic Blood Culture - Preliminary S. aureus MRSA 11/27/17 22:06 Blood - Peripheral Anaerobic Blood Culture - Preliminary S. aureus MRSA Lab - Hematology Results 11/27/17 22:06 WBC 8.9 RBC 4.15 L Hgb 11.8 L Hct 34.3 L MCV 82.6 MCH 28.3 MCHC 34.3 RDW 13.1 Plt Count 173 MPV 7.8 Neut % (Auto) 82.5 H Lymph % (Auto) 11.1 [place] % (Auto) 5.7 Eos % (Auto) 0.1 Baso % (Auto) 0.6 Neut # (Auto) 7.4 Lymph # (Auto) 1.0 [place] # (Auto) 0.5 Eos # (Auto) 0.0 Baso # (Auto) 0.1 WBC Differential . Differential Comment Auto diff final Lab - Chemistry Results 11/27/17 11/27/17 11/28/17 22:06 22:06 10:35 Sodium 129 L Potassium 3.3 L Chloride 94 L Carbon Dioxide 22.2 Anion Gap 13 BUN 10 Creatinine 0.83 Estimated GFR Greater than 89 POC Glucose 144 H Random Glucose 105 Lactic Acid 1.1 Calcium 9.0 Total Bilirubin 1.1 H AST 22 ALT 25 Alkaline Phosphatase 91 Total Creatine Kinase Troponin I Total Protein 8.3 H Albumin 3.1 L 11/29/17 01:45 Sodium Potassium Chloride Carbon Dioxide Anion Gap BUN Creatinine Estimated GFR POC Glucose Random Glucose Lactic Acid Calcium Total Bilirubin AST ALT Alkaline Phosphatase Total Creatine Kinase 43 Troponin I Less than 0.02 L Total Protein Albumin Imaging: ITS Impressions Cervical Spine CT 11/27/17 22:02 CONCLUSION: No acute bony process in the cervical spine. Chest X-Ray 11/28/17 00:00 CONCLUSION: There continues to be a patchy infiltrate in the left lower lung without significant change versus slightly increased compared to the prior study. Physical Exam: GENERAL: Well-nourished well-developed, not in acute distress SKIN: Cool and dry, no generalized rash. Bruising and scabs noted on the face. HEAD: Atraumatic. Normocephalic. No temporal or scalp tenderness. EYES: Pupils equal round and reactive. Scleral icterus. No injection or drainage. No petechia ENT: Nothing abnormal detected NECK: Trachea midline. Supple, nontender, no meningeal signs. CARDIOVASCULAR: HS audible. RESPIRATORY: Air entry decreased in the bases bilaterally left more than right. GASTROINTESTINAL: Abdomen soft nontender. MUSCULOSKELETAL: Extremities without clubbing, cyanosis. NEUROLOGICAL: Alert oriented 3. Nonfocal. Psych cooperative IV line sites ok. PICC line sites okay. Assessment and Plan - Plan Impression Sepsis, with GPC in BC, likely related to his PICC, likely him using his PICC for IVDU - suspicious for IE Hx cervical discitis, epidural abscess, S/P surgery L base infiltrate, ?septic emboli Recommendation Repeat 2 BC Follow PICC tip for cultures Continue IV Vanco CT chest abdomen pelvis with contrast to look for any evidence of septic emboli in the lungs that could explain his chest pain as well as pain radiating to the shoulder. Follow temps Follow C/S D/W RN Dr. Jay to resume care on Friday, December 01, 2017.
--- NOTE | 2017-11-29 18:14 | CT ---
EXAM DATE: 11/29/2017 6:07 PM EDT AGE/SEX: 32 years / Male INDICATIONS: Pneumonia. Evaluate for septic emboli. CLINICAL DATA: This is the patient's initial encounter. Patient reports that signs and symptoms have been present for 1 day and indicates a pain score of 0/10. MEDICAL/SURGICAL HISTORY: . IV drug user Discectomy, cervical. Fusion, lumbar. RADIATION DOSE: 8.22 CTDI (mGy) ; Combined studies COMPARISON: No prior exams available for comparison. TECHNIQUE: Multiple contiguous axial images were obtained through the chest during bolus infusion of 95 ml Omnipaque 350 (iohexol) nonionic water-soluble contrast as a cumulative dose for multiple exa ms. Images were obtained in suspended respiration using multiple row detector helical technique. U sing automated exposure control and adjustment of the mA and/or kV according to patient size, radiati on dose was kept as low as reasonably achievable to obtain optimal diagnostic quality images. DICOM format image data is available electronically for review and comparison. FINDINGS: There are 2 peripheral somewhat wedge-shaped consolidation in the right upper lobe largest anteriorly measuring around 2.9 cm in diameter with some early cavitation. Also smaller wedge-shaped opacity [place] perior segment left lower lobe and by basilar opacities are peripheral and somewhat wedge-shaped in n ature as well. Findings are most characteristic of septic embolic disease. Trace bilateral pleural effusions with some dependent atelectasis in the lungs. No acute bony abnorma lities. CONCLUSION: 1. Multiple peripheral wedge-shaped consolidations in the lungs with some early cavitation in the an terior segment right upper lobe. Findings are most characteristic of septic embolic disease. 2. Small bilateral pleural effusions. No pericardial fluid. Electronically signed by: Dave Drew MD 11/29/2017 6:13 PM EDT
[2017-11-29 20:38] LABS: Baso % (Auto) 0.3 % (0.0-2.0); Eos % (Auto) 0.3 % (0.0-4.0); Hematocrit 34.9 % (39.0-51.0); Hemoglobin 11.9 gm/dL (13.0-17.0); Lymph % (Auto) 19.4 % (9.0-44.0); Mean Corpuscular Hemoglobin 28.1 pg (27.0-34.0); Mean Corpuscular Volume 82.6 fL (80.0-100.0); Mean Platelet Volume 7.8 fL (7.0-11.0); Mono # (Auto) 0.7 th/mm3 (0.0-0.9); Mono % (Auto) 6.7 % (0.0-8.0); Neut # (Auto) 7.5 th/mm3 (1.8-7.7); Neut % (Auto) 73.3 % (16.0-70.0); Platelet Count 259 th/mm3 (150-450); Red Blood Count 4.22 mil/mm3 (4.50-5.90); Red Cell Distribution Width 13.5 % (11.6-17.2); White Blood Count 10.3 th/mm3 (4.0-11.0)
[2017-11-29 21:02] LABS: Albumin 2.4 g/dL (3.4-5.0); Anion Gap 12 meq/L (5-15); Blood Urea Nitrogen 5 mg/dL (7-18); Calcium 8.3 mg/dL (8.5-10.1); Carbon Dioxide 21.5 meq/L (21.0-32.0); Chloride 105 meq/L (98-107); Glomerular Filtration Rate Greater Than 89 mL/min (>89); Glucose,Random 107 mg/dL (74-106); Potassium 3.4 meq/L (3.5-5.1); Sodium 138 meq/L (136-145)
[2017-11-29 21:03] LABS: Alanine Aminotransferase 16 U/L (12-78); Aspartate Aminotransferase 12 U/L (15-37)
[2017-11-29 21:06] LABS: Alkaline Phosphatase 78 U/L (45-117)
[2017-11-30] MEDS: Enoxaparin Inj 40 MG/0.4 ML Syringe SQ SCH ×2 (01:00→23:19)
[2017-11-30] MEDS ORDERED: Pharmacy Ordered Lab Info OTHER ONE (01:45)
[2017-11-30] MEDS: Sod Chloride 0.9% Inj 1,000 ML IV.CONT SCH ×2 (02:04→17:55)
[2017-11-30] MEDS: Vancomycin Inj 1,250 MG in Sodium Chlor 0.9% Inj 250 ML IV.SIG SCH ×3 (02:06→20:31)
[2017-11-30 08:15] LABS: Anion Gap 11 meq/L (5-15); Blood Urea Nitrogen 4 mg/dL (7-18); Calcium 8.8 mg/dL (8.5-10.1); Carbon Dioxide 22.3 meq/L (21.0-32.0); Chloride 105 meq/L (98-107); Glomerular Filtration Rate Greater Than 89 mL/min (>89); Glucose,Random 103 mg/dL (74-106); Potassium 3.7 meq/L (3.5-5.1); Sodium 138 meq/L (136-145)
--- NOTE | 2017-11-30 14:30 | P.PNID ---
Subjective Remarks: Patient is a 32-year-old male, with known history of IV drug use, presented to the hospital complaining of fever and chills, and left-sided chest pain. This is been going on for several days. He denies any significant cough or congestion. He has not had any nausea or vomiting or any diarrhea or urinary complaints. His history is significant for a diagnosis of C5-C6 discitis and epidural abscess for which she was hospitalized October 18 - October 26. At that time cultures were negative, but the patient was on IV antibiotics for at least 2-3 days before he had surgery. All his blood cultures were negative. Patient was discharge and arrangements were made for patient to get IV antibiotics at the infusion clinic. He was on an oral quinolone, and IV Cubicin. His PICC line got dislodged, and it was change on October 27. Patient missed most of his IV antibiotic treatment. The last time he was seen in the infusion clinic was November 13. He claims that he did not have any transportation that is why he was not able to go to the clinic. Patient denies using his PICC line for drugs but he admits to using IV drugs. Since admission he has had fevers on the first hospital day, and he is afebrile today. He is complaining of left-sided chest pain. His blood cultures are now reported as growing gram-positive cocci. Chest x-ray showing a left base infiltrate. CT of the cervical spine is unremarkable with no evidence of abscess. Patient still has his PICC line in the right upper extremity. Infectious disease consultation has been requested to assist with evaluation and treatment of fever and sepsis. Overnight events reviewed Reports low-grade fevers occasional chills No rash No diarrhea PICC line Blood cultures positive for MRSA, GNR Complains of chest pain radiating to his left shoulder Denies abusing PICC line. Antibiotics: Vancomycin IV Lines: Lines okay Past Medical History: Reviewed. Allergies/Adverse Reactions: Allergies No Known Allergies Allergy (Unverified 11/13/17 09:36) Objective Vital Signs 11/29/17 16:00 11/29/17 20:00 11/29/17 21:10 Temperature 97.3 F L 97.9 F Pulse Rate 75 87 Respiratory Rate 18 18 18 Blood Pressure 120/67 130/70 Pulse Oximetry 96 98 11/30/17 00:00 11/30/17 00:57 11/30/17 01:00 Temperature 98.7 F Pulse Rate 54 L Respiratory Rate 18 18 Blood Pressure 131/71 Pulse Oximetry 95 11/30/17 02:59 11/30/17 04:00 11/30/17 08:00 Temperature 97.6 F 98.4 F Pulse Rate 66 59 L Respiratory Rate 18 18 20 Blood Pressure 120/73 123/68 Pulse Oximetry 98 96 11/30/17 09:36 11/30/17 12:00 11/30/17 12:50 Temperature 97.5 F L Pulse Rate 66 Respiratory Rate 18 20 18 Blood Pressure 126/80 Pulse Oximetry 98 Intake & Output 11/29/17 11/30/17 11/30/17 18:59 06:59 18:59 Intake Total 525.0 / 525.0 262.5 / 262.5 Balance 525.0 / 525.0 262.5 / 262.5 Weight 65.1 kg Intake: IV 525.0 / 525.0 262.5 / 262.5 NS Inj 1,000 ML @ 100 mls/hr IV 0 / 0 .CONT .Q10H JOYCE Rx#:[id number] Vancomycin Inj 1,250 MG In NS 525.0 / 525.0 262.5 / 262.5 Inj 250 ML @ 250 mls/hr IV.SIG Q12H JOYCE Rx#:[id number] Other: # Voids 2 Date of Last Bowel Movement 11/28/17 11/28/17 11/27/17 22:00 Blood - Peripheral Aerobic Blood Culture - Final S. aureus MRSA 11/27/17 22:00 Blood - Peripheral Anaerobic Blood Culture - Final S. aureus MRSA 11/27/17 22:06 Blood - Peripheral Aerobic Blood Culture - Final S. aureus MRSA 11/27/17 22:06 Blood - Peripheral Anaerobic Blood Culture - Final S. aureus MRSA 11/29/17 20:06 Blood - Peripheral Aerobic Blood Culture - Preliminary No growth in 1 day 11/29/17 20:06 Blood - Peripheral Anaerobic Blood Culture - Preliminary No growth in 1 day 11/29/17 20:00 Blood - Peripheral Aerobic Blood Culture - Preliminary No growth in 1 day 11/29/17 20:00 Blood - Peripheral Anaerobic Blood Culture - Preliminary No growth in 1 day 11/28/17 15:37 Catheter Tip - Central Venous Line Wound Culture - Preliminary S. aureus MRSA gram negative rods Corynebacterium species 11/30/17 07:04 Blood - Peripheral Aerobic Blood Culture - Pending 11/30/17 07:04 Blood - Peripheral Anaerobic Blood Culture - Pending Lab - Hematology Results 11/29/17 20:06 WBC 10.3 RBC 4.22 L Hgb 11.9 L Hct 34.9 L MCV 82.6 MCH 28.1 MCHC 34.0 RDW 13.5 Plt Count 259 D MPV 7.8 Neut % (Auto) 73.3 H Lymph % (Auto) 19.4 [place] % (Auto) 6.7 Eos % (Auto) 0.3 Baso % (Auto) 0.3 Neut # (Auto) 7.5 Lymph # (Auto) 2.0 [place] # (Auto) 0.7 Eos # (Auto) 0.0 Baso # (Auto) 0.0 WBC Differential . Differential Comment Auto diff final Lab - Chemistry Results 11/29/17 11/29/17 11/30/17 01:45 20:06 07:04 Sodium 138 138 Potassium 3.4 L 3.7 Chloride 105 D 105 Carbon Dioxide 21.5 22.3 Anion Gap 12 11 BUN 5 L 4 L Creatinine 0.68 0.62 Estimated GFR Greater than 89 Greater than 89 Random Glucose 107 H 103 Calcium 8.3 L 8.8 Total Bilirubin 0.3 AST 12 L ALT 16 Alkaline Phosphatase 78 Total Creatine Kinase 43 Troponin I Less than 0.02 L Total Protein 7.0 D Albumin 2.4 L D Imaging: ITS Impressions Cervical Spine CT 11/27/17 22:02 CONCLUSION: No acute bony process in the cervical spine. Chest X-Ray 11/28/17 00:00 CONCLUSION: There continues to be a patchy infiltrate in the left lower lung without significant change versus slightly increased compared to the prior study. Abdomen/Pelvis CT 11/29/17 00:00 CONCLUSION: 1. Small bilateral pleural effusions with dependent atelectasis in the lungs. 2. Hepatosplenomegaly. 3. Fixation across mild compression deformity of L2. 4. No abscess identified within the abdomen and pelvis. Chest CT 11/29/17 00:00 CONCLUSION: 1. Multiple peripheral wedge-shaped consolidations in the lungs with some early cavitation in the anterior segment right upper lobe. Findings are most characteristic of septic embolic disease. 2. Small bilateral pleural effusions. No pericardial fluid. Physical Exam: GENERAL: Well-nourished well-developed, not in acute distress SKIN: Cool and dry, no generalized rash. Bruising and scabs noted on the face. HEAD: Atraumatic. Normocephalic. No temporal or scalp tenderness. EYES: Pupils equal round and reactive. Scleral icterus. No injection or drainage. No petechia ENT: Nothing abnormal detected NECK: Trachea midline. Supple, nontender, no meningeal signs. CARDIOVASCULAR: HS audible. RESPIRATORY: Air entry decreased in the bases bilaterally left more than right. GASTROINTESTINAL: Abdomen soft nontender. MUSCULOSKELETAL: Extremities without clubbing, cyanosis. NEUROLOGICAL: Alert oriented 3. Nonfocal. Psych cooperative IV line sites ok. PICC line sites okay. Assessment and Plan - Plan Impression Sepsis, with GPC in BC, likely related to his PICC, likely him using his PICC for IVDU - suspicious for IE Hx cervical discitis, epidural abscess, S/P surgery L base infiltrate, ?septic emboli Recommendation Repeat 2 BC Follow PICC tip for cultures Continue IV Vanco (target 15-20) Add Cefepime IV 2 gm q8hrs Follow cultures follow clinically. CT chest abdomen pelvis with evidence of septic emboli and cavities. If left shoulder pain persists or decrease in ROM consider MRI left shoulder. For now has full ROM at Left shoulder joint with no obvious clinical signs of infection. shayy Fischer. Dr. Jay to resume care on Friday, December 01, 2017.
--- NOTE | 2017-11-30 14:56 | P.PNIM ---
Subjective Interval history: No overnight events, afebrile, left-sided chest pain stable. Denies any headache. Echocardiogram pending. On room air. Physical Exam Vital signs: Vital Signs 11/29/17 16:00 11/29/17 20:00 11/29/17 21:10 Temperature 97.3 F L 97.9 F Pulse Rate 75 87 Respiratory Rate 18 18 18 Blood Pressure 120/67 130/70 Pulse Oximetry 96 98 11/30/17 00:00 11/30/17 00:57 11/30/17 01:00 Temperature 98.7 F Pulse Rate 54 L Respiratory Rate 18 18 Blood Pressure 131/71 Pulse Oximetry 95 11/30/17 02:59 11/30/17 04:00 11/30/17 08:00 Temperature 97.6 F 98.4 F Pulse Rate 66 59 L Respiratory Rate 18 18 20 Blood Pressure 120/73 123/68 Pulse Oximetry 98 96 11/30/17 09:36 11/30/17 12:00 11/30/17 12:50 Temperature 97.5 F L Pulse Rate 66 Respiratory Rate 18 20 18 Blood Pressure 126/80 Pulse Oximetry 98 Intake & Output 11/29/17 11/30/17 11/30/17 18:59 06:59 18:59 Intake Total 525.0 / 525.0 262.5 / 262.5 Balance 525.0 / 525.0 262.5 / 262.5 Weight 65.1 kg Intake: IV 525.0 / 525.0 262.5 / 262.5 NS Inj 1,000 ML @ 100 mls/hr IV 0 / 0 .CONT .Q10H JOYCE Rx#:[id number] Vancomycin Inj 1,250 MG In NS 525.0 / 525.0 262.5 / 262.5 Inj 250 ML @ 250 mls/hr IV.SIG Q12H JOYCE Rx#:[id number] Other: # Voids 2 Date of Last Bowel Movement 11/28/17 11/28/17 Narrative: Not in distress Pupils equal reactive to light Regular rate and rhythm, no murmurs Clear breath sounds Abdomen soft nontender No edema, mild tenderness on palpation of the cervical area Numerous crusting lesions in the glabellar area and the bridge with scattered crusting eschars bilateral dorsal forearm Awake alert and oriented 3, no focal deficits, ambulatory. Results - Labs CBC & Chem 7: 11/29/17 20:06 11/30/17 07:04 Laboratory Results - last 24 hr 11/29/17 11/29/17 11/30/17 20:06 20:06 02:03 WBC 10.3 RBC 4.22 L Hgb 11.9 L Hct 34.9 L MCV 82.6 MCH 28.1 MCHC 34.0 RDW 13.5 Plt Count 259 D MPV 7.8 Neut % (Auto) 73.3 H Lymph % (Auto) 19.4 [place] % (Auto) 6.7 Eos % (Auto) 0.3 Baso % (Auto) 0.3 Neut # (Auto) 7.5 Lymph # (Auto) 2.0 [place] # (Auto) 0.7 Eos # (Auto) 0.0 Baso # (Auto) 0.0 WBC Differential . Differential Comment Auto diff final Sodium 138 Potassium 3.4 L Chloride 105 D Carbon Dioxide 21.5 Anion Gap 12 BUN 5 L Creatinine 0.68 Estimated GFR Greater than 89 Random Glucose 107 H Calcium 8.3 L Total Bilirubin 0.3 AST 12 L ALT 16 Alkaline Phosphatase 78 Total Protein 7.0 D Albumin 2.4 L D Vancomycin Trough 4.6 L 11/30/17 07:04 WBC RBC Hgb Hct MCV MCH MCHC RDW Plt Count MPV Neut % (Auto) Lymph % (Auto) [place] % (Auto) Eos % (Auto) Baso % (Auto) Neut # (Auto) Lymph # (Auto) [place] # (Auto) Eos # (Auto) Baso # (Auto) WBC Differential Differential Comment Sodium 138 Potassium 3.7 Chloride 105 Carbon Dioxide 22.3 Anion Gap 11 BUN 4 L Creatinine 0.62 Estimated GFR Greater than 89 Random Glucose 103 Calcium 8.8 Total Bilirubin AST ALT Alkaline Phosphatase Total Protein Albumin Vancomycin Trough Microbiology 11/27/17 22:00 Blood - Peripheral Aerobic Blood Culture - Final S. aureus MRSA 11/27/17 22:00 Blood - Peripheral Anaerobic Blood Culture - Final S. aureus MRSA 11/27/17 22:06 Blood - Peripheral Aerobic Blood Culture - Final S. aureus MRSA 11/27/17 22:06 Blood - Peripheral Anaerobic Blood Culture - Final S. aureus MRSA 11/29/17 20:06 Blood - Peripheral Aerobic Blood Culture - Preliminary No growth in 1 day 11/29/17 20:06 Blood - Peripheral Anaerobic Blood Culture - Preliminary No growth in 1 day 11/29/17 20:00 Blood - Peripheral Aerobic Blood Culture - Preliminary No growth in 1 day 11/29/17 20:00 Blood - Peripheral Anaerobic Blood Culture - Preliminary No growth in 1 day 11/28/17 15:37 Catheter Tip - Central Venous Line Wound Culture - Preliminary S. aureus MRSA gram negative rods Corynebacterium species - Imaging Impressions Abdomen/Pelvis CT 11/29/17 00:00 CONCLUSION: 1. Small bilateral pleural effusions with dependent atelectasis in the lungs. 2. Hepatosplenomegaly. 3. Fixation across mild compression deformity of L2. 4. No abscess identified within the abdomen and pelvis. Chest CT 11/29/17 00:00 CONCLUSION: 1. Multiple peripheral wedge-shaped consolidations in the lungs with some early cavitation in the anterior segment right upper lobe. Findings are most characteristic of septic embolic disease. 2. Small bilateral pleural effusions. No pericardial fluid. Assessment and Plan - Plan This is a 32-year-old male with history of IV drug use, recently diagnosed colitis status post surgery, discharged on Cubicin, readmitted for fever. Sepsis, MRSA bacteremia-blood cultures drawn growing MRSA, infectious disease following, started on vancomycin. PICC line removed, PICC tip sent for culture. Patient denies any IV drug use through his PICC line. No leukocytosis. Temperature on admission was 102.7 with heart rate of 124,, respiratory rate of 20. Presently, leukocytosis has resolved. -Check echocardiogram, CT scan of the cervical spine unremarkable. CT scan of the chest showed septic emboli. Catheter tip culture grew MRSA, Corynebacterium and gram-negative rods, discussed with infectious disease, cefepime started. Might need MRI of the left shoulder if pain worsens and range of motion worsens. Left lower lobe pneumonia versus septic emboli-chest x-ray showed left lower lobe infiltrate, likely from pneumonia versus metastatic septic emboli. CT scan of the chest showed septic emboli in the left. Cervical Discitis-status post discectomy during previous admission, antibiotics as above, continue Sayre for pain control with NSAIDs. Hyponatremia-sodium 38, resolved. Hypokalemia-replaced, resolved. DVT prophylaxis: Low risk, Lovenox.
[2017-11-30] MEDS: Melatonin 5 MG Tablet PO PRN (23:24)
[2017-12-01] MEDS: Vancomycin Inj 1,250 MG in Sodium Chlor 0.9% Inj 250 ML IV.SIG SCH ×3 (05:13→23:14)
--- NOTE | 2017-12-01 09:57 | P.PNID ---
Subjective Remarks: Patient is a 32-year-old male, with known history of IV drug use, presented to the hospital complaining of fever and chills, and left-sided chest pain. This is been going on for several days. He denies any significant cough or congestion. He has not had any nausea or vomiting or any diarrhea or urinary complaints. His history is significant for a diagnosis of C5-C6 discitis and epidural abscess for which she was hospitalized October 18 - October 26. At that time cultures were negative, but the patient was on IV antibiotics for at least 2-3 days before he had surgery. All his blood cultures were negative. Patient was discharge and arrangements were made for patient to get IV antibiotics at the infusion clinic. He was on an oral quinolone, and IV Cubicin. His PICC line got dislodged, and it was change on October 27. Patient missed most of his IV antibiotic treatment. The last time he was seen in the infusion clinic was November 13. He claims that he did not have any transportation that is why he was not able to go to the clinic. Patient denies using his PICC line for drugs but he admits to using IV drugs. Since admission he has had fevers on the first hospital day, and he is afebrile today. He is complaining of left-sided chest pain. His blood cultures are now reported as growing gram-positive cocci. Chest x-ray showing a left base infiltrate. CT of the cervical spine is unremarkable with no evidence of abscess. Patient still has his PICC line in the right upper extremity. Infectious disease consultation has been requested to assist with evaluation and treatment of fever and sepsis. Notes reviewed Temps ok No rash No diarrhea PICC line Blood cultures positive for MRSA, GNR CT chest with septic emboli CT A/P ok Antibiotics: Cefepime Vancomycin IV Lines: Lines okay Past Medical History: Reviewed. Allergies/Adverse Reactions: Allergies No Known Allergies Allergy (Unverified 11/13/17 09:36) Objective Vital Signs 11/30/17 12:00 11/30/17 12:50 11/30/17 16:00 Temperature 97.5 F L 98.6 F Pulse Rate 66 95 H Respiratory Rate 20 18 20 Blood Pressure 126/80 125/80 Pulse Oximetry 98 98 11/30/17 18:30 11/30/17 20:00 11/30/17 20:06 Temperature 97.9 F Pulse Rate 85 98 H Respiratory Rate 18 18 Blood Pressure 126/80 Pulse Oximetry 100 12/01/17 00:00 12/01/17 04:00 12/01/17 08:00 Temperature 97.6 F 98.1 F 98.0 F Pulse Rate 66 77 71 Respiratory Rate 18 18 18 Blood Pressure 108/57 L 135/75 125/77 Pulse Oximetry 95 100 97 Intake & Output 11/30/17 12/01/17 12/01/17 18:59 06:59 18:59 Intake Total 1262.5 / 1262.5 462.5 / 462.5 Balance 1262.5 / 1262.5 462.5 / 462.5 Weight 65.3 kg Intake: IV 1262.5 / 1262.5 462.5 / 462.5 NS Inj 1,000 ML @ 100 mls/hr IV 1000 / 1000 .CONT .Q10H JOYCE Rx#:[id number] Maxipime Inj 2,000 MG In NS Inj 200 / 200 100 ML @ 200 mls/hr IV.SIG Q8H JOYCE Rx#:[id number] Vancomycin Inj 1,250 MG In NS 262.5 / 262.5 262.5 / 262.5 Inj 250 ML @ 250 mls/hr IV.SIG Q8H JOYCE Rx#:[id number] Other: # Voids 2 11/29/17 20:06 Blood - Peripheral Aerobic Blood Culture - Preliminary No growth in 1 day 11/29/17 20:06 Blood - Peripheral Anaerobic Blood Culture - Preliminary gram positive cocci 11/29/17 20:00 Blood - Peripheral Aerobic Blood Culture - Preliminary No growth in 1 day 11/29/17 20:00 Blood - Peripheral Anaerobic Blood Culture - Preliminary gram positive cocci 11/27/17 22:00 Blood - Peripheral Aerobic Blood Culture - Final S. aureus MRSA 11/27/17 22:00 Blood - Peripheral Anaerobic Blood Culture - Final S. aureus MRSA 11/27/17 22:06 Blood - Peripheral Aerobic Blood Culture - Final S. aureus MRSA 11/27/17 22:06 Blood - Peripheral Anaerobic Blood Culture - Final S. aureus MRSA 11/28/17 15:37 Catheter Tip - Central Venous Line Wound Culture - Preliminary S. aureus MRSA gram negative rods Corynebacterium species 11/30/17 07:04 Blood - Peripheral Aerobic Blood Culture - Pending 11/30/17 07:04 Blood - Peripheral Anaerobic Blood Culture - Pending Lab - Hematology Results 11/29/17 20:06 WBC 10.3 RBC 4.22 L Hgb 11.9 L Hct 34.9 L MCV 82.6 MCH 28.1 MCHC 34.0 RDW 13.5 Plt Count 259 D MPV 7.8 Neut % (Auto) 73.3 H Lymph % (Auto) 19.4 [place] % (Auto) 6.7 Eos % (Auto) 0.3 Baso % (Auto) 0.3 Neut # (Auto) 7.5 Lymph # (Auto) 2.0 [place] # (Auto) 0.7 Eos # (Auto) 0.0 Baso # (Auto) 0.0 WBC Differential . Differential Comment Auto diff final Lab - Chemistry Results 11/29/17 11/30/17 20:06 07:04 Sodium 138 138 Potassium 3.4 L 3.7 Chloride 105 D 105 Carbon Dioxide 21.5 22.3 Anion Gap 12 11 BUN 5 L 4 L Creatinine 0.68 0.62 Estimated GFR Greater than 89 Greater than 89 Random Glucose 107 H 103 Calcium 8.3 L 8.8 Total Bilirubin 0.3 AST 12 L ALT 16 Alkaline Phosphatase 78 Total Protein 7.0 D Albumin 2.4 L D Imaging: ITS Impressions Cervical Spine CT 11/27/17 22:02 CONCLUSION: No acute bony process in the cervical spine. Chest X-Ray 11/28/17 00:00 CONCLUSION: There continues to be a patchy infiltrate in the left lower lung without significant change versus slightly increased compared to the prior study. Abdomen/Pelvis CT 11/29/17 00:00 CONCLUSION: 1. Small bilateral pleural effusions with dependent atelectasis in the lungs. 2. Hepatosplenomegaly. 3. Fixation across mild compression deformity of L2. 4. No abscess identified within the abdomen and pelvis. Chest CT 11/29/17 00:00 CONCLUSION: 1. Multiple peripheral wedge-shaped consolidations in the lungs with some early cavitation in the anterior segment right upper lobe. Findings are most characteristic of septic embolic disease. 2. Small bilateral pleural effusions. No pericardial fluid. Physical Exam: GENERAL: Well-nourished well-developed, not in acute distress SKIN: Cool and dry, no generalized rash. Bruising and scabs noted on the face. HEAD: Atraumatic. Normocephalic. No temporal or scalp tenderness. EYES: Pupils equal round and reactive. Scleral icterus. No injection or drainage. No petechia ENT: Nothing abnormal detected NECK: Trachea midline. Supple, nontender, no meningeal signs. CARDIOVASCULAR: HS audible. RESPIRATORY: Air entry decreased in the bases bilaterally left more than right. GASTROINTESTINAL: Abdomen soft nontender. MUSCULOSKELETAL: Extremities without clubbing, cyanosis. NEUROLOGICAL: Alert oriented 3. Nonfocal. Psych cooperative IV line sites ok. Assessment and Plan - Plan Impression Sepsis, with MRSA, and one with GNR, likely related to his PICC, likely him using his PICC for IVDU - suspicious for IE Hx cervical discitis, epidural abscess, S/P surgery L base infiltrate, ?septic emboli Recommendation Repeat 2 BC Follow PICC tip for cultures Continue IV Vanco (target 15-20) Continue Cefepime IV 2 gm q8hrs Follow cultures Monitor progress
[2017-12-01 10:49] LABS: Baso % (Auto) 0.2 % (0.0-2.0); Eos # (Auto) 0.1 th/mm3 (0.0-0.4); Eos % (Auto) 0.5 % (0.0-4.0); Hematocrit 35.1 % (39.0-51.0); Hemoglobin 11.8 gm/dL (13.0-17.0); Lymph % (Auto) 17.4 % (9.0-44.0); Mean Corpuscular HGB Conc 33.6 % (32.0-36.0); Mean Corpuscular Hemoglobin 27.9 pg (27.0-34.0); Mean Platelet Volume 7.2 fL (7.0-11.0); Mono # (Auto) 0.5 th/mm3 (0.0-0.9); Mono % (Auto) 4.6 % (0.0-8.0); Neut # (Auto) 9.1 th/mm3 (1.8-7.7); Neut % (Auto) 77.3 % (16.0-70.0); Platelet Count 317 th/mm3 (150-450); Red Blood Count 4.23 mil/mm3 (4.50-5.90); Red Cell Distribution Width 13.3 % (11.6-17.2); White Blood Count 11.8 th/mm3 (4.0-11.0)
[2017-12-01 11:09] LABS: Alanine Aminotransferase 19 U/L (12-78); Albumin 2.5 g/dL (3.4-5.0); Anion Gap 11 meq/L (5-15); Aspartate Aminotransferase 16 U/L (15-37); Blood Urea Nitrogen 3 mg/dL (7-18); Calcium 8.4 mg/dL (8.5-10.1); Chloride 106 meq/L (98-107); Glomerular Filtration Rate Greater Than 89 mL/min (>89); Glucose,Random 107 mg/dL (74-106); Sodium 137 meq/L (136-145)
[2017-12-01 11:11] LABS: Alkaline Phosphatase 81 U/L (45-117); Total Protein 7.1 g/dL (6.4-8.2)
--- NOTE | 2017-12-01 11:23 | P.PN ---
Physical Exam Vital signs: Vital Signs 11/30/17 12:00 11/30/17 12:50 11/30/17 16:00 Temperature 97.5 F L 98.6 F Pulse Rate 66 95 H Respiratory Rate 20 18 20 Blood Pressure 126/80 125/80 Pulse Oximetry 98 98 11/30/17 18:30 11/30/17 20:00 11/30/17 20:06 Temperature 97.9 F Pulse Rate 85 98 H Respiratory Rate 18 18 Blood Pressure 126/80 Pulse Oximetry 100 12/01/17 00:00 12/01/17 04:00 12/01/17 08:00 Temperature 97.6 F 98.1 F 98.0 F Pulse Rate 66 77 71 Respiratory Rate 18 18 18 Blood Pressure 108/57 L 135/75 125/77 Pulse Oximetry 95 100 97 Intake & Output 11/30/17 12/01/17 12/01/17 18:59 06:59 18:59 Intake Total 1262.5 / 1262.5 462.5 / 462.5 Balance 1262.5 / 1262.5 462.5 / 462.5 Weight 65.3 kg Intake: IV 1262.5 / 1262.5 462.5 / 462.5 NS Inj 1,000 ML @ 100 mls/hr IV 1000 / 1000 .CONT .Q10H [facility] Rx#:[id number] Maxipime Inj 2,000 MG In NS Inj 200 / 200 100 ML @ 200 mls/hr IV.SIG Q8H [facility] Rx#:[id number] Vancomycin Inj 1,250 MG In NS 262.5 / 262.5 262.5 / 262.5 Inj 250 ML @ 250 mls/hr IV.SIG Q8H [facility] Rx#:[id number] Other: # Voids 2 Results - Labs CBC & Chem 7: 12/01/17 10:24 12/01/17 10:24 Laboratory Results - last 24 hr 12/01/17 12/01/17 12/01/17 10:24 10:24 10:24 WBC 11.8 H RBC 4.23 L Hgb 11.8 L Hct 35.1 L MCV 83.0 MCH 27.9 MCHC 33.6 RDW 13.3 Plt Count 317 MPV 7.2 Neut % (Auto) 77.3 H Lymph % (Auto) 17.4 [place] % (Auto) 4.6 Eos % (Auto) 0.5 Baso % (Auto) 0.2 Neut # (Auto) 9.1 H Lymph # (Auto) 2.0 [place] # (Auto) 0.5 Eos # (Auto) 0.1 Baso # (Auto) 0.0 WBC Differential . Differential Comment Auto diff final Sodium 137 Potassium 4.0 Chloride 106 Carbon Dioxide 20.0 L Anion Gap 11 BUN 3 L Creatinine 0.68 Estimated GFR Greater than 89 Random Glucose 107 H Calcium 8.4 L Phosphorus 3.0 Magnesium 2.0 Total Bilirubin 0.4 AST 16 ALT 19 Alkaline Phosphatase 81 Total Protein 7.1 Albumin 2.5 L Microbiology 11/30/17 07:04 Blood - Peripheral Aerobic Blood Culture - Preliminary No growth in 1 day 11/30/17 07:04 Blood - Peripheral Anaerobic Blood Culture - Preliminary No growth in 1 day 11/29/17 20:06 Blood - Peripheral Aerobic Blood Culture - Preliminary No growth in 2 days 11/29/17 20:06 Blood - Peripheral Anaerobic Blood Culture - Preliminary gram positive cocci 11/29/17 20:00 Blood - Peripheral Aerobic Blood Culture - Preliminary No growth in 2 days 11/29/17 20:00 Blood - Peripheral Anaerobic Blood Culture - Preliminary gram positive cocci 11/27/17 22:00 Blood - Peripheral Aerobic Blood Culture - Final S. aureus MRSA 11/27/17 22:00 Blood - Peripheral Anaerobic Blood Culture - Final S. aureus MRSA 11/27/17 22:06 Blood - Peripheral Aerobic Blood Culture - Final S. aureus MRSA 11/27/17 22:06 Blood - Peripheral Anaerobic Blood Culture - Final S. aureus MRSA 11/28/17 15:37 Catheter Tip - Central Venous Line Wound Culture - Preliminary S. aureus MRSA gram negative rods Corynebacterium species Assessment and Plan - Plan This is a 32-year-old male with history of IV drug use, recently diagnosed colitis status post surgery, discharged on Cubicin, readmitted for fever. Sepsis -ID following -Sepsis, MRSA bacteremia-blood cultures drawn growing MRSA, started on vancomycin. PICC line removed, PICC tip sent for culture. Catheter tip culture grew MRSA, Corynebacterium and gram-negative rods, discussed with infectious disease, cefepime started. -Plan per ID on 12/01: Repeat 2 BC; Follow PICC tip for cultures; Continue IV Vanco (target 15-20); Continue Cefepime IV 2 gm q8hrs -Check echocardiogram, CT scan of the cervical spine unremarkable. CT scan of the chest showed septic emboli. -Might need MRI of the left shoulder if pain worsens and range of motion worsens. Left lower lobe pneumonia versus septic emboli-chest x-ray showed left lower lobe infiltrate, likely from pneumonia versus metastatic septic emboli. CT scan of the chest showed septic emboli in the left. Cervical Discitis-status post discectomy during previous admission, antibiotics as above, continue [place] for pain control with NSAIDs. Hyponatremia-resolved; monitor. Hypokalemia-replaced, resolved; monitor DVT prophylaxis: Low risk, Lovenox.
--- NOTE | 2017-12-01 16:02 | ECHRPT ---
Indication: sepsis endocarditis CONCLUSIONS The left ventricular systolic function is mildly reduced with an estimated ejection fraction in the range of 50%. There is trace tricuspid valve regurgitation. BP: / HR: Rhythm: Technical Quality: FINDINGS LEFT VENTRICLE Normal left ventricular size. Wall thickness is normal. The left ventricular systolic function is mildly reduced with an estimated ejection fraction in the range of 50%. RIGHT VENTRICLE Normal right ventricular size and systolic function. LEFT ATRIUM The left atrial size is normal. RIGHT ATRIUM The right atrial size is normal. ATRIAL SEPTUM Normal atrial septal thickness AORTA The aortic root and proximal ascending aorta are normal in size on limited imaging. MITRAL VALVE Structurally normal mitral valve. No mitral valve stenosis or regurgitation. AORTIC VALVE Trileaflet aortic valve. No aortic valve stenosis or regurgitation. TRICUSPID VALVE Grossly normal tricuspid valve. There is trace tricuspid valve regurgitation. The estimated pulmonary arterial pressure is 38 mmHg. PULMONARY VALVE The pulmonary valve is not well visualized. VESSELS The inferior vena cava is normal in size. PERICARDIUM No pericardial effusion. Kris Norwood DO (Electronically Signed) Final Date:01 December 2017 16:01
[2017-12-01] MEDS: Enoxaparin Inj 40 MG/0.4 ML Syringe SQ SCH (23:13)
[2017-12-01] MEDS: Melatonin 5 MG Tablet PO PRN (23:13)
[2017-12-02] MEDS ORDERED: Pharmacy Ordered Lab Info OTHER ONE (03:45)
[2017-12-02] MEDS: Vancomycin Inj 1,250 MG in Sodium Chlor 0.9% Inj 250 ML IV.SIG SCH ×2 (03:59→22:50)
--- NOTE | 2017-12-02 09:31 | P.PN ---
Subjective Interval history: Follow-up visit sepsis, MRSA bacteremia, pneumonia versus septic emboli. Patient seen and examined today. Reports he is doing well. States he occasionally has pain on the left side of his chest otherwise, Denies pain and discomfort. Denies SOB/ dyspnea. Denies chest pain, palpitations, headaches, dizziness. Denies fevers, chills, n/v/d. Denies dysuria. Physical Exam Vital signs: Vital Signs 12/01/17 11:24 12/01/17 12:00 12/01/17 13:25 Temperature 98.2 F Pulse Rate 102 H 62 Respiratory Rate 18 Blood Pressure 109/68 Pulse Oximetry 97 97 12/01/17 14:39 12/01/17 16:33 12/01/17 19:09 Temperature 97.9 F Pulse Rate 96 H 73 Respiratory Rate 18 18 Blood Pressure 128/64 Pulse Oximetry 100 12/01/17 19:40 12/01/17 20:00 12/01/17 23:13 Temperature 98.5 F Pulse Rate 85 Respiratory Rate 18 19 Blood Pressure 129/80 Pulse Oximetry 97 97 12/02/17 00:00 12/02/17 03:27 12/02/17 03:50 Temperature 98 F Pulse Rate 68 Respiratory Rate 18 19 19 Blood Pressure 118/68 Pulse Oximetry 98 12/02/17 04:00 12/02/17 07:52 Temperature 97.9 F Pulse Rate 63 Respiratory Rate 16 18 Blood Pressure 127/76 Pulse Oximetry 96 Intake & Output 12/01/17 12/02/17 12/02/17 18:59 06:59 18:59 Intake Total 725.0 / 725.0 1362.5 / 1362.5 362.5 / 362.5 Output Total 950 / 950 Balance 725.0 / 725.0 412.5 / 412.5 362.5 / 362.5 Weight 65.3 kg Intake: IV 725.0 / 725.0 362.5 / 362.5 362.5 / 362.5 Maxipime Inj 2,000 MG In NS Inj 200 / 200 100 / 100 100 / 100 100 ML @ 200 mls/hr IV.SIG Q8H [facility] Rx#:[id number] Vancomycin Inj 1,250 MG In NS 525.0 / 525.0 262.5 / 262.5 262.5 / 262.5 Inj 250 ML @ 250 mls/hr IV.SIG Q8H [facility] Rx#:[id number] Oral 1000 / 1000 Output: Urine 950 / 950 Other: # Voids 1 Date of Last Bowel Movement 11/28/17 # Bowel Movements 0 Narrative: GENERAL: This is a thin appearing, well-developed patient, in no apparent distress. SKIN: Warm and dry. Multiple scabbed wound healing left and right upper arm. HEENT: Normocephalic. Pupils equal round and reactive. Nose without bleeding. Airway patent. NECK: Trachea midline. No JVD. Supple. CARDIOVASCULAR: Regular rate and rhythm without murmurs, gallops, or rubs. RESPIRATORY: Clear to auscultation. Breath sounds equal bilaterally. No wheezes , rales, or rhonchi. GASTROINTESTINAL: Abdomen soft, non-tender, nondistended. Bowel Sounds normoactive x4. MUSCULOSKELETAL: Extremities without clubbing, cyanosis, or edema. NEUROLOGICAL: Awake and alert. No focal neuro deficit. Moves all extremities. Normal speech. Results - Labs CBC & Chem 7: 12/01/17 10:24 12/01/17 10:24 Laboratory Results - last 24 hr 12/01/17 12/01/17 12/01/17 10:24 10:24 10:24 WBC 11.8 H RBC 4.23 L Hgb 11.8 L Hct 35.1 L MCV 83.0 MCH 27.9 MCHC 33.6 RDW 13.3 Plt Count 317 MPV 7.2 Neut % (Auto) 77.3 H Lymph % (Auto) 17.4 [place] % (Auto) 4.6 Eos % (Auto) 0.5 Baso % (Auto) 0.2 Neut # (Auto) 9.1 H Lymph # (Auto) 2.0 [place] # (Auto) 0.5 Eos # (Auto) 0.1 Baso # (Auto) 0.0 WBC Differential . Differential Comment Auto diff final Sodium 137 Potassium 4.0 Chloride 106 Carbon Dioxide 20.0 L Anion Gap 11 BUN 3 L Creatinine 0.68 Estimated GFR Greater than 89 Random Glucose 107 H Calcium 8.4 L Phosphorus 3.0 Magnesium 2.0 Total Bilirubin 0.4 AST 16 ALT 19 Alkaline Phosphatase 81 Total Protein 7.1 Albumin 2.5 L Vancomycin Trough 12/02/17 03:30 WBC RBC Hgb Hct MCV MCH MCHC RDW Plt Count MPV Neut % (Auto) Lymph % (Auto) [place] % (Auto) Eos % (Auto) Baso % (Auto) Neut # (Auto) Lymph # (Auto) [place] # (Auto) Eos # (Auto) Baso # (Auto) WBC Differential Differential Comment Sodium Potassium Chloride Carbon Dioxide Anion Gap BUN Creatinine Estimated GFR Random Glucose Calcium Phosphorus Magnesium Total Bilirubin AST ALT Alkaline Phosphatase Total Protein Albumin Vancomycin Trough 25.1 H Microbiology 11/30/17 07:04 Blood - Peripheral Aerobic Blood Culture - Preliminary gram positive cocci 11/30/17 07:04 Blood - Peripheral Anaerobic Blood Culture - Preliminary No growth in 1 day 11/28/17 15:37 Catheter Tip - Central Venous Line Wound Culture - Final S. aureus MRSA gram negative rods Corynebacterium species 11/29/17 20:00 Blood - Peripheral Aerobic Blood Culture - Preliminary No growth in 2 days 11/29/17 20:00 Blood - Peripheral Anaerobic Blood Culture - Preliminary S. aureus MRSA 11/29/17 20:06 Blood - Peripheral Aerobic Blood Culture - Preliminary No growth in 2 days 11/29/17 20:06 Blood - Peripheral Anaerobic Blood Culture - Preliminary gram positive cocci Assessment and Plan - Assessment (1) Septic embolism Code(s): I26.90 - Septic pulmonary embolism without acute cor pulmonale Status : Acute (2) Bacteremia due to methicillin resistant Staphylococcus aureus Code(s): R78.81 - Bacteremia Status: Acute - Plan 32-year-old male with history of IV drug use, recently diagnosed colitis status post surgery, discharged on Cubicin, readmitted for fever. Sepsis, Bacteremia Hx IVDA, non compliance with outpatient tx -ID following -Sepsis, MRSA bacteremia-blood cultures drawn growing MRSA, on vancomycin. PICC line removed, PICC tip sent for culture. Catheter tip culture grew MRSA, Corynebacterium and gram-negative rods, discussed with infectious disease, cefepime started. -Per ID on 12/01: Repeat 2 BC; Follow PICC tip for cultures; Continue IV Vanco (target 15-20); Continue Cefepime IV 2 gm q8hrs -Echocardiogram Trace tricuspid valve regurg, no vegetation noted EF 50% -CT scan of the cervical spine unremarkable. CT scan of the chest showed septic emboli. -BC continues to be positive. Cont ABX Septic emboli -Chest x-ray showed left lower lobe infiltrate, likely from pneumonia versus metastatic septic emboli. -CT scan of the chest showed septic emboli in the left. -Continue Vancomycin, cefepime. Reeval for stop date, patient with history not showing up in the infusion center. May have difficulty DC may need to have prolonged ABX and repeat BC. He is now about 6 weeks ABX since prior admission. His BC continues to show positive cultures -11/30/17 -ID following as above Cervical Discitis status post discectomy during previous admission -antibiotics as above, continue [place] for pain control with NSAIDs. DVT prophylaxis: Lovenox.
[2017-12-02] MEDS: Melatonin 5 MG Tablet PO PRN (22:50)
[2017-12-03] MEDS: Enoxaparin Inj 40 MG/0.4 ML Syringe SQ SCH (01:42)
[2017-12-03 10:08] LABS: Baso % (Auto) 0.4 % (0.0-2.0); Eos # (Auto) 0.2 th/mm3 (0.0-0.4); Eos % (Auto) 2.2 % (0.0-4.0); Hematocrit 35.9 % (39.0-51.0); Hemoglobin 11.7 gm/dL (13.0-17.0); Lymph # (Auto) 2.1 th/mm3 (1.0-4.8); Mean Corpuscular HGB Conc 32.7 % (32.0-36.0); Mean Corpuscular Hemoglobin 27.9 pg (27.0-34.0); Mean Corpuscular Volume 85.4 fL (80.0-100.0); Mean Platelet Volume 7.1 fL (7.0-11.0); Mono # (Auto) 0.6 th/mm3 (0.0-0.9); Mono % (Auto) 6.7 % (0.0-8.0); Neut # (Auto) 5.9 th/mm3 (1.8-7.7); Neut % (Auto) 66.7 % (16.0-70.0); Platelet Count 298 th/mm3 (150-450); Red Blood Count 4.21 mil/mm3 (4.50-5.90); White Blood Count 8.8 th/mm3 (4.0-11.0)
[2017-12-03] MEDS: Vancomycin Inj 1,250 MG in Sodium Chlor 0.9% Inj 250 ML IV.SIG SCH ×2 (10:18→23:24)
[2017-12-03 10:35] LABS: Anion Gap 10 meq/L (5-15); Blood Urea Nitrogen 8 mg/dL (7-18); Calcium 8.9 mg/dL (8.5-10.1); Carbon Dioxide 21.3 meq/L (21.0-32.0); Chloride 105 meq/L (98-107); Glomerular Filtration Rate Greater Than 89 mL/min (>89); Glucose,Random 92 mg/dL (74-106); Potassium 4.4 meq/L (3.5-5.1); Sodium 136 meq/L (136-145)
--- NOTE | 2017-12-03 11:33 | P.PN ---
Subjective Interval history: Follow-up visit sepsis, MRSA bacteremia, pneumonia versus septic emboli. Patient seen and examined today. Reports he is doing well. Complaints of having labs drawn every day but they are unable to get blood from it. History of IVDA and almost all the veins have been collapsed. Requesting peripheral line that could have blood draw. Will ask vascular ultrasound or peripheral line placement for lab draws. Otherwise, denies pain and discomfort. Denies SOB/ dyspnea. Denies chest pain, palpitations, headaches, dizziness. Denies fevers, chills, n/v/d. Denies dysuria. Physical Exam Vital signs: Vital Signs 12/02/17 12:00 12/02/17 13:23 12/02/17 13:27 Temperature 97.8 F Pulse Rate 95 H 55 L Respiratory Rate 18 18 Blood Pressure 129/77 Pulse Oximetry 96 12/02/17 14:09 12/02/17 14:10 12/02/17 16:00 Temperature 97.7 F Pulse Rate 55 L 98 H Respiratory Rate 18 Blood Pressure 127/72 Pulse Oximetry 96 97 12/02/17 16:10 12/02/17 19:50 12/02/17 20:00 Temperature 98.2 F Pulse Rate 120 H 112 H Respiratory Rate 6 L 16 Blood Pressure 115/71 Pulse Oximetry 94 L 12/02/17 20:10 12/03/17 00:00 12/03/17 02:41 Temperature 98.1 F Pulse Rate 112 H 99 H Respiratory Rate 16 20 Blood Pressure 124/73 Pulse Oximetry 97 12/03/17 04:00 12/03/17 08:00 12/03/17 10:16 Temperature 98.1 F 98.1 F Pulse Rate 77 78 Respiratory Rate 16 18 16 Blood Pressure 120/69 120/67 Pulse Oximetry 96 98 Intake & Output 12/02/17 12/03/17 12/03/17 18:59 06:59 18:59 Intake Total 462.5 / 462.5 1802.5 / 1802.5 Balance 462.5 / 462.5 1802.5 / 1802.5 Weight 63.1 kg Intake: IV 462.5 / 462.5 1362.5 / 1362.5 NS Inj 1,000 ML @ 100 mls/hr IV 1000 / 1000 .CONT .Q10H [facility] Rx#:[id number] Maxipime Inj 2,000 MG In NS Inj 200 / 200 100 / 100 100 ML @ 200 mls/hr IV.SIG Q8H [facility] Rx#:[id number] Vancomycin Inj 1,250 MG In NS 262.5 / 262.5 262.5 / 262.5 Inj 250 ML @ 250 mls/hr IV.SIG Q12H [facility] Rx#:[id number] Oral 440 / 440 Other: # Voids 1 4 3 Narrative: GENERAL: This is a thin appearing, well-developed patient, in no apparent distress. SKIN: Warm and dry. Multiple scabbed wound healing left and right upper arm. HEENT: Normocephalic. Pupils equal round and reactive. Nose without bleeding. Airway patent. NECK: Trachea midline. No JVD. Supple. CARDIOVASCULAR: Regular rate and rhythm without murmurs, gallops, or rubs. RESPIRATORY: Clear to auscultation. Breath sounds equal bilaterally. No wheezes , rales, or rhonchi. GASTROINTESTINAL: Abdomen soft, non-tender, nondistended. Bowel Sounds normoactive x4. MUSCULOSKELETAL: Extremities without clubbing, cyanosis, or edema. NEUROLOGICAL: Awake and alert. No focal neuro deficit. Moves all extremities. Normal speech. Results - Labs CBC & Chem 7: 12/03/17 09:21 12/03/17 09:21 Laboratory Results - last 24 hr 12/02/17 12/03/17 12/03/17 17:06 09:21 09:21 WBC 8.8 RBC 4.21 L Hgb 11.7 L Hct 35.9 L MCV 85.4 MCH 27.9 MCHC 32.7 RDW 14.0 Plt Count 298 MPV 7.1 Neut % (Auto) 66.7 Lymph % (Auto) 24.0 [place] % (Auto) 6.7 Eos % (Auto) 2.2 Baso % (Auto) 0.4 Neut # (Auto) 5.9 Lymph # (Auto) 2.1 [place] # (Auto) 0.6 Eos # (Auto) 0.2 Baso # (Auto) 0.0 WBC Differential . Differential Comment Auto diff final Sodium 136 Potassium 4.4 Chloride 105 Carbon Dioxide 21.3 Anion Gap 10 BUN 8 Creatinine 0.57 L Estimated GFR Greater than 89 Random Glucose 92 Calcium 8.9 Random Vancomycin 8.7 Microbiology 12/02/17 14:58 Blood - Peripheral Aerobic Blood Culture - Preliminary No growth in 1 day 12/02/17 14:58 Blood - Peripheral Anaerobic Blood Culture - Preliminary No growth in 1 day 11/30/17 07:04 Blood - Peripheral Aerobic Blood Culture - Final S. aureus MRSA 11/30/17 07:04 Blood - Peripheral Anaerobic Blood Culture - Preliminary No growth in 3 days 11/29/17 20:06 Blood - Peripheral Aerobic Blood Culture - Preliminary No growth in 4 days 11/29/17 20:06 Blood - Peripheral Anaerobic Blood Culture - Final S. aureus MRSA 11/29/17 20:00 Blood - Peripheral Aerobic Blood Culture - Preliminary No growth in 4 days 11/29/17 20:00 Blood - Peripheral Anaerobic Blood Culture - Final S. aureus MRSA Assessment and Plan - Assessment (1) Septic embolism Code(s): I26.90 - Septic pulmonary embolism without acute cor pulmonale Status : Acute (2) Bacteremia due to methicillin resistant Staphylococcus aureus Code(s): R78.81 - Bacteremia Status: Acute - Plan 32-year-old male with history of IV drug use, recently diagnosed colitis status post surgery, discharged on Cubicin, readmitted for fever. Sepsis, Bacteremia Hx IVDA, non compliance with outpatient tx -ID following -Sepsis, MRSA bacteremia-blood cultures drawn growing MRSA, on vancomycin. PICC line removed, PICC tip sent for culture. Catheter tip culture grew MRSA, Corynebacterium and gram-negative rods, discussed with infectious disease, cefepime started. -Per ID on 12/01: Repeat 2 BC; Follow PICC tip for cultures; Continue IV Vanco (target 15-20); Continue Cefepime IV 2 gm q8hrs -Echocardiogram Trace tricuspid valve regurg, no vegetation noted EF 50% -CT scan of the cervical spine unremarkable. CT scan of the chest showed septic emboli. -BC continues to be positive. Cont ABX -Needing BC bottles and freq lab draws. IV Vascular team consulted line placement for blood draw. Septic emboli -Chest x-ray showed left lower lobe infiltrate, likely from pneumonia versus metastatic septic emboli. -CT scan of the chest showed septic emboli in the left. -Continue Vancomycin, cefepime. Reeval for stop date, patient with history not showing up in the infusion center. May have difficulty DC may need to have prolonged ABX and repeat BC. He is now about 6 weeks ABX since prior admission. His BC continues to show positive cultures -11/30/17 -ID following as above Cervical Discitis status post discectomy during previous admission -antibiotics as above, continue [place] for pain control with NSAIDs. DVT prophylaxis: Lovenox. Code Status: Full Code Discussed Condition With: Patient, nursing Discharge Planning: DC home when cleared by ID
--- NOTE | 2017-12-03 15:03 | P.PNID ---
Subjective Remarks: Patient is a 32-year-old male, with known history of IV drug use, presented to the hospital complaining of fever and chills, and left-sided chest pain. This is been going on for several days. He denies any significant cough or congestion. He has not had any nausea or vomiting or any diarrhea or urinary complaints. His history is significant for a diagnosis of C5-C6 discitis and epidural abscess for which she was hospitalized October 18 - October 26. At that time cultures were negative, but the patient was on IV antibiotics for at least 2-3 days before he had surgery. All his blood cultures were negative. Patient was discharge and arrangements were made for patient to get IV antibiotics at the infusion clinic. He was on an oral quinolone, and IV Cubicin. His PICC line got dislodged, and it was change on October 27. Patient missed most of his IV antibiotic treatment. The last time he was seen in the infusion clinic was November 13. He claims that he did not have any transportation that is why he was not able to go to the clinic. Patient denies using his PICC line for drugs but he admits to using IV drugs. Since admission he has had fevers on the first hospital day, and he is afebrile today. He is complaining of left-sided chest pain. His blood cultures are now reported as growing gram-positive cocci. Chest x-ray showing a left base infiltrate. CT of the cervical spine is unremarkable with no evidence of abscess. Patient still has his PICC line in the right upper extremity. Infectious disease consultation has been requested to assist with evaluation and treatment of fever and sepsis. Notes reviewed Temps ok No rash No diarrhea PICC line C/S MRSA, GNR and Corynebacterium BC with MRSA, last (+) 11/30 CT chest with septic emboli CT A/P ok Echo ok Antibiotics: Cefepime Vancomycin IV Lines: Lines okay Past Medical History: Reviewed. Allergies/Adverse Reactions: Allergies No Known Allergies Allergy (Unverified 11/13/17 09:36) Objective Vital Signs 12/02/17 16:00 12/02/17 16:10 12/02/17 19:50 Temperature 97.7 F Pulse Rate 98 H 120 H Respiratory Rate 18 6 L Blood Pressure 127/72 Pulse Oximetry 97 12/02/17 20:00 12/02/17 20:10 12/03/17 00:00 Temperature 98.2 F 98.1 F Pulse Rate 112 H 112 H 99 H Respiratory Rate 16 16 Blood Pressure 115/71 124/73 Pulse Oximetry 94 L 97 12/03/17 02:41 12/03/17 04:00 12/03/17 08:00 Temperature 98.1 F 98.1 F Pulse Rate 77 59 L Respiratory Rate 20 16 18 Blood Pressure 120/69 120/67 Pulse Oximetry 96 98 12/03/17 10:16 12/03/17 12:00 Temperature 97.8 F Pulse Rate 98 H Respiratory Rate 16 18 Blood Pressure 122/74 Pulse Oximetry 96 Intake & Output 12/02/17 12/03/17 12/03/17 18:59 06:59 18:59 Intake Total 462.5 / 462.5 1802.5 / 1802.5 Balance 462.5 / 462.5 1802.5 / 1802.5 Weight 63.1 kg Intake: IV 462.5 / 462.5 1362.5 / 1362.5 NS Inj 1,000 ML @ 100 mls/hr IV 1000 / 1000 .CONT .Q10H [facility] Rx#:[id number] Maxipime Inj 2,000 MG In NS Inj 200 / 200 100 / 100 100 ML @ 200 mls/hr IV.SIG Q8H [facility] Rx#:[id number] Vancomycin Inj 1,250 MG In NS 262.5 / 262.5 262.5 / 262.5 Inj 250 ML @ 250 mls/hr IV.SIG Q12H [facility] Rx#:[id number] Oral 440 / 440 Other: # Voids 1 4 3 12/02/17 14:58 Blood - Peripheral Aerobic Blood Culture - Preliminary No growth in 1 day 12/02/17 14:58 Blood - Peripheral Anaerobic Blood Culture - Preliminary No growth in 1 day 11/30/17 07:04 Blood - Peripheral Aerobic Blood Culture - Final S. aureus MRSA 11/30/17 07:04 Blood - Peripheral Anaerobic Blood Culture - Preliminary No growth in 3 days 11/29/17 20:06 Blood - Peripheral Aerobic Blood Culture - Preliminary No growth in 4 days 11/29/17 20:06 Blood - Peripheral Anaerobic Blood Culture - Final S. aureus MRSA 11/29/17 20:00 Blood - Peripheral Aerobic Blood Culture - Preliminary No growth in 4 days 11/29/17 20:00 Blood - Peripheral Anaerobic Blood Culture - Final S. aureus MRSA 11/28/17 15:37 Catheter Tip - Central Venous Line Wound Culture - Final S. aureus MRSA gram negative rods Corynebacterium species 11/27/17 22:00 Blood - Peripheral Aerobic Blood Culture - Final S. aureus MRSA 11/27/17 22:00 Blood - Peripheral Anaerobic Blood Culture - Final S. aureus MRSA 11/27/17 22:06 Blood - Peripheral Aerobic Blood Culture - Final S. aureus MRSA 11/27/17 22:06 Blood - Peripheral Anaerobic Blood Culture - Final S. aureus MRSA Lab - Hematology Results 12/03/17 09:21 WBC 8.8 RBC 4.21 L Hgb 11.7 L Hct 35.9 L MCV 85.4 MCH 27.9 MCHC 32.7 RDW 14.0 Plt Count 298 MPV 7.1 Neut % (Auto) 66.7 Lymph % (Auto) 24.0 [place] % (Auto) 6.7 Eos % (Auto) 2.2 Baso % (Auto) 0.4 Neut # (Auto) 5.9 Lymph # (Auto) 2.1 [place] # (Auto) 0.6 Eos # (Auto) 0.2 Baso # (Auto) 0.0 WBC Differential . Differential Comment Auto diff final Lab - Chemistry Results 12/03/17 09:21 Sodium 136 Potassium 4.4 Chloride 105 Carbon Dioxide 21.3 Anion Gap 10 BUN 8 Creatinine 0.57 L Estimated GFR Greater than 89 Random Glucose 92 Calcium 8.9 Imaging: ITS Impressions Cervical Spine CT 11/27/17 22:02 CONCLUSION: No acute bony process in the cervical spine. Chest X-Ray 11/28/17 00:00 CONCLUSION: There continues to be a patchy infiltrate in the left lower lung without significant change versus slightly increased compared to the prior study. Abdomen/Pelvis CT 11/29/17 00:00 CONCLUSION: 1. Small bilateral pleural effusions with dependent atelectasis in the lungs. 2. Hepatosplenomegaly. 3. Fixation across mild compression deformity of L2. 4. No abscess identified within the abdomen and pelvis. Chest CT 11/29/17 00:00 CONCLUSION: 1. Multiple peripheral wedge-shaped consolidations in the lungs with some early cavitation in the anterior segment right upper lobe. Findings are most characteristic of septic embolic disease. 2. Small bilateral pleural effusions. No pericardial fluid. Assessment and Plan - Plan Impression Sepsis, with MRSA, and one with GNR, likely related to his PICC, likely him using his PICC for IVDU - suspicious for IE, echo negative - has septic lung emboli Hx cervical discitis, epidural abscess, S/P surgery L base infiltrate, ?septic emboli Recommendation Follow C/S Continue IV Vanco (target 15-20) - patient was not compliant when he was sent home to get his IV Abx in infusion clinic for his cervical spine infection Change Cefepime to Levaquin Follow cultures Monitor progress Will likely need Rx in house for his MRSA sepsis Will have hospitalist order and follow blood work weekly: CBC, creat and LFT I will be off December 04- Other ID MD available if needed in my absence
[2017-12-03] MEDS: levoFLOXacin 750 MG Tablet PO SCH (15:30)
[2017-12-03] MEDS: Sod Chloride 0.9% Inj 1,000 ML IV.CONT SCH ×4 (20:41→21:18)
[2017-12-03] MEDS: Melatonin 5 MG Tablet PO PRN (23:24)
[2017-12-04] MEDS: Enoxaparin Inj 40 MG/0.4 ML Syringe SQ SCH (06:28)
[2017-12-04] MEDS: Sod Chloride 0.9% Inj 1,000 ML IV.CONT SCH ×2 (06:28→15:15)
[2017-12-04] MEDS: levoFLOXacin 750 MG Tablet PO SCH (08:34)
[2017-12-04] MEDS ORDERED: Pharmacy Ordered Lab Info OTHER ONE (10:45)
--- NOTE | 2017-12-04 11:32 | P.PN ---
Subjective Interval history: Follow-up visit sepsis, MRSA bacteremia, pneumonia versus septic emboli. Patient seen and examined today. Reports he is doing well. Continues to have pain on the left side of his chest occasionally occurring taking deep breaths. Otherwise, denies pain and discomfort. Denies SOB/ dyspnea. Denies chest pain , palpitations, headaches, dizziness. Denies fevers, chills, n/v/d. Denies hematuria, dysuria. Physical Exam Vital signs: Vital Signs 12/03/17 12:00 12/03/17 13:28 12/03/17 15:32 Temperature 97.8 F Pulse Rate 98 H 95 H Respiratory Rate 18 16 Blood Pressure 122/74 Pulse Oximetry 96 12/03/17 16:00 12/03/17 20:00 12/03/17 20:39 Temperature 97.8 F Pulse Rate 124 H 99 H Respiratory Rate 18 17 Blood Pressure 126/65 Pulse Oximetry 96 12/04/17 00:00 12/04/17 04:00 12/04/17 07:00 Temperature 99 F 98.5 F Pulse Rate 89 96 H Respiratory Rate 18 18 12 Blood Pressure 124/67 Pulse Oximetry 96 96 12/04/17 08:00 12/04/17 08:29 Temperature Pulse Rate 91 H Respiratory Rate 18 12 Blood Pressure 127/75 Pulse Oximetry 97 Intake & Output 12/03/17 12/04/17 12/04/17 18:59 06:59 18:59 Intake Total 262.5 / 262.5 Balance 262.5 / 262.5 Weight 62.3 kg Intake: IV 262.5 / 262.5 Vancomycin Inj 1,250 MG In NS 262.5 / 262.5 Inj 250 ML @ 250 mls/hr IV.SIG Q12H [facility] Rx#:[id number] Other: # Voids 3 Narrative: GENERAL: This is a thin appearing, well-developed patient, in no apparent distress. SKIN: Warm and dry. Multiple scabbed wound healing left and right upper arm. HEENT: Normocephalic. Pupils equal round and reactive. Nose without bleeding. Airway patent. NECK: Trachea midline. No JVD. Supple. CARDIOVASCULAR: Regular rate and rhythm without murmurs, gallops, or rubs. RESPIRATORY: Clear to auscultation. Breath sounds equal bilaterally. No wheezes , rales, or rhonchi. GASTROINTESTINAL: Abdomen soft, non-tender, nondistended. Bowel Sounds normoactive x4. MUSCULOSKELETAL: Extremities without clubbing, cyanosis, or edema. NEUROLOGICAL: Awake and alert. No focal neuro deficit. Moves all extremities. Normal speech. Results - Labs CBC & Chem 7: 12/03/17 09:21 12/03/17 09:21 Laboratory Results - last 24 hr 11/28/17 17:10 Creatine Kinase 50.0 Microbiology 12/02/17 14:58 Blood - Peripheral Aerobic Blood Culture - Preliminary No growth in 2 days 12/02/17 14:58 Blood - Peripheral Anaerobic Blood Culture - Preliminary No growth in 2 days 11/30/17 07:04 Blood - Peripheral Aerobic Blood Culture - Final S. aureus MRSA 11/30/17 07:04 Blood - Peripheral Anaerobic Blood Culture - Preliminary No growth in 4 days 11/29/17 20:06 Blood - Peripheral Aerobic Blood Culture - Final No growth in 5 days 11/29/17 20:06 Blood - Peripheral Anaerobic Blood Culture - Final S. aureus MRSA 11/29/17 20:00 Blood - Peripheral Aerobic Blood Culture - Final No growth in 5 days 11/29/17 20:00 Blood - Peripheral Anaerobic Blood Culture - Final S. aureus MRSA Assessment and Plan - Assessment (1) Septic embolism Code(s): I26.90 - Septic pulmonary embolism without acute cor pulmonale Status : Acute (2) Bacteremia due to methicillin resistant Staphylococcus aureus Code(s): R78.81 - Bacteremia Status: Acute - Plan 32-year-old male with history of IV drug use, recently diagnosed colitis status post surgery, discharged on Cubicin, readmitted for fever. Sepsis, Bacteremia Hx IVDA, non compliance with outpatient tx -ID following -Sepsis, MRSA bacteremia-blood cultures drawn growing MRSA, on vancomycin. PICC line removed, PICC tip sent for culture. Catheter tip culture grew MRSA, Corynebacterium and gram-negative rods, discussed with infectious disease, cefepime started. -Per ID on 12/01: Repeat 2 BC; Follow PICC tip for cultures; Continue IV Vanco (target 15-20); Continue Cefepime IV 2 gm q8hrs -Echocardiogram Trace tricuspid valve regurg, no vegetation noted EF 50% -CT scan of the cervical spine unremarkable. CT scan of the chest showed septic emboli. -BC continues to be positive. Cont ABX -Needing BC bottles and freq lab draws. IV Vascular team consulted line placement for blood draw. Line was placed, but now previous IV line not working. -As per ID Continue with current management, will need to be treated inpatient. Septic emboli -Chest x-ray showed left lower lobe infiltrate, likely from pneumonia versus metastatic septic emboli. -CT scan of the chest showed septic emboli in the left. -Continue Vancomycin, cefepime. Reeval for stop date, patient with history not showing up in the infusion center. May have difficulty DC may need to have prolonged ABX and repeat BC. He is now about 6 weeks ABX since prior admission. His BC continues to show positive cultures -11/30/17 -ID following as above Cervical Discitis status post discectomy during previous admission -antibiotics as above, continue [place] for pain control with NSAIDs. DVT prophylaxis: Lovenox. Discharge Planning: DC home when cleared by ID
[2017-12-04] MEDS: Vancomycin Inj 1,250 MG in Sodium Chlor 0.9% Inj 250 ML IV.SIG SCH (11:50)
[2017-12-04] MEDS: Melatonin 5 MG Tablet PO PRN (20:51)
[2017-12-04] MEDS: Vancomycin Inj 1,000 MG in Sodium Chlor 0.9% Inj 250 ML IV.SIG SCH (20:51)
[2017-12-05] MEDS: Sod Chloride 0.9% Inj 1,000 ML IV.CONT SCH ×2 (02:13→11:54)
[2017-12-05] MEDS: Enoxaparin Inj 40 MG/0.4 ML Syringe SQ SCH (02:13)
[2017-12-05] MEDS: Vancomycin Inj 1,000 MG in Sodium Chlor 0.9% Inj 250 ML IV.SIG SCH ×3 (04:58→17:29)
[2017-12-05] MEDS: levoFLOXacin 750 MG Tablet PO SCH (08:10)
[2017-12-05] MEDS ORDERED: Pharmacy Ordered Lab Info OTHER ONE (11:45)
--- NOTE | 2017-12-05 12:59 | P.PNIM ---
Subjective Interval history: Most recent blood cultures from 12/04/2013 are negative at 1 day cultures from 02/2018 are negative at 3 days. Patient has no new complaints. No fevers overnight. Physical Exam Vital signs: Vital Signs 12/04/17 13:23 12/04/17 16:35 12/04/17 17:21 Temperature 98.1 F 98.4 F Pulse Rate 115 H 91 H 101 H Respiratory Rate 18 18 Blood Pressure 119/81 88/54 L 118/74 Pulse Oximetry 97 97 12/04/17 20:00 12/05/17 00:00 12/05/17 04:00 Temperature 97.5 F L 98.5 F 98.5 F Pulse Rate 94 H 92 H 89 Respiratory Rate 18 18 18 Blood Pressure 106/58 L 106/57 L 115/60 Pulse Oximetry 97 95 99 12/05/17 06:43 12/05/17 08:00 12/05/17 08:49 Temperature 97.5 F L Pulse Rate 90 89 Respiratory Rate 12 16 Blood Pressure 121/69 Pulse Oximetry 96 12/05/17 12:38 Temperature Pulse Rate 100 H Respiratory Rate Blood Pressure Pulse Oximetry Intake & Output 12/04/17 12/05/17 12/05/17 18:59 06:59 18:59 Intake Total 262.5 / 262.5 250 / 250 250 / 250 Output Total 150 / 150 Balance 262.5 / 262.5 100 / 100 250 / 250 Weight 63.7 kg Intake: IV 262.5 / 262.5 250 / 250 250 / 250 Vancomycin Inj 1,000 MG In NS 250 / 250 250 / 250 Inj 250 ML @ 250 mls/hr IV.SIG Q8H [facility] Rx#:[id number] Vancomycin Inj 1,250 MG In NS 262.5 / 262.5 Inj 250 ML @ 250 mls/hr IV.SIG Q12H [facility] Rx#:[id number] Output: Urine 150 / 150 Other: # Voids 1 Date of Last Bowel Movement 12/04/17 12/04/17 # Bowel Movements 1 1 Narrative: GENERAL: NAD, A&Ox3 HEAD: Normocephalic. NECK: Supple, trachea midline. No lymphadenopathy. EYES: No scleral icterus. No injection or drainage. CARDIOVASCULAR: Regular rate and rhythm without murmurs, gallops, or rubs. RESPIRATORY: Breath sounds equal bilaterally. No accessory muscle use. GASTROINTESTINAL: Abdomen soft, non-tender, nondistended. MUSCULOSKELETAL: No cyanosis, or edema. SKIN: Warm and dry. NEURO: No focal neurological deficits. Results - Labs CBC & Chem 7: 12/03/17 09:21 12/03/17 09:21 Laboratory Results - last 24 hr 11/28/17 12/05/17 17:10 10:55 CK-MM (CK-3) % 100 CK-MB (CK-2) % 0 CK-BB (CK-1) % Vancomycin Trough 7.6 Microbiology 12/04/17 10:45 Blood - Peripheral Aerobic Blood Culture - Preliminary No growth in 1 day 12/04/17 10:45 Blood - Peripheral Anaerobic Blood Culture - Preliminary No growth in 1 day 12/02/17 14:58 Blood - Peripheral Aerobic Blood Culture - Preliminary No growth in 3 days 12/02/17 14:58 Blood - Peripheral Anaerobic Blood Culture - Preliminary No growth in 3 days 11/30/17 07:04 Blood - Peripheral Aerobic Blood Culture - Final S. aureus MRSA 11/30/17 07:04 Blood - Peripheral Anaerobic Blood Culture - Final No growth in 5 days 11/29/17 20:06 Blood - Peripheral Aerobic Blood Culture - Final No growth in 5 days 11/29/17 20:06 Blood - Peripheral Anaerobic Blood Culture - Final S. aureus MRSA 11/29/17 20:00 Blood - Peripheral Aerobic Blood Culture - Final No growth in 5 days 11/29/17 20:00 Blood - Peripheral Anaerobic Blood Culture - Final S. aureus MRSA Assessment and Plan - Assessment (1) Septic embolism Code(s): I26.90 - Septic pulmonary embolism without acute cor pulmonale Status : Acute (2) Bacteremia due to methicillin resistant Staphylococcus aureus Code(s): R78.81 - Bacteremia Status: Acute - Plan 32-year-old male admitted for fever and bacteremia, with with history of IV drug use, recently diagnosed colitis status post surgery, previously discharged on Cubicin. Sepsis, Bacteremia Hx IVDA, non-compliance with outpatient tx Continue to follow cultures Awaiting negative blood cultures ID following Continue vancomycin Continue cefepime Septic emboli Pneumonia Continue vancomycin and cefepime as above Echocardiogram negative for evidence of infective endocarditis Cervical discitis Status post discectomy on previous admit Continue antibiotics Continue as needed pain treatments DVT prophylaxis Lovenox Discharge planning Awaiting negative blood cultures prior to selection of antibiotic treatment plan
[2017-12-06] MEDS: Sod Chloride 0.9% Inj 1,000 ML IV.CONT SCH ×3 (01:16→18:20)
[2017-12-06] MEDS: Enoxaparin Inj 40 MG/0.4 ML Syringe SQ SCH (01:16)
[2017-12-06] MEDS: Melatonin 5 MG Tablet PO PRN ×2 (01:21→22:34)
[2017-12-06] MEDS: Vancomycin Inj 1,000 MG in Sodium Chlor 0.9% Inj 250 ML IV.SIG SCH ×4 (01:22→18:24)
[2017-12-06] MEDS: levoFLOXacin 750 MG Tablet PO SCH (09:27)
--- NOTE | 2017-12-06 11:05 | P.PNIM ---
Subjective Interval history: No new complaints today. Last 2 blood cultures have remained negative thus far. Further monitoring needed. Physical Exam Vital signs: Vital Signs 12/05/17 12:00 12/05/17 12:38 12/05/17 16:00 Temperature 97.6 F 97.3 F L Pulse Rate 84 100 H 91 H Respiratory Rate 16 16 Blood Pressure 124/78 123/71 Pulse Oximetry 97 99 12/05/17 18:00 12/05/17 20:00 12/06/17 00:00 Temperature 97.8 F 97.8 F Pulse Rate 95 H 99 H 88 Respiratory Rate 18 18 Blood Pressure 128/72 116/64 Pulse Oximetry 97 96 12/06/17 04:00 12/06/17 08:32 Temperature 98.5 F 98.7 F Pulse Rate 79 71 Respiratory Rate 18 16 Blood Pressure 130/66 127/73 Pulse Oximetry 99 95 Intake & Output 12/05/17 12/06/17 12/06/17 18:59 06:59 18:59 Intake Total 500 / 500 250 / 250 Output Total 200 / 200 Balance 500 / 500 50 / 50 Weight 63.9 kg Intake: IV 500 / 500 250 / 250 Vancomycin Inj 1,000 MG In NS 500 / 500 250 / 250 Inj 250 ML @ 250 mls/hr IV.SIG Q6H [facility] Rx#:[id number] Output: Urine 200 / 200 Other: # Voids 2 Date of Last Bowel Movement 12/04/17 12/05/17 # Bowel Movements 1 Narrative: GENERAL: NAD, A&Ox3 HEAD: Normocephalic. NECK: Supple, trachea midline. No lymphadenopathy. EYES: No scleral icterus. No injection or drainage. CARDIOVASCULAR: Regular rate and rhythm without murmurs, gallops, or rubs. RESPIRATORY: Breath sounds equal bilaterally. No accessory muscle use. GASTROINTESTINAL: Abdomen soft, non-tender, nondistended. MUSCULOSKELETAL: No cyanosis, or edema. SKIN: Warm and dry. NEURO: No focal neurological deficits. Results - Labs CBC & Chem 7: 12/03/17 09:21 12/03/17 09:21 Laboratory Results - last 24 hr 12/05/17 10:55 Vancomycin Trough 7.6 Microbiology 12/04/17 10:45 Blood - Peripheral Aerobic Blood Culture - Preliminary No growth in 2 days 12/04/17 10:45 Blood - Peripheral Anaerobic Blood Culture - Preliminary No growth in 2 days 12/02/17 14:58 Blood - Peripheral Aerobic Blood Culture - Preliminary No growth in 4 days 12/02/17 14:58 Blood - Peripheral Anaerobic Blood Culture - Preliminary No growth in 4 days 11/30/17 07:04 Blood - Peripheral Aerobic Blood Culture - Final S. aureus MRSA 11/30/17 07:04 Blood - Peripheral Anaerobic Blood Culture - Final No growth in 5 days Assessment and Plan - Assessment (1) Septic embolism Code(s): I26.90 - Septic pulmonary embolism without acute cor pulmonale Status : Acute (2) Bacteremia due to methicillin resistant Staphylococcus aureus Code(s): R78.81 - Bacteremia Status: Acute - Plan 32-year-old male admitted for fever and bacteremia, with with history of IV drug use, recently diagnosed colitis status post surgery, previously discharged on Cubicin. Continue to follow blood cultures. Patient has no new complaints. Awaiting final antibiotic treatment plan prior to discharge. Sepsis, Bacteremia Hx IVDA, non-compliance with outpatient tx Continue to follow cultures Awaiting negative blood cultures ID following Continue vancomycin Continue cefepime Septic emboli Pneumonia Continue vancomycin and cefepime as above Echocardiogram negative for evidence of infective endocarditis Cervical discitis Status post discectomy on previous admit Continue antibiotics Continue as needed pain treatments DVT prophylaxis Lovenox Discharge planning Awaiting negative blood cultures prior to selection of antibiotic treatment plan
[2017-12-06] MEDS ORDERED: Pharmacy Ordered Lab Info OTHER ONE (11:45)
[2017-12-07] MEDS: Vancomycin Inj 1,000 MG in Sodium Chlor 0.9% Inj 250 ML IV.SIG SCH ×4 (01:16→18:04)
[2017-12-07] MEDS: Enoxaparin Inj 40 MG/0.4 ML Syringe SQ SCH (01:16)
[2017-12-07] MEDS: Sod Chloride 0.9% Inj 1,000 ML IV.CONT SCH ×2 (06:15→16:19)
[2017-12-07] MEDS: levoFLOXacin 750 MG Tablet PO SCH (08:58)
--- NOTE | 2017-12-07 11:17 | P.PNIM ---
Subjective Interval history: Patient has no new complaints. Occasional episodes of tachycardia. No pain complaints when seen. Physical Exam Vital signs: Vital Signs 12/06/17 12:00 12/06/17 14:01 12/06/17 14:58 Temperature 97.9 F Pulse Rate 97 H 90 Respiratory Rate 16 9 L Blood Pressure 130/81 Pulse Oximetry 98 12/06/17 16:00 12/06/17 20:09 12/06/17 22:09 Temperature 97.5 F L 98.3 F Pulse Rate 109 H 105 H 104 H Respiratory Rate 16 18 Blood Pressure 129/89 139/83 Pulse Oximetry 97 95 12/06/17 23:42 12/07/17 00:00 12/07/17 04:00 Temperature 97.6 F 97.7 F Pulse Rate 92 H 103 H 96 H Respiratory Rate 18 18 Blood Pressure 113/70 121/57 L Pulse Oximetry 97 95 12/07/17 09:03 Temperature 98 F Pulse Rate 112 H Respiratory Rate 18 Blood Pressure 126/80 Pulse Oximetry 97 Intake & Output 12/06/17 12/07/17 12/07/17 18:59 06:59 18:59 Intake Total 250 / 250 250 / 250 Balance 250 / 250 250 / 250 Weight 63.8 kg Intake: IV 250 / 250 250 / 250 Vancomycin Inj 1,000 MG In NS 250 / 250 250 / 250 Inj 250 ML @ 250 mls/hr IV.SIG Q6H [facility] Rx#:[id number] Other: # Voids 2 3 Date of Last Bowel Movement 12/05/17 12/06/17 # Bowel Movements 1 Narrative: GENERAL: NAD, A&Ox3 HEAD: Normocephalic. NECK: Supple, trachea midline. No lymphadenopathy. EYES: No scleral icterus. No injection or drainage. CARDIOVASCULAR: Regular rate and rhythm without murmurs, gallops, or rubs. RESPIRATORY: Breath sounds equal bilaterally. No accessory muscle use. GASTROINTESTINAL: Abdomen soft, non-tender, nondistended. MUSCULOSKELETAL: No cyanosis, or edema. SKIN: Warm and dry. NEURO: No focal neurological deficits. Results - Labs CBC & Chem 7: 12/03/17 09:21 12/03/17 09:21 Laboratory Results - last 24 hr 12/06/17 14:00 Vancomycin Trough 15.3 H Microbiology 12/04/17 10:45 Blood - Peripheral Aerobic Blood Culture - Preliminary No growth in 3 days 12/04/17 10:45 Blood - Peripheral Anaerobic Blood Culture - Preliminary No growth in 3 days 12/02/17 14:58 Blood - Peripheral Aerobic Blood Culture - Final No growth in 5 days 12/02/17 14:58 Blood - Peripheral Anaerobic Blood Culture - Final No growth in 5 days Assessment and Plan - Assessment (1) Septic embolism Code(s): I26.90 - Septic pulmonary embolism without acute cor pulmonale Status : Acute (2) Bacteremia due to methicillin resistant Staphylococcus aureus Code(s): R78.81 - Bacteremia Status: Acute - Plan 32-year-old male admitted for fever and bacteremia, with with history of IV drug use, recently diagnosed colitis status post surgery, previously discharged on Cubicin. No new complaints today. Occasional episodes of tachycardia. Cultures now respectively negative at 2 and 4 days. Sepsis, Bacteremia Hx IVDA, non-compliance with outpatient tx Continue to follow cultures Awaiting negative blood cultures ID following Continue vancomycin Continue cefepime Septic emboli Pneumonia Continue vancomycin and cefepime as above Echocardiogram negative for evidence of infective endocarditis Cervical discitis Status post discectomy on previous admit Continue antibiotics Continue as needed pain treatments DVT prophylaxis Lovenox Discharge planning Awaiting negative blood cultures prior to selection of antibiotic treatment plan
[2017-12-07] MEDS ORDERED: Pharmacy Ordered Lab Info OTHER ONE (11:45)
[2017-12-07] MEDS: Melatonin 5 MG Tablet PO PRN (22:11)
[2017-12-08] MEDS: Vancomycin Inj 1,000 MG in Sodium Chlor 0.9% Inj 250 ML IV.SIG SCH ×3 (00:27→12:45)
[2017-12-08] MEDS: Enoxaparin Inj 40 MG/0.4 ML Syringe SQ SCH (00:47)
[2017-12-08] MEDS: Sod Chloride 0.9% Inj 1,000 ML IV.CONT SCH ×2 (01:57→10:36)
[2017-12-08] MEDS ORDERED: Pharmacy Ordered Lab Info OTHER ONE (05:45)
[2017-12-08 07:13] LABS: Glomerular Filtration Rate Greater Than 89 mL/min (>89)
[2017-12-08 07:14] LABS: Vancomycin,Trough 14.9 mcg/mL (5.0-10.0)
[2017-12-08] MEDS: levoFLOXacin 750 MG Tablet PO SCH (10:34)
--- NOTE | 2017-12-08 11:05 | P.PNIM ---
Subjective Interval history: Patient cultures are negative at 5 days with finalize blood culture culture and 3 days with most recent blood culture. Patient has no complaints. Physical Exam Vital signs: Vital Signs 12/07/17 13:15 12/07/17 16:22 12/07/17 20:00 Temperature 97.9 F 98.4 F 99.7 F H Pulse Rate 113 H 106 H 114 H Respiratory Rate 18 16 18 Blood Pressure 123/74 137/75 117/96 H Pulse Oximetry 97 97 95 12/08/17 01:52 12/08/17 04:00 12/08/17 08:00 Temperature 97.5 F L 97.4 F L 97.6 F Pulse Rate 106 H 92 H 87 Respiratory Rate 18 18 Blood Pressure 117/67 117/71 118/58 L Pulse Oximetry 97 95 97 12/08/17 09:49 Temperature Pulse Rate 78 Respiratory Rate Blood Pressure Pulse Oximetry Intake & Output 12/07/17 12/08/17 12/08/17 18:59 06:59 18:59 Intake Total 250 / 250 500 / 500 250 / 250 Balance 250 / 250 500 / 500 250 / 250 Weight 63.6 kg Intake: IV 250 / 250 500 / 500 250 / 250 Vancomycin Inj 1,000 MG In NS 250 / 250 500 / 500 250 / 250 Inj 250 ML @ 250 mls/hr IV.SIG Q6H [facility] Rx#:[id number] Other: # Voids 4 Date of Last Bowel Movement 12/06/17 12/06/17 Narrative: GENERAL: NAD, A&Ox3 HEAD: Normocephalic. NECK: Supple, trachea midline. No lymphadenopathy. EYES: No scleral icterus. No injection or drainage. CARDIOVASCULAR: Regular rate and rhythm without murmurs, gallops, or rubs. RESPIRATORY: Breath sounds equal bilaterally. No accessory muscle use. GASTROINTESTINAL: Abdomen soft, non-tender, nondistended. MUSCULOSKELETAL: No cyanosis, or edema. SKIN: Warm and dry. NEURO: No focal neurological deficits. Results - Labs CBC & Chem 7: 12/03/17 09:21 12/08/17 06:00 Laboratory Results - last 24 hr 12/07/17 12/08/17 12:35 06:00 Creatinine 0.74 Estimated GFR Greater than 89 Vancomycin Trough 4.8 L 14.9 H Microbiology 12/04/17 10:45 Blood - Peripheral Aerobic Blood Culture - Preliminary No growth in 4 days 12/04/17 10:45 Blood - Peripheral Anaerobic Blood Culture - Preliminary No growth in 4 days 12/02/17 14:58 Blood - Peripheral Aerobic Blood Culture - Final No growth in 5 days 12/02/17 14:58 Blood - Peripheral Anaerobic Blood Culture - Final No growth in 5 days Assessment and Plan - Assessment (1) Septic embolism Code(s): I26.90 - Septic pulmonary embolism without acute cor pulmonale Status : Acute (2) Bacteremia due to methicillin resistant Staphylococcus aureus Code(s): R78.81 - Bacteremia Status: Acute - Plan 32-year-old male admitted for fever and bacteremia, with with history of IV drug use, recently diagnosed colitis status post surgery, previously discharged on Cubicin. Medically stable and cleared for discharge from hospital standpoint. Awaiting clearance from infectious disease. Awaiting final treatment plan. Cultures now respectively negative at 3 and 5 days. Sepsis, Bacteremia Hx IVDA, non-compliance with outpatient tx Continue to follow cultures Awaiting negative blood cultures ID following Continue vancomycin Continue cefepime Septic emboli Pneumonia Continue vancomycin and cefepime as above Echocardiogram negative for evidence of infective endocarditis Cervical discitis Status post discectomy on previous admit Continue antibiotics Continue as needed pain treatments DVT prophylaxis Lovenox Discharge planning Awaiting ID clearance and treatment plan.
[2017-12-08] MEDS: Vancomycin Inj 1,250 MG in Sodium Chlor 0.9% Inj 250 ML IV.SIG SCH (21:24)
[2017-12-08] MEDS: Melatonin 5 MG Tablet PO PRN (23:34)
[2017-12-09] MEDS: Enoxaparin Inj 40 MG/0.4 ML Syringe SQ SCH (00:15)
[2017-12-09] MEDS: Vancomycin Inj 1,250 MG in Sodium Chlor 0.9% Inj 250 ML IV.SIG SCH ×3 (04:24→20:17)
--- NOTE | 2017-12-09 12:06 | P.PNIM ---
Subjective Interval history: No distress from the patient today. Treatment plan to continue until December. This is discussed with the patient. He is disappointed and wanted to get out of the hospital. His lack of compliance and failure with previous treatment is discussed. The patient attributes his missed IV treatments to his car which she says broke for 2 days thus causing him to miss the treatments. His hope is he could try outpatient IV treatments again. Physical Exam Vital signs: Vital Signs 12/08/17 13:30 12/08/17 16:00 12/08/17 16:55 Temperature 97.9 F Pulse Rate 108 H 103 H 108 H Respiratory Rate 20 Blood Pressure 112/56 L Pulse Oximetry 98 12/08/17 21:30 12/09/17 00:00 12/09/17 04:00 Temperature 98.0 F 98.3 F 98.4 F Pulse Rate 107 H 124 H 113 H Respiratory Rate 18 20 20 Blood Pressure 125/83 114/66 133/81 Pulse Oximetry 98 97 97 12/09/17 09:26 Temperature 98 F Pulse Rate 99 H Respiratory Rate 18 Blood Pressure 119/77 Pulse Oximetry 96 Intake & Output 12/08/17 12/09/17 12/09/17 18:59 06:59 18:59 Intake Total 610 / 610 622.5 / 622.5 Output Total 3 / 3 Balance 607 / 607 622.5 / 622.5 Weight 65 kg 64.4 kg Intake: IV 250 / 250 262.5 / 262.5 Vancomycin Inj 1,000 MG In NS 250 / 250 Inj 250 ML @ 250 mls/hr IV.SIG Q6H [facility] Rx#:[id number] Vancomycin Inj 1,250 MG In NS 262.5 / 262.5 Inj 250 ML @ 250 mls/hr IV.SIG Q8H [facility] Rx#:[id number] Oral 360 / 360 360 / 360 Output: Urine 3 / 3 Other: # Voids 2 Date of Last Bowel Movement 12/08/17 # Bowel Movements 1 Narrative: GENERAL: NAD, A&Ox3 HEAD: Normocephalic. NECK: Supple, trachea midline. No lymphadenopathy. EYES: No scleral icterus. No injection or drainage. CARDIOVASCULAR: Regular rate and rhythm without murmurs, gallops, or rubs. RESPIRATORY: Breath sounds equal bilaterally. No accessory muscle use. GASTROINTESTINAL: Abdomen soft, non-tender, nondistended. MUSCULOSKELETAL: No cyanosis, or edema. SKIN: Warm and dry. NEURO: No focal neurological deficits. Results - Labs CBC & Chem 7: 12/03/17 09:21 12/08/17 06:00 Microbiology 12/04/17 10:45 Blood - Peripheral Aerobic Blood Culture - Final No growth in 5 days 12/04/17 10:45 Blood - Peripheral Anaerobic Blood Culture - Final No growth in 5 days Assessment and Plan - Assessment (1) Septic embolism Code(s): I26.90 - Septic pulmonary embolism without acute cor pulmonale Status : Acute (2) Bacteremia due to methicillin resistant Staphylococcus aureus Code(s): R78.81 - Bacteremia Status: Acute - Plan 32-year-old male admitted for fever and bacteremia, with with history of IV drug use, recently diagnosed colitis status post surgery, previously discharged on Cubicin. Current plan is IV antibiotic treatments until 01/10/2018. Continue to monitor vital signs. Sepsis, Bacteremia Hx IVDA, non-compliance with outpatient tx Continue to follow cultures Awaiting negative blood cultures ID following Continue vancomycin Continue cefepime Septic emboli Pneumonia Continue vancomycin and cefepime as above Echocardiogram negative for evidence of infective endocarditis Cervical discitis Status post discectomy on previous admit Continue antibiotics Continue as needed pain treatments DVT prophylaxis Lovenox Discharge planning Awaiting ID clearance and treatment plan.
[2017-12-09] MEDS: Sod Chloride 0.9% Inj 1,000 ML IV.CONT SCH ×2 (19:35→19:36)
[2017-12-09] MEDS ORDERED: Pharmacy Ordered Lab Info OTHER ONE (19:45)
[2017-12-10] MEDS: Enoxaparin Inj 40 MG/0.4 ML Syringe SQ SCH (00:28)
[2017-12-10] MEDS: Melatonin 5 MG Tablet PO PRN (00:33)
[2017-12-10] MEDS: Sod Chloride 0.9% Inj 1,000 ML IV.CONT SCH ×3 (02:00→23:03)
[2017-12-10] MEDS: Vancomycin Inj 1,250 MG in Sodium Chlor 0.9% Inj 250 ML IV.SIG SCH ×3 (04:56→20:25)
[2017-12-10 09:31] LABS: Baso % (Auto) 0.3 % (0.0-2.0); Eos # (Auto) 0.1 th/mm3 (0.0-0.4); Eos % (Auto) 1.5 % (0.0-4.0); Hematocrit 30.9 % (39.0-51.0); Hemoglobin 10.7 gm/dL (13.0-17.0); Lymph # (Auto) 1.2 th/mm3 (1.0-4.8); Mean Corpuscular HGB Conc 34.5 % (32.0-36.0); Mean Corpuscular Hemoglobin 28.6 pg (27.0-34.0); Mean Corpuscular Volume 82.9 fL (80.0-100.0); Mean Platelet Volume 6.8 fL (7.0-11.0); Mono # (Auto) 0.5 th/mm3 (0.0-0.9); Mono % (Auto) 5.8 % (0.0-8.0); Neut # (Auto) 6.8 th/mm3 (1.8-7.7); Neut % (Auto) 78.4 % (16.0-70.0); Platelet Count 358 th/mm3 (150-450); Red Blood Count 3.73 mil/mm3 (4.50-5.90); Red Cell Distribution Width 13.5 % (11.6-17.2); White Blood Count 8.7 th/mm3 (4.0-11.0)
[2017-12-10 10:14] LABS: Anion Gap 10 meq/L (5-15); Blood Urea Nitrogen 12 mg/dL (7-18); Carbon Dioxide 23.4 meq/L (21.0-32.0); Chloride 100 meq/L (98-107); Glomerular Filtration Rate Greater Than 89 mL/min (>89); Glucose,Random 93 mg/dL (74-106); Potassium 4.3 meq/L (3.5-5.1); Sodium 133 meq/L (136-145)
--- NOTE | 2017-12-10 10:43 | P.PNIM ---
Subjective Interval history: Had low-grade fever but patient was asymptomatic, T-max 100.3. No complaints, no shortness of breath, still with mild left-sided chest pain, stable. Physical Exam Vital signs: Vital Signs 12/09/17 13:09 12/09/17 20:00 12/10/17 00:00 Temperature 97.8 F 98.3 F 98.8 F Pulse Rate 106 H 124 H 109 H Respiratory Rate 18 18 18 Blood Pressure 110/71 140/88 136/61 Pulse Oximetry 97 95 96 12/10/17 02:00 12/10/17 02:01 12/10/17 04:00 Temperature 100.3 F H Pulse Rate 110 H Respiratory Rate 20 20 18 Blood Pressure 131/59 L Pulse Oximetry 97 12/10/17 05:30 12/10/17 08:45 12/10/17 10:26 Temperature 99.5 F Pulse Rate 102 H Respiratory Rate 20 18 15 Blood Pressure 149/79 H Pulse Oximetry 97 Intake & Output 12/09/17 12/10/17 12/10/17 18:59 06:59 18:59 Intake Total 787.5 / 787.5 Balance 787.5 / 787.5 Weight 64.8 kg Intake: IV 787.5 / 787.5 Vancomycin Inj 1,250 MG In NS 787.5 / 787.5 Inj 250 ML @ 250 mls/hr IV.SIG Q8H [facility] Rx#:[id number] Other: # Voids 3 # Bowel Movements 1 Narrative: GENERAL: NAD HEAD: Normocephalic. NECK: Supple, trachea midline. No lymphadenopathy. EYES: No scleral icterus. No injection or drainage. CARDIOVASCULAR: Regular rate and rhythm without murmurs, gallops, or rubs. RESPIRATORY: Breath sounds equal bilaterally. No accessory muscle use. GASTROINTESTINAL: Abdomen soft, non-tender, nondistended. MUSCULOSKELETAL: No cyanosis, or edema. NEURO: Alert awake and oriented 3, no focal neurological deficits. Results - Labs CBC & Chem 7: 12/10/17 08:40 12/10/17 08:40 Laboratory Results - last 24 hr 12/10/17 12/10/17 12/10/17 08:40 08:40 08:40 WBC 8.7 RBC 3.73 L Hgb 10.7 L Hct 30.9 L MCV 82.9 MCH 28.6 MCHC 34.5 RDW 13.5 Plt Count 358 MPV 6.8 L Neut % (Auto) 78.4 H Lymph % (Auto) 14.0 [place] % (Auto) 5.8 Eos % (Auto) 1.5 Baso % (Auto) 0.3 Neut # (Auto) 6.8 Lymph # (Auto) 1.2 [place] # (Auto) 0.5 Eos # (Auto) 0.1 Baso # (Auto) 0.0 WBC Differential . Differential Comment Auto diff final Sodium 133 L Potassium 4.3 Chloride 100 Carbon Dioxide 23.4 Anion Gap 10 BUN 12 Creatinine 0.68 Estimated GFR Greater than 89 Random Glucose 93 Calcium 9.0 Random Vancomycin 25.9 Microbiology 12/04/17 10:45 Blood - Peripheral Aerobic Blood Culture - Final No growth in 5 days 12/04/17 10:45 Blood - Peripheral Anaerobic Blood Culture - Final No growth in 5 days Assessment and Plan - Assessment (1) Septic embolism Code(s): I26.90 - Septic pulmonary embolism without acute cor pulmonale Status : Acute (2) Bacteremia due to methicillin resistant Staphylococcus aureus Code(s): R78.81 - Bacteremia Status: Acute - Plan 32-year-old male admitted for fever and bacteremia, with with history of IV drug use, recently diagnosed colitis status post surgery, previously discharged on Cubicin. Sepsis, Bacteremia Hx IVDA, non-compliance with outpatient tx Blood culture from admission up to 11/30/2017 grew MRSA, repeat blood cultures from 12/02/2017 negative to date. ID following, was in cefepime, switch to Levaquin. Continue vancomycin IV until 01/10/2018. Repeat blood culture with new fever. Check CBC and BMP. Septic emboli Pneumonia Continue vancomycin as above, CT scan of the chest showed multiple wedge-shaped consolidation in the lungs consistent with septic emboli. Echocardiogram negative for evidence of infective endocarditis Cervical discitis Status post discectomy on previous admit Continue antibiotics Continue as needed pain treatments DVT prophylaxis Lovenox Discharge planning Awaiting ID clearance and treatment plan. Antibiotic stop date 01/10/2018, will discuss with infectious disease in case management. I spent 35 minutes [id number] with the patient or on the shahid discussing the patient's disposition, prognosis and plan of care with his/her caregivers. Over half of time spent was devoted to counseling the patient regarding treatment and coordinating care with caregivers and case management.
[2017-12-11] MEDS: Enoxaparin Inj 40 MG/0.4 ML Syringe SQ SCH (00:15)
[2017-12-11] MEDS: Vancomycin Inj 1,250 MG in Sodium Chlor 0.9% Inj 250 ML IV.SIG SCH ×3 (04:40→19:58)
[2017-12-11] MEDS: Sod Chloride 0.9% Inj 1,000 ML IV.CONT SCH ×2 (09:48→17:58)
--- NOTE | 2017-12-11 09:55 | P.PNIM ---
Subjective Interval history: Still with recurring low-grade fever at night 100.8, asymptomatic, no sweats. Patient does not have any new complaints. Still with mild left thoracic pain but no shortness of breath. Physical Exam Vital signs: Vital Signs 12/10/17 10:26 12/10/17 11:29 12/10/17 12:00 Temperature 98.5 F Pulse Rate 109 H 111 H Respiratory Rate 15 18 Blood Pressure 175/73 H Pulse Oximetry 97 12/10/17 16:00 12/10/17 16:40 12/10/17 20:00 Temperature 99.2 F 98.4 F Pulse Rate 105 H 117 H 114 H Respiratory Rate 16 18 Blood Pressure 127/58 L 151/66 H Pulse Oximetry 96 96 12/10/17 23:29 12/11/17 00:00 12/11/17 03:21 Temperature 98.6 F Pulse Rate 113 H Respiratory Rate 20 18 20 Blood Pressure 123/66 Pulse Oximetry 98 12/11/17 04:00 12/11/17 04:02 12/11/17 07:31 Temperature 100.8 F H Pulse Rate 118 H 112 H Respiratory Rate 20 16 Blood Pressure 140/73 Pulse Oximetry 94 L 12/11/17 08:10 12/11/17 08:57 Temperature 98.1 F Pulse Rate 97 H Respiratory Rate 16 16 Blood Pressure 135/74 Pulse Oximetry Intake & Output 12/10/17 12/11/17 12/11/17 18:59 06:59 18:59 Intake Total 925.0 / 925.0 Balance 925.0 / 925.0 Intake: IV 525.0 / 525.0 Vancomycin Inj 1,250 MG In NS 525.0 / 525.0 Inj 250 ML @ 250 mls/hr IV.SIG Q8H [facility] Rx#:[id number] Oral 400 / 400 Other: # Voids 1 3 Date of Last Bowel Movement 12/08/17 Results - Labs CBC & Chem 7: 12/10/17 08:40 12/10/17 08:40 Laboratory Results - last 24 hr 12/10/17 08:40 Sodium 133 L Potassium 4.3 Chloride 100 Carbon Dioxide 23.4 Anion Gap 10 BUN 12 Creatinine 0.68 Estimated GFR Greater than 89 Random Glucose 93 Calcium 9.0 Assessment and Plan - Assessment (1) Septic embolism Code(s): I26.90 - Septic pulmonary embolism without acute cor pulmonale Status : Acute (2) Bacteremia due to methicillin resistant Staphylococcus aureus Code(s): R78.81 - Bacteremia Status: Acute - Plan 32-year-old male admitted for fever and bacteremia, with with history of IV drug use, recently diagnosed colitis status post surgery, previously discharged on Cubicin. Sepsis, Bacteremia Hx IVDA, non-compliance with outpatient tx Blood culture from admission up to 11/30/2017 grew MRSA, repeat blood cultures from 12/02/2017 negative to date. ID following, was in cefepime, switch to Levaquin. Continue vancomycin IV until 01/10/2018. No leukocytosis, BMP stable. With low-grade fevers, will recheck blood cultures. Septic emboli Pneumonia Continue vancomycin as above, CT scan of the chest showed multiple wedge-shaped consolidation in the lungs consistent with septic emboli. Echocardiogram negative for evidence of infective endocarditis Cervical discitis Status post discectomy on previous admit Continue antibiotics Continue as needed pain treatments DVT prophylaxis Lovenox Discharge planning Awaiting ID clearance and treatment plan. Antibiotic stop date 01/10/2018, will discuss with infectious disease in case management. I spent 35 minutes [id number] with the patient or on the shahid discussing the patient's disposition, prognosis and plan of care with his/her caregivers. Over half of time spent was devoted to counseling the patient regarding treatment and coordinating care with caregivers and case management.
--- NOTE | 2017-12-11 12:58 | P.PNID ---
Subjective Remarks: Patient is a 32-year-old male, with known history of IV drug use, presented to the hospital complaining of fever and chills, and left-sided chest pain. This is been going on for several days. He denies any significant cough or congestion. He has not had any nausea or vomiting or any diarrhea or urinary complaints. His history is significant for a diagnosis of C5-C6 discitis and epidural abscess for which she was hospitalized October 18 - October 26. At that time cultures were negative, but the patient was on IV antibiotics for at least 2-3 days before he had surgery. All his blood cultures were negative. Patient was discharge and arrangements were made for patient to get IV antibiotics at the infusion clinic. He was on an oral quinolone, and IV Cubicin. His PICC line got dislodged, and it was change on October 27. Patient missed most of his IV antibiotic treatment. The last time he was seen in the infusion clinic was November 13. He claims that he did not have any transportation that is why he was not able to go to the clinic. Patient denies using his PICC line for drugs but he admits to using IV drugs. Since admission he has had fevers on the first hospital day, and he is afebrile today. He is complaining of left-sided chest pain. His blood cultures are now reported as growing gram-positive cocci. Chest x-ray showing a left base infiltrate. CT of the cervical spine is unremarkable with no evidence of abscess. Patient still has his PICC line in the right upper extremity. Infectious disease consultation has been requested to assist with evaluation and treatment of fever and sepsis. Notes reviewed Temps low grade 100+ C/O pain at previous IV site - both forearms No rash No diarrhea No N/V PICC line C/S MRSA, GNR and Corynebacterium BC with MRSA, last (+) 11/30 CT chest with septic emboli CT A/P ok Echo ok Antibiotics: Vancomycin IV Lines: New PIV sites look Past Medical History: Reviewed. Allergies/Adverse Reactions: Allergies No Known Allergies Allergy (Unverified 11/13/17 09:36) Objective Vital Signs 12/10/17 16:00 12/10/17 16:40 12/10/17 20:00 Temperature 99.2 F 98.4 F Pulse Rate 105 H 117 H 114 H Respiratory Rate 16 18 Blood Pressure 127/58 L 151/66 H Pulse Oximetry 96 96 12/10/17 23:29 12/11/17 00:00 12/11/17 03:21 Temperature 98.6 F Pulse Rate 113 H Respiratory Rate 20 18 20 Blood Pressure 123/66 Pulse Oximetry 98 12/11/17 04:00 12/11/17 04:02 12/11/17 07:31 Temperature 100.8 F H Pulse Rate 118 H 112 H Respiratory Rate 20 16 Blood Pressure 140/73 Pulse Oximetry 94 L 12/11/17 08:10 12/11/17 08:57 12/11/17 10:55 Temperature 98.1 F Pulse Rate 97 H 87 Respiratory Rate 16 16 Blood Pressure 135/74 Pulse Oximetry Intake & Output 12/10/17 12/11/17 12/11/17 18:59 06:59 18:59 Intake Total 925.0 / 925.0 240 / 240 Balance 925.0 / 925.0 240 / 240 Intake: IV 525.0 / 525.0 Vancomycin Inj 1,250 MG In NS 525.0 / 525.0 Inj 250 ML @ 250 mls/hr IV.SIG Q8H [facility] Rx#:[id number] Oral 400 / 400 240 / 240 Other: # Voids 1 3 Date of Last Bowel Movement 12/08/17 12/04/17 10:45 Blood - Peripheral Aerobic Blood Culture - Final No growth in 5 days 12/04/17 10:45 Blood - Peripheral Anaerobic Blood Culture - Final No growth in 5 days Lab - Hematology Results 12/10/17 08:40 WBC 8.7 RBC 3.73 L Hgb 10.7 L Hct 30.9 L MCV 82.9 MCH 28.6 MCHC 34.5 RDW 13.5 Plt Count 358 MPV 6.8 L Neut % (Auto) 78.4 H Lymph % (Auto) 14.0 [place] % (Auto) 5.8 Eos % (Auto) 1.5 Baso % (Auto) 0.3 Neut # (Auto) 6.8 Lymph # (Auto) 1.2 [place] # (Auto) 0.5 Eos # (Auto) 0.1 Baso # (Auto) 0.0 WBC Differential . Differential Comment Auto diff final Lab - Chemistry Results 12/10/17 08:40 Sodium 133 L Potassium 4.3 Chloride 100 Carbon Dioxide 23.4 Anion Gap 10 BUN 12 Creatinine 0.68 Estimated GFR Greater than 89 Random Glucose 93 Calcium 9.0 Imaging: ITS Impressions Cervical Spine CT 11/27/17 22:02 CONCLUSION: No acute bony process in the cervical spine. Chest X-Ray 11/28/17 00:00 CONCLUSION: There continues to be a patchy infiltrate in the left lower lung without significant change versus slightly increased compared to the prior study. Abdomen/Pelvis CT 11/29/17 00:00 CONCLUSION: 1. Small bilateral pleural effusions with dependent atelectasis in the lungs. 2. Hepatosplenomegaly. 3. Fixation across mild compression deformity of L2. 4. No abscess identified within the abdomen and pelvis. Chest CT 11/29/17 00:00 CONCLUSION: 1. Multiple peripheral wedge-shaped consolidations in the lungs with some early cavitation in the anterior segment right upper lobe. Findings are most characteristic of septic embolic disease. 2. Small bilateral pleural effusions. No pericardial fluid. Physical Exam: GENERAL: Well-nourished well-developed, not in acute distress SKIN: Cool and dry, no generalized rash. HEAD: Atraumatic. Normocephalic. No temporal or scalp tenderness. EYES: Pupils equal round and reactive. Scleral icterus. No injection or drainage. No petechia ENT: Moist mucosa, no lesions noted NECK: Trachea midline. Supple, nontender, no meningeal signs. CARDIOVASCULAR: HS audible. RESPIRATORY: Clear to auscultation GASTROINTESTINAL: Abdomen soft nontender. MUSCULOSKELETAL: Extremities without clubbing, cyanosis. RUE - has erythema with tender palpable cord on his forearm, no fluctuance, no purulence at site. RUE - below antecub fossa is an area of swelling and induration with mild erythema, no fluctuance, at previous IV site NEUROLOGICAL: Alert oriented 3. Nonfocal. Psych cooperative New PIV line sites ok. Assessment and Plan - Plan Impression Sepsis, with MRSA, likely related to his PICC, likely him using his PICC for IVDU - suspicious for IE, echo negative - has septic lung emboli Hx cervical discitis, epidural abscess, S/P surgery L base infiltrate, ?septic emboli Phlebitis BUE previous IV sites Recommendation Follow C/S Continue IV Vanco (target 15-20) - patient was not compliant when he was sent home to get his IV Abx in infusion clinic for his cervical spine infection Follow cultures Follow temps US LUE Try NSAID for superficial phlebitis Monitor progress Will likely need Rx in house for his MRSA sepsis Will have hospitalist order and follow blood work weekly: CBC, creat and LFT
[2017-12-11] MEDS: Ibuprofen 400 MG Tablet PO SCH ×2 (13:17→17:01)
--- NOTE | 2017-12-11 16:21 | US ---
EXAM DATE: 12/11/2017 3:18 PM EDT AGE/SEX: 32 years / Male INDICATIONS: Swelling to the left arm distal to the antecubital fossa. CLINICAL DATA: This is the patient's initial encounter. Patient reports that signs and symptoms have been present for 2 days and indicates a pain score of 0/10. MEDICAL/SURGICAL HISTORY: . IVDU. Discectomy, cervical. Fusion, lumbar. COMPARISON: No prior exams available for comparison. FINDINGS: Grayscale and color Doppler evaluation of the area of concern involving the left antecubital fossa wa s performed. These images show echogenic nonocclusive thrombus involving the cephalic vein extending from the antecubital fossa to the mid forearm. Cephalic vein is patent proximal and distal to this. N o abscess or fluid collection. CONCLUSION: 1. Small volume nonocclusive thrombus involving the cephalic vein as detailed above. Electronically signed by: Joseph Emerson MD 12/11/2017 4:19 PM EDT
[2017-12-12] MEDS: Enoxaparin Inj 40 MG/0.4 ML Syringe SQ SCH (00:32)
[2017-12-12] MEDS: Melatonin 5 MG Tablet PO PRN (01:41)
[2017-12-12] MEDS ORDERED: Pharmacy Ordered Lab Info OTHER ONE (03:45)
[2017-12-12] MEDS: Sod Chloride 0.9% Inj 1,000 ML IV.CONT SCH (03:56)
[2017-12-12] MEDS: Vancomycin Inj 1,250 MG in Sodium Chlor 0.9% Inj 250 ML IV.SIG SCH (03:56)
[2017-12-12 07:43] VITALS: RESP 12
[2017-12-12 09:09] VITALS: BP 129/65; PULSE 98; TEMP 96.3; O2SAT 96
[2017-12-12] MEDS: Ibuprofen 400 MG Tablet PO SCH (09:10)
--- NOTE | 2017-12-12 13:44 | P.PNIM ---
Subjective Interval history: Ashes were found in the bathroom and patient's room and the room smelled of cigarette smoke. Tar was also found around the patient's IV line. Per patient , he did not smoke cigarettes and said it was make-up. He also denied tampering with his IV lines. He has also been refusing blood work and his vancomycin. He wanted to leave against medical advice. He was advised that this may be deleterious to his health but he still decided to leave AMA. Physical Exam Vital signs: Vital Signs 12/11/17 16:00 12/11/17 20:00 12/12/17 00:00 Temperature 98 F 97.4 F L 97.8 F Pulse Rate 101 H 116 H 99 H Respiratory Rate 17 20 20 Blood Pressure 130/70 128/68 119/64 Pulse Oximetry 98 94 L 95 12/12/17 02:45 12/12/17 04:00 12/12/17 07:00 Temperature 97.3 F L Pulse Rate 87 Respiratory Rate 20 20 12 Blood Pressure 126/61 Pulse Oximetry 95 12/12/17 08:00 12/12/17 08:55 Temperature 96.3 F L Pulse Rate 96 H 98 H Respiratory Rate 12 Blood Pressure 129/65 Pulse Oximetry 96 Intake & Output 12/11/17 12/12/17 12/12/17 18:59 06:59 18:59 Intake Total 1640 / 1640 582.5 / 582.5 Balance 1640 / 1640 582.5 / 582.5 Weight 65.4 kg Intake: IV 500 / 500 262.5 / 262.5 Vancomycin Inj 1,250 MG In NS 500 / 500 262.5 / 262.5 Inj 250 ML @ 250 mls/hr IV.SIG Q8H JOYCE Rx#:[id number] Oral 1140 / 1140 320 / 320 Other: # Voids 5 3 Date of Last Bowel Movement 12/11/17 12/11/17 # Bowel Movements 1 1 Narrative: GENERAL: NAD HEAD: Normocephalic. NECK: Supple, trachea midline. No lymphadenopathy. EYES: No scleral icterus. No injection or drainage. CARDIOVASCULAR: Regular rate and rhythm without murmurs, gallops, or rubs. RESPIRATORY: Breath sounds equal bilaterally. No accessory muscle use. GASTROINTESTINAL: Abdomen soft, non-tender, nondistended. MUSCULOSKELETAL: No cyanosis, or edema. Bilateral upper extremities with mild tenderness and erythema. NEURO: Alert awake and oriented 3, no focal neurological deficits. Results - Labs CBC & Chem 7: 12/10/17 08:40 12/10/17 08:40 - Imaging Impressions Upper Extremity Ultrasound 12/11/17 00:00 CONCLUSION: 1. Small volume nonocclusive thrombus involving the cephalic vein as detailed above. Assessment and Plan - Assessment (1) Septic embolism Code(s): I26.90 - Septic pulmonary embolism without acute cor pulmonale Status : Acute (2) Bacteremia due to methicillin resistant Staphylococcus aureus Code(s): R78.81 - Bacteremia Status: Acute - Plan 32-year-old male admitted for fever and bacteremia, with with history of IV drug use, recently diagnosed colitis status post surgery, previously discharged on Cubicin. Sepsis, Bacteremia Hx IVDA, non-compliance with outpatient tx Blood culture from admission up to 11/30/2017 grew MRSA, repeat blood cultures from 12/02/2017 negative to date. Infectious disease following, patient need to continue vancomycin and patient wants to leave AGAINST MEDICAL ADVICE despite being told that this can be fatal. -Patient is suspected to continue to use IV drugs in the hospital with evidence of his IV lines being tampered, he also has superficial thrombosis of the cephalic vein which is nonocclusive and continuing fever. A urine drug screen was ordered at patient refused to give any urine sample. He is also refusing vancomycin and blood draws. Septic emboli Pneumonia Continue vancomycin as above, CT scan of the chest showed multiple wedge-shaped consolidation in the lungs consistent with septic emboli. Echocardiogram negative for evidence of infective endocarditis Cervical discitis Status post discectomy on previous admit Continue antibiotics Continue as needed pain treatments DVT prophylaxis Lovenox
--- NOTE | 2017-12-12 13:47 | P.DS ---
Date of admission: 11/28/17 00:08 Primary care physician: No Primary Care Physician Brief History from admission: This is a 32-year-old male with history of IV drug use, was recently discharge in the hospital October 18 - October 26, found to have C5-C6 discitis status post cervical discectomy. Patient seen by infectious disease and was discharged on IV Cubicin. Cultures were negative. Patient allegedly has been going to the ambulatory clinic to receive his Cubicin infusion until last week when he stopped going because he does not have any transportation. There is report from the emergency department but after further probing, he admitted to hearing IV use. He however adamantly denied using his PICC line for heroine use. Complaint was fever, chills and left pain radiating from his neck. Since discharge, there is no change in his neck pain. No other complaints like shortness of breath, cough, diarrhea, urinary frequency, urgency or low back pain. DS: Diagnosis - Discharge Diagnosis (1) Septic embolism Status: Acute (2) Bacteremia due to methicillin resistant Staphylococcus aureus Status: Acute DS: Summary Hospital Course: 32-year-old male admitted for fever and bacteremia, with with history of IV drug use, recently diagnosed colitis status post surgery, previously discharged on Cubicin but was noncompliant with outpatient ambulatory infusion. Sepsis with bacteremia was suspected. Blood culture from admission up to 11/30/2017 grew MRSA, repeat blood cultures from 12/02/2017 negative to date. Echocardiogram was negative for endocarditis. CT scan of the chest showed multiple wedge- shaped consolidation in the lungs consistent with septic emboli. Infectious disease was consulted, patient was placed on vancomycin and Levaquin but patient wanted to leave AGAINST MEDICAL ADVICE despite being told that this can be fatal. Patient is suspected to continue to use IV drugs in the hospital as evidenced by his IV lines being tampered, he also has superficial thrombosis of the cephalic vein which is nonocclusive and continuing fever. A urine drug screen was ordered but patient refused to give any urine sample. He is also refusing vancomycin and blood draws. Patient left AGAINST MEDICAL ADVICE. - Time Spent with Patient Total time spent providing and/or coordinating discharge services: Greater than 30 minutes - Quality: VTE Deep Vein Thrombosis/Pulmonary Embolism Present on Admission: No Exam Vital signs: Vital Signs 12/11/17 16:00 12/11/17 20:00 12/12/17 00:00 Temperature 98 F 97.4 F L 97.8 F Pulse Rate 101 H 116 H 99 H Respiratory Rate 17 20 20 Blood Pressure 130/70 128/68 119/64 Pulse Oximetry 98 94 L 95 12/12/17 02:45 12/12/17 04:00 12/12/17 07:00 Temperature 97.3 F L Pulse Rate 87 Respiratory Rate 20 20 12 Blood Pressure 126/61 Pulse Oximetry 95 12/12/17 08:00 12/12/17 08:55 Temperature 96.3 F L Pulse Rate 96 H 98 H Respiratory Rate 12 Blood Pressure 129/65 Pulse Oximetry 96 Intake & Output 12/11/17 12/12/17 12/12/17 18:59 06:59 18:59 Intake Total 1640 / 1640 582.5 / 582.5 Balance 1640 / 1640 582.5 / 582.5 Weight 65.4 kg Intake: IV 500 / 500 262.5 / 262.5 Vancomycin Inj 1,250 MG In NS 500 / 500 262.5 / 262.5 Inj 250 ML @ 250 mls/hr IV.SIG Q8H JOYCE Rx#:[id number] Oral 1140 / 1140 320 / 320 Other: # Voids 5 3 Date of Last Bowel Movement 12/11/17 12/11/17 # Bowel Movements 1 1 Results Procedures completed during hospitalization: none - Impressions ITS Impressions Cervical Spine CT 11/27/17 22:02 CONCLUSION: No acute bony process in the cervical spine. Chest X-Ray 11/28/17 00:00 CONCLUSION: There continues to be a patchy infiltrate in the left lower lung without significant change versus slightly increased compared to the prior study. Abdomen/Pelvis CT 11/29/17 00:00 CONCLUSION: 1. Small bilateral pleural effusions with dependent atelectasis in the lungs. 2. Hepatosplenomegaly. 3. Fixation across mild compression deformity of L2. 4. No abscess identified within the abdomen and pelvis. Chest CT 11/29/17 00:00 CONCLUSION: 1. Multiple peripheral wedge-shaped consolidations in the lungs with some early cavitation in the anterior segment right upper lobe. Findings are most characteristic of septic embolic disease. 2. Small bilateral pleural effusions. No pericardial fluid. Upper Extremity Ultrasound 12/11/17 00:00 CONCLUSION: 1. Small volume nonocclusive thrombus involving the cephalic vein as detailed above. Discharge Plan - Discharge Disposition Patient Disposition: Left Against Medical Advice - Discharge Order Discharge Orders: AMA Discharge (Routine); Ordered 12/12/17 Ordered By: Michelle Willson - Physicians Team Primary Care Provider: Primary Care Marry Tijerina Attending Provider: Michelle Willson Other Providers: Armida Jay MD
== END 2017-12-12 11:55 | disposition left against medical advice (07) ==
LOC: NEPC 19:25 → NEDA 11-28 00:08 → N05 11-28 01:35
PROVIDERS: ADMIT Hospitalist; ATTEND Hospitalist